=== PATIENT | male | born 1940 | race Caucasian/White ===

== ENCOUNTER 2018-04-25 17:01 | Inpatient (IN) | payer OTHER ==
[~2018-04-25] VITALS: Ht 175.3 cm; Wt 73.3 kg
[2018-04-25] VITALS (7 sets, daily range): BP systolic 129–169; BP diastolic 60–85
--- NOTE | ~2018-04-25 | H ---
[facility] [place] [address] HISTORY AND PHYSICAL Name: FLACO SINGH Room #: 238-P ADM IN M.R.#: [id number] Admission: 04/25/18 Attend Phys: Marcio Lawler MD Discharge: Date of : 38 Report #: [id number] THIS REPORT FOR: //name// CC: Popeye Lawler DATE OF SERVICE: 04/25/2018 HISTORY OF PRESENT ILLNESS: The patient is an 78-year-old white male who was admitted with left-sided weakness, leaning to his left, but his left arm hanging. He also had slurred speech. He was diagnosed with a CVA and is underwent TPA. He was noted to have 50% left internal carotid artery stenosis. CT showed a 1.4 cm lytic lesion within the right frontoparietal calvarium thought to likely be benign. He has a followup CT scan ordered later today. He is currently in the intensive care unit. We are seeing him in rehabilitation medicine consultation. PAST MEDICAL HISTORY: Includes hypertension, hyperlipidemia, coronary artery disease status post stenting, tobacco abuse. He has had right patellar surgery. He has had a right hip replacement. He had a left shoulder, apparently a fracture of the humeral head and underwent therapy and never regained good range of motion of that left shoulder. There is a note of some mild dementia, although he has been living in the community. ALLERGIES: No known drug allergies. HABITS: Tobacco 1 to 1-1/2 packs per day, current every day smoker. There is a history of some past alcohol usage. FAMILY HISTORY: Heart disease and hypertension. SOCIAL HISTORY: He lives with his , trailer home. Plan, however, is to live with his daughter and son-in-law in a house, 4 steps in total to get in. Daughter does work, but will be taking time off to assist her father as indicated. The patient did premorbidly ambulated without gait aids and was driving in the community. There is an involved son as well in the area. REVIEW OF SYSTEMS: He did not offer any current complaints of chest pain, shortness of breath or abdominal discomfort. No complaints of focal pain. Denies any swallowing issues, although he does note the slurring of speech. PHYSICAL EXAMINATION: GENERAL: He is a pleasant 78-year-old thin white male, in no obvious distress. VITAL SIGNS: Last recorded temperature 98.6, pulse 69, respirations 20, and blood pressure 139/37. NEUROLOGIC: The patient is alert, pleasant. He has a definite left facial [facility] [address] [place] [address] HISTORY AND PHYSICAL Name: FLACO SINGH Room #: 238-P [facility].#: [id number] Admission: 04/25/18 Attend Phys: Marcio Lawler MD Discharge: Date of : 38 Report #: [id number] droop with depressed left nasolabial fold. EOMs appeared to be full. Son notes that the patient did have some decreased left visual field problems premorbidly. He has good extraocular movements. Functional range of motion of the right upper and right lower extremity without focal weakness. DTRs are trace to 1. Left upper extremity, no volitional movement was noted, proximal or distal. Tone is decreased. Faulkner's negative. Left lower extremity, he does have some movement, probably a grade 3- proximally and 3- distally. He is able to wiggle those toes some. DTRs were trace. No clonus. Sensation reasonably intact to simultaneous stimulation, left face and both upper and lower extremities. ASSESSMENT: This is an 78-year-old right-handed white male with the following problem list: 1. Nondominant hemispheric right-sided cerebrovascular accident. 2. Left hemiparesis, upper extremity greater than lower extremity. 3. Left-sided facial weakness with dysarthria. 4. A 50% left internal carotid artery stenosis. 5. The patient is status post TPA. 6. History of coronary artery disease, status post stenting. 7. Tobacco abuse. 8. Hypertension. 9. Hyperlipidemia. 10. Prior history of left shoulder remote fracture with decreased range of motion. PLAN: He is currently in the ICU. He is to have a followup CT of the head today. Therapy evaluations are underway with PT, OT and speech. He certainly may benefit from an acute in-hospital inpatient rehabilitation program as he further medically stabilizes. Discussion with the family. We will be glad to follow along with you regarding his rehab therapy needs. By: [id number] Ulysses Khalil MD /nt
[2018-04-25 17:34] LABS: HEMATOCRIT 46.5 % (42.0-52.0); HEMOGLOBIN 16.1 gm/dL (14.0-18.0); MCH 30.3 pg (26.0-34.0); MCHC 34.6 g/dL (28.0-37.0); MCV 87.5 fL (80.0-100.0); PLATELET COUNT 297 thou/uL (150-400); RBC 5.31 mil/uL (4.50-6.00); RDW 13.4 % (10.5-14.5); WBC 7.1 thou/uL (4.0-11.0)
[2018-04-25 17:45] LABS: ANION GAP 11 mmol/L (7-16); BUN 13 mg/dL (7-18); CHLORIDE 101 mmol/L (98-107); CO2 28 mmol/L (21-32); GLUCOSE 123 mg/dL (74-106); POTASSIUM 3.5 mmol/L (3.5-5.1); SODIUM 140 mmol/L (136-145)
--- NOTE | 2018-04-25 17:51 | EKG ---
[place] [address] [facility] [place] [address] ELECTROCARDIOGRAM REPORT Name: FLACO SINGH Room #: REG JYOTI Valencia#: [id number] Admission: 04/25/18 Attend Phys: Discharge: Date of : 36 Report #: [id number] THIS REPORT FOR: //name// [facility] ED Test Date: 2018-04-25 Test Time: 17:21:01 Pat Name: FLACO SINGH Department: Room: Gender: M Way Inspector: MIKEEfra : [id number] Requested By: Melly Peterson Order Number: [id number] MD: Jayesh Pettit Measurements Intervals Garber Rate: 75 P: -16 SD: 190 QRS: -49 QRSD: 145 T: 105 QT: 435 QTc: 486 Interpretive Statements Sinus rhythm Left bundle branch block Occasional PVC No previous ECG available for comparison Electronically Signed On 04-25-2018 17:51:18 TABLE ATTENDANT by Jayesh Pettit [email or web address] <ELECTRONICALLY SIGNED> By: Jayesh Pettit MD 04/25/18 1751 1721 1721 Jayesh Pettit MD /EPI
[2018-04-25 17:55] LABS: ALBUMIN 3.8 g/dL (3.4-5.0); SGOT 19 U/L (15-37); SGPT 25 U/L (30-65); TOTAL BILIRUBIN 0.4 mg/dL (<0.1-1.0); TROPONIN-I <0.06 ng/mL (<0.06)
[2018-04-25 18:00] LABS: ABSOLUTE NEUTROPHILS 5.2 thou/uL (1.4-8.2); ANISOCYTOSIS 1+
[2018-04-25 18:17] LABS: URINE BILIRUBIN NEGATIVE (Negative); URINE BLOOD NEGATIVE (Negative); URINE CLARITY SLIGHTLY CLOUDY; URINE COLOR YELLOW; URINE GLUCOSE-RANDOM* NEGATIVE (Negative); URINE KETONES NEGATIVE (Negative); URINE LEUKOCYTES-REFLEX NEGATIVE (Negative); URINE NITRITE-REFLEX NEGATIVE (Negative); URINE PROTEIN (DIPSTICK) NEGATIVE (Negative); URINE UROBILINOGEN 0.2 E.U./dl (0.2-1.0)
[2018-04-25 19:14] LABS: PROTIME 9.5 Seconds (9.3-11.4)
[2018-04-25] MEDS ORDERED: AMLODIPINE BESY10 MG PO (19:14)
[2018-04-25] MEDS ORDERED: ARICEPT 5 MG TAB5 MG PO (19:14)
[2018-04-25 19:19] LABS: CHOLESTEROL 256 mg/dL (<200); HDL CHOLESTEROL 46 mg/dL (>40); LDL CHOLESTEROL 187 mg/dL (<100); TC:HDL 5.6 Ratio (Not establshd); TRIGLYCERIDE 119 mg/dL (<150); VLDL 24 mg/dL (<40)
[2018-04-25 19:21] LABS: SERUM ASSESSMENT Clear
[2018-04-25 19:47] LABS: TSH 0.725 uIU/mL (0.358-3.740)
[2018-04-26] VITALS (21 sets, daily range): BP systolic 131–172; BP diastolic 37–82
[2018-04-26 05:59] LABS: HEMATOCRIT 42.8 % (42.0-52.0); HEMOGLOBIN 15.1 gm/dL (14.0-18.0); MCH 30.7 pg (26.0-34.0); MCHC 35.2 g/dL (28.0-37.0); MCV 87.3 fL (80.0-100.0); RBC 4.9 mil/uL (4.50-6.00); RDW 13.4 % (10.5-14.5); WBC 6.8 thou/uL (4.0-11.0)
[2018-04-26 06:15] LABS: ALBUMIN 3.2 g/dL (3.4-5.0); CALCIUM 8.6 mg/dL (8.5-10.1); CREATININE 0.9 mg/dL (0.7-1.3); POTASSIUM 3.4 mmol/L (3.5-5.1); TOTAL BILIRUBIN 0.8 mg/dL (<0.1-1.0)
--- NOTE | 2018-04-26 07:00 | NUR ---
Pt received into room 238 last pm, made comfortable in bed and monitor applied. See rhythm strips. No changes in neuro status observed through the night. VS stable and SpO2 adequate on RA. Voiding per urinal without difficulty and no BM observed. Family at bedside for most of the night. Am lab results noted, continue with POC.
--- NOTE | 2018-04-26 08:00 | 2DMMODE ---
[facility] [place] [address] 2 D/M-MODE ECHOCARDIOGRAM Name: FLACO SINGH Room #: 238-P ADM IN M.R.#: [id number] Admission: 04/25/18 Attend Phys: Marcio Lawler MD Discharge: Date of : 36 Date of Service: 04/26/18 0800 Report #: [id number] THIS REPORT FOR: //name// APPROVED REPORT Study performed: 04/26/2018 06:50:40 EXAM: Comprehensive 2D, Doppler, and color-flow Echocardiogram Patient Location: ICU Room #: 238 Status: routine BSA: 1.85 HR: 70 bpm BP: 137/67 mmHg Rhythm: Sinus/Frequent PVCs Other Information Study Quality: Adequate/low window/heavy beathing. Indications CVA/TIA Hx: CAD, stent, HTN, HLP, Tobacco abuse. Echo Enhancing Agent Indication: Rule out Shunt Agent(s) / Amount(s) Used: Agitated Saline 6 cc 2D Dimensions RVDd: 35.44 mm IVSd: 14.00 (7-11mm) LVOT Diam: 22.24 (18-24mm) LVDd: 49.23 mm PWd: 11.00 (7-11mm) LVDs: 39.92 (25-40mm) Aortic Root: 36.73 mm Volumes Left Atrial Volume (Systole) Single Plane 4CH: 44.71 mL Single Plane 2CH: 59.95 mL LA ESV Index: 31.00 mL/m2 Aortic Valve AoV Peak Franco.: 1.45 m/s AO Peak Gr.: 8.38 mmHg LVOT Max P.76 mmHg LVOT Max V: 0.97 m/s [facility] [address] [place] [address] 2 D/M-MODE ECHOCARDIOGRAM Name: FLACO SINGH Room #: 238-[facility] IN .R.#: [id number] Admission: 04/25/18 Attend Phys: Marcio Lawler MD Discharge: Date of : 36 Date of Service: 04/26/18 0800 Report #: [id number] BULMARO Vmax: 2.60 cm2 Mitral Valve E/A Ratio: 0.7 MV Decel. Time: 464.62 ms MV E Max Franco.: 0.69 m/s MV A Franco.: 1.00 m/s MV PHT: 134.74 ms IVRT: 124.57 ms Pulmonary Valve PV Peak Franco.: 0.96 m/s PV Peak Gr.: 3.72 mmHg Pulmonary Vein P Vein S: 0.55 m/s P Vein A: 0.33 m/s P Vein D: 0.33 m/s P Vein S/D Ratio: 1.67 Tricuspid Valve RAP Estimate: 5.00 mmHg Left Ventricle The left ventricle is normal size. There is global hypokinesis of the left ventricle. Moderate basal septal hypertrophy is present. Left ventricular systolic function is at the lower limits of normal LVEF is 45-50%. Mild diastolic dysfunction is present (impaired relaxation pattern). Right Ventricle The right ventricle is normal size. The right ventricular systolic function is normal. Atria The left atrium size is normal. No shunting noted by contast bubble injection. The right atrium size is normal. Aortic Valve The aortic valve is mildly sclerotic. No aortic regurgitation is present. There is no aortic valvular stenosis. Mitral Valve Mild mitral annular calcification. There is no mitral valve regurgitation noted. No evidence of mitral valve stenosis. Tricuspid Valve The tricuspid valve is normal in structure. There is no tricuspid [address] [address] 2 D/M-MODE ECHOCARDIOGRAM Name: FLACO SINGH Room #: 238-[facility] IN M.R.#: [id number] Admission: 04/25/18 Attend Phys: Marcio Lawler MD Discharge: Date of : 36 Date of Service: 04/26/18 0800 Report #: [id number] valve regurgitation noted. Unable to assess PA pressure. Pulmonic Valve Pulmonic valve is not well visualized. Great Vessels The aortic root is normal in size. Ascending aorta is not well visualized. IVC is normal in size and collapses >50% with inspiration. Pericardium There is no pericardial effusion. <Conclusion> Left ventricular systolic function is at the lower limits of normal Moderate basal septal hypertrophy is present. LVEF is 45-50%. Mild diastolic dysfunction No shunting noted by contast bubble injection. The aortic valve is mildly sclerotic. No aortic regurgitation or stenosis Mild mitral annular calcification. No mitral valve regurgitation There is no pericardial effusion. <ELECTRONICALLY SIGNED> By: Maurice Cristobal MD, FACC 04/26/18799 9 9 Maurice Cristobal MD, FACC /INF
--- NOTE | 2018-04-26 10:40 | NUR ---
family services coordinator to see patient. pt still having left arm flaccidity and left lower ext weakness. left sided facial droop with slurred speech. family at bedside. dr kitchen at bedside assessing patient. pt to begin therapy hang. family agreement. this RN to follow patients stay. will visit tomorrow.
[2018-04-26] MEDS ORDERED: RESTORIL30 MG PO (13:58)
[2018-04-26] MEDS ORDERED: LISINOPRIL40 MG PO (13:59)
[2018-04-26] MEDS ORDERED: PROPRANOLOL 1010 MG PO (14:00)
[2018-04-26] MEDS ORDERED: LINZESS145 MCG PO (14:01)
[2018-04-26] MEDS ORDERED: PERCOCET PO (14:04)
[2018-04-26] MEDS ORDERED: PERCOCET 7.5-31 EACH PO (14:04)
--- NOTE | 2018-04-26 14:06 | NUR ---
CM ASSESSMENT: CASE OPENED FOR DC PLANNING. CLINICAL INFO REVIEWED. ADMIT WITH STROKE AND S/P TPA. MET WITH PT WHO IS ALERT AND ORIENTED, HIS DTR KEVIN AND SON IN LAW [place]. PT AND SPOPUSE LIVE IN MOBILE HOME WITH RAMP AT ENTRANCE. PT INDEPENDENT WITH ADL AND IADLS APPRAISER OIL AND WATER, DRIVING. NO DME OR PREVIOUS HH. THERAPY EVALS ORDERED AND DISCUSSED LIKELY NEED FOR SOME LEVEL OF REHAB WHEN MEDICALLY STABLE AND PT AND FAMILY OPEN TO RECOMMENDATION FROM MEDICAL STAFF. COMPLETED AD/DPOA AND COPY PLACED IN [facility] CHART. WILL FOLLOW TO ASSIST WITH COORDINATION OF DC NEEDS. 5N FOLLOWING.
[2018-04-26 18:10] LABS: GLYCOHEMOGLOBIN (HGB A1C) 6.1 % (4.8-5.6)
--- NOTE | 2018-04-26 20:29 | NUR ---
PATIENT ALERT AND ORIENTED X3, FORGETFUL AT TIMES. SINUS RHYTHM ON CAMPAIGN ASSISTANT. ON ROOM AIR, NO SIGNS OF RESPIRATORY DISTRESS. TOLERATING PUREED DIET WELL. NO COMPLAINTS OF PAIN. PATIENT HAS INCREASED MOVEMENT IN LEFT LEG DURING THE END OF SHIFT. FAMILY AND PATIENT UPDATED ON THE PLAN OF CARE. NO SIGNS OF ACUTE DISTRESS NOTED AT THIS TIME. WILL CONTINUE TO MONITOR.
[2018-04-27] VITALS (9 sets, daily range): BP systolic 119–154; BP diastolic 43–87
--- NOTE | 2018-04-27 01:17 | NUR ---
ASSUMED CARE OF PATIENT AT 1900. VSS, AFEBRILE. VERY RESTLESS IN BED, CONTINUOUSLY ASKING FOR WHEELCHAIR AND TO GO HOME. TAKEN TO CT SCAN ORDERED, RESULTS RECIEVED AND DR LOMBARDI AND MERCHANDISE MANAGER NOTIFIED OF RESULTS. ORDERS TO KEEP PATIENT IN ICU OVERNIGHT OBTAINED. INCONTINENT OF URINE MULTIPLE TIMES, SEVERAL BED CHANGES DONE, ABLE TO TURN SELF TO RIGHT, CONTINUES TO HAVE LEFT SIDE DEFICIT. FAMILY AT BEDSIDE, UPDATED ON POC. ALL QUESTIONS ANSWERED, THEY VERBALIZED UNDERSTANDING. PATIENT VERY FORGETFUL. ONE DOSE PRN ATIVAN GIVEN, MINIMAL EFFECT INITIALLY. WAS ABLE TO SLEEP SEVERAL HOURS LATER. WILL CONTINUE TO MONITOR CLOSELY.
--- NOTE | 2018-04-27 18:22 | NUR ---
PT IS ALERT AND ORIENTED X4. CONFUSED AT TIMES AND RESTLESS AND AGITATED AT TIMES. MEDS GIVEN FOR AGITATION AND ANXIETY TODAY. RIGHT WRIST RESTRAINT DUE TO PT KICKING HIS AND AGITATION NOTED TODAY. AND TRYING TO CLIMB OUT OF BED. SO TO PROVIDE SAFETY IN RIGHT WRIST RESTRAINT. CT DONE TODAY AND DR. LOMBARDI WENT OVER RESULTS WITH FAMILY. SINUS RHYTHM PVC NOTED. NECTAR THICK LIQUIDS. DYSPHAGIA NOTED WITH SPEECH. LEFT SIDE NO MOVEMENT AT THIS TIME. FOELY TO DD WITH YELLOW URINE PRESENT. WILL CONTINUE TO MONITOR AND ASSESS PT PER NURSING.
[2018-04-28] VITALS (18 sets, daily range): BP systolic 122–159; BP diastolic 48–84
--- NOTE | 2018-04-28 05:53 | NUR ---
THIS RN ASSUMED CARE OF PT AT 1900, ASSESSMENTS DOCUMENTED. VSS OVERNIGHT, NO DISTRESS NOTED, ON RA. PT HAS SIGNIFICANT LEFT SIDES WEAKNESS UPPER/LOWER EXTREMITIES ALONG W/ LEFT SIDED FACIAL DROOP. PT DOES HAVE SOME MOVEMENT IN LLE, BUT NONE NOTED IN LUE. DYSPHAGIA AND APHASIA NOTED, PT ON NECTAR LIQUIDS, NO COUGHING NOTED DURING DRINKING. PT REMAINS IN SR OVERNIGHT W/ HR 70-80'S SOME PVC'S. ONE SMALL SOFT UNFORMED BM, INC. BARRIOS W/ ADEQUATE UOP OF 400ML. PT FORGETFUL/CONFUSED OFF/ON, REORIENTED FREQUENTLY. PRN ATIVAN GIVEN X1 FOR ANXIETY/RESTLESSNESS. DTR AT BEDSIDE OVERNIGHT, FAMILY VERY INVOLVED AND HELPFUL. EMOTIONAL SUPPORT PROVIDED.
--- NOTE | 2018-04-28 13:54 | NUR ---
HUMAN RESOURCES COMPLIANCE MANAGER INITIATED REQUEST FOR AUTHORIZATION WITH THE [employer] FOR ACUTE REHAB STAY. INFORMATION REQUESTED SENT TO ADELIA Olmstead (NURSE) AT FAX #[phone]. TO CONTACT ADELIA LINDSAY [phone] AND REQUEST ADELIA Olmstead INFORMATION MUST BE REVIEWED BY THE [facility] PHYSIATIRST WHO WILL DECIDE IF AUTHORIZATION CAN BE GIVEN. AUTHORIZATION NOT EXPECTED UNTIL AFTER THE WEEKEND (05/01/18).
--- NOTE | 2018-04-28 14:45 | NUR ---
ASSUMED CARE OF PT AT 0700 THIS SHIFT. PT HAS BEEN MOSTLY COOPERATIVE, IS SOMEWHAT IMPULSIVE AT TIMES. PT WORKED WITH PHYSICAL AND OCCUPATIONAL THERAPY THIS SHIFT. PT HAD A VIDEO SWALLOW DONE WITH SPEECH THERAPY, ASPIRATING ON NECTAR THICK CONSISTENCY, SWITCHED TO HONEY THICK LIQUIDS. PT WAS SEEN BY DR YOUSIF, AND IS OK TO TRANSFER OUT OF ICU AT THIS TIME. PT HAS HAD FAMILY IN ROOM THIS SHIFT, EDUCATION WAS PROVIDED.
--- NOTE | 2018-04-28 18:31 | NUR ---
PT STATUS - PT'S NIH 12 UPON ARRIVAL, PT/FAMILY REQUESTED BARRIOS BE DC'D. REMOVED BARRIOS PER DR MIKE, PT PLACED ON ELECTROLYTE PROT R/T 3.4 K. FAMILY AT BEDSIDE AND VERY HELPFUL. PT HAS BEEN PASSING SMALL CLOTS WHEN VOIDING INTO URINAL. ENCOURAGED PT/FAMILY TO BE AT 90 DEGREES, UPRIGHT, WHEN EATING OR DRINKING. PT/FAMILY VERBALIZED UNDERSTANDING, WILL MONITOR.
[2018-04-29] VITALS: BP 140/64
[2018-04-29 04:49] VITALS: BP 158/67
[2018-04-29] MEDS ORDERED: BYSTOLIC10 MG PO (05:26)
[2018-04-29] MEDS ORDERED: DIOVAN320 MG PO (05:27)
[2018-04-29] MEDS ORDERED: ASPIR 8181 MG PO (05:28)
[2018-04-29] MEDS ORDERED: IBUPROFEN 600600 M1 PO (05:29)
[2018-04-29 05:47] LABS: CALCIUM 8.8 mg/dL (8.5-10.1); CREATININE 0.8 mg/dL (0.7-1.3); POTASSIUM 3.3 mmol/L (3.5-5.1)
--- NOTE | 2018-04-29 05:58 | NUR ---
ASSUMMED PT CARE AT 1900. PT IS ALERT AND ORIENTED TO PERSON. FAMILY IS PRESENT AT BEDSIDE. NO SIGN OF DISTRESS NOTED IN PT. SCHEDULED MED ADMINISTERED TO PT. VITAL SIGN STABLE. NO CHANAGE IN STATUS. FAMILY AT BEDSIDE AND SUPPORTIVE. DENIES ANY NEED AT THIS TIME.
[2018-04-29 07:10] VITALS: BP 167/78
[2018-04-29 11:20] VITALS: BP 146/55
[2018-04-29 15:20] VITALS: BP 144/75
[2018-04-29 20:10] VITALS: BP 157/62
--- NOTE | 2018-04-30 01:41 | NUR ---
AOX4, DENIES ANY PAIN. LEFT HEMIPLEGIA, MOTORS: LEFT UPPER EXTREMITY 0/5, LEFT LOWER EXTREMITY 1/5, SLURRED SPEECH, LEFT FACIAL DROOP, NO ATAXIA, NO SENSORY NEGLECT. 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 SR WITH PVCS ON THE MONITOR. LUNG SOUNDS CLEAR, DIMINISHED ON THE BASES, ON ROOM AIR. NON PRODUCTIVE COUGH NOTED. MAINTAINED ON ASPIRATION PRECAUTION. MAINTAINED ON FALL PRECAUTION. TURNING Q 2 HOURS DONE, ORAL CARE RENDERED. PERIANAL CARE DONE. SCD INTACT. RIGHT FOREARM G 20 INTACT AND FLUSHES WELL. GAVE A PASSCODE TO DPOA DAUGHTER SABRINA. HOLDER (SON) AT BEDSIDE FOR THE NIGHT. FF UP POC.
[2018-04-30 05:30] VITALS: BP 155/60
[2018-04-30 07:15] VITALS: BP 172/72
[2018-04-30] MEDS ORDERED: LINZESS145 MCG PO (10:04)
[2018-04-30] MEDS ORDERED: RESTORIL30 MG PO (10:05)
[2018-04-30] MEDS ORDERED: PROPRANOLOL 1010 MG PO (10:05)
[2018-04-30] MEDS ORDERED: AMLODIPINE BESY10 MG PO (10:06)
[2018-04-30] MEDS ORDERED: LISINOPRIL40 MG PO (10:06)
[2018-04-30] MEDS ORDERED: ARICEPT 5 MG TAB5 MG PO (10:07)
[2018-04-30 11:00] VITALS: BP 139/50
[2018-04-30 15:20] VITALS: BP 145/71
--- NOTE | 2018-04-30 17:36 | NUR ---
PT CARE ASSUMED AT 0700. PT ALERT AND ORIENTED X4 WITH MILD FORGETFULNESS. DENIES PAIN AND SOA. BP SLIGHTLY ELEVATED THIS AM AND PRN MED WAS GIVEN ALONG WITH SCHEDULED MEDS. BP WNL THEREAFTER. VSS. BS WNL AND PT NOT DIABETIC SO ACCUCHECKS DC'D PER DR MIKE. FAMILY AT BEDSIDE ENTIRE SHIFT. PT AND ALL FAMILY DENY QUESTIONS OR CONERNS REGARDING POC. PT TRANSFERRED TO CHAIR FOR A FEW HRS THIS AFTERNOON AND BACK TO BED THIS EVENING. INCONT OF URINE. LEFT ARM SLING ORDERED. PT CONTINUES TO APPEAR TO BE AT HIS NEUROLOGIC BASELINE. NO CONCERNS VOICED BY FAMILY. NO DISTRESS NOTED THIS SHIFT OR AT THIS TIME.
[2018-04-30 20:10] VITALS: BP 158/79
[2018-04-30 20:12] VITALS: BP 158/79
--- NOTE | 2018-05-01 05:48 | NUR ---
PT ALERT AND ORIENTED X4. SLEPT THROUGHOUT THE NIGHT AFTER MELATONIN AND TAMAZEPAM. FAMILY AT BEDSIDE. C/O OF HEADACHE, ALLEVIATED BY TYLENOL . LEFT SIDED WEAKNESS, WITH STILL SLURRED SPEACH. OTHERWISE NEUROS INTACT. WILL CONTINUE TO MONITOR.
[2018-05-01 06:21] VITALS: BP 159/77
[2018-05-01 07:20] VITALS: BP 131/55
--- NOTE | 2018-05-01 10:08 | NUR ---
5n in process of auth for acute [facility]hab however [facility].
[2018-05-01 11:40] VITALS: BP 147/76
--- NOTE | 2018-05-01 12:41 | NUR ---
PT HAD EPISODES OF BRADYCARDIA IN 30'S WITH BIGEMINY PVCS. PT AVG HEART RATE IN 50'S. PT STATED HE HAD DIZZYNESS WHEN TRANSFERRING TO CHAIR. DR. NICHOLS PAGED AT 1200 ([employer]). PT BECAME DIAPHORETIC AT 1230 AND BLOOD PRESSURE WAS 153/72 (86), HEART RATE 54, O2 98%. PT'S HEAVY BLANKETS REMOVED, COOL CLOTH APPLIED AND FAN ON. PT LAID BACK IN CHAIR AND RELAXING. AWAITING DR. NICHOLS'S RETURN CALL.
[2018-05-01 15:50] VITALS: BP 166/88
[2018-05-01 20:33] VITALS: BP 151/46
--- NOTE | 2018-05-01 20:52 | NUR ---
ASSUMED CARE OF PT AT 0700. PT ALERT AND ONLY ORIENTED TO SELF IN AM. AT LUNCH TIME PT MORE ORIENTED AND ABLE TO STATE PLACE AND YEAR. PT FOLLOWING COMMANDS. FAMILY AT BEDSIDE AND COMMUNICATED IMPROVEMENT IN PT'S ORIENTATION LEVEL AND FACIAL DROOP. PT HAD BRADYCARDIA WITH BIGEMINAL PVCS THIS MORNING, DROPPING TO [address] NICHOLS NOTIFIED. MEDICATIONS REVIEWED AND CHANGES MADE. PT HAD LOW URINE OUTPUT, BUT NOT DRINKING MUCH. DR. NICHOLS NOTIFIED AND STATED HE WOULD MAKE CHANGES AFTER REVIEW OF PT'S MEDICAL RECORDS. INSULATING MACHINE OPERATOR NURSE MADE AWARE. PT'S HEART RATE IN 50-60S THIS AFTERNOON. WILL CONT WITH POC.
[2018-05-02 03:38] LABS: ALBUMIN 2.8 g/dL (3.4-5.0); CALCIUM 8.6 mg/dL (8.5-10.1); CREATININE 0.8 mg/dL (0.7-1.3); HEMATOCRIT 40.9 % (42.0-52.0); HEMOGLOBIN 14.1 gm/dL (14.0-18.0); MAGNESIUM 2.1 mg/dL (1.8-2.4); MCH 30.2 pg (26.0-34.0); MCHC 34.5 g/dL (28.0-37.0); MCV 87.5 fL (80.0-100.0); POTASSIUM 3.1 mmol/L (3.5-5.1); RBC 4.68 mil/uL (4.50-6.00); RDW 13.5 % (10.5-14.5); TOTAL BILIRUBIN 0.5 mg/dL (<0.1-1.0); TOTAL PROTEIN 6.7 g/dL (6.4-8.2); WBC 8.1 thou/uL (4.0-11.0)
--- NOTE | 2018-05-02 03:48 | NUR ---
ASSUMED PT CARE AT 1900. PT A/OX4, FAMILY AT BEDSIDE. NO COMPLAINTS OF PAIN/CHEST PAIN. STILL SOME VISISBLE FACIAL DROOPING AND LEFT SIDED WEAKNESS. VITAL SIGNS STABLE, ASSESSMENT CHARTED. MEDS CRUSHED AND GIVEN IN PUDDING. TOLERATED WELL. RESTED WELL THROUGH THE NIGHT.PROGRESSING TOWARD PLAN OF CARE. WILL CONTINUE TO MONITOR.
[2018-05-02 04:19] VITALS: BP 116/45
[2018-05-02 07:30] VITALS: BP 148/53
--- NOTE | 2018-05-02 08:13 | NUR ---
[facility] RN ADEL[facility] GAVE [facility]IZ[facility] FOR THIS PATIENT TO ADMIT TO 5N REHAB TODAY. WILL NOTIFY CM AND RN. THANK YOU FOR THIS REFERRAL.
[2018-05-02 11:20] VITALS: BP 142/70
[2018-05-02] MEDS ORDERED: BYSTOLIC 5 MG5 M1 PO (12:09)
[2018-05-02] MEDS ORDERED: TRAMADOL 50 MG50 MG PO (12:09)
[2018-05-02] MEDS ORDERED: NICOTINE TRANSD21 M1 TRANSDERM (12:09)
[2018-05-02] MEDS ORDERED: MIRALAX17 GM PO (12:09)
[2018-05-02] MEDS ORDERED: PEPCID20 MG PO (12:09)
[2018-05-02] MEDS ORDERED: MELATONIN5 M1 PO (12:09)
[2018-05-02] MEDS ORDERED: TRAZODONE 150150 M1 PO (12:09)
[2018-05-02] MEDS ORDERED: ACETAMINOPHEN325 M1 PO (12:09)
[2018-05-02] MEDS ORDERED: RESTORIL7.5 MG PO (12:09)
[2018-05-02] MEDS ORDERED: ATORVASTATIN CA40 MG PO (12:09)
--- NOTE | 2018-05-02 13:24 | NUR ---
rec auth for 5N per 5N liason notified phys for orders. updated dtr Nancy and patient.
--- NOTE | 2018-05-02 14:06 | NUR ---
notified dtr of discharge and room number for acute rehab no further needs
== END 2018-05-02 14:58 | DRG 61 ==
LOC: ER 17:01 → ICU 18:42 → EROBS 18:42 → ICU 20:12 → 2N 04-28 16:07
PROVIDERS: Hospitalist; Internal Medicine; Nurse Practitioner Family; ADMIT Internal Medicine
DX: I63.511 Cerebral infarction due to unspecified occlusion or stenosis of right middle cerebral artery (principal); G93.41 Metabolic encephalopathy; I61.1 Nontraumatic intracerebral hemorrhage in hemisphere, cortical; G81.94 Hemiplegia, unspecified affecting left nondominant side; F17.213 Nicotine dependence, cigarettes, with withdrawal; I10 Essential (primary) hypertension; E78.5 Hyperlipidemia, unspecified; I25.10 Atherosclerotic heart disease of native coronary artery without angina pectoris; I65.22 Occlusion and stenosis of left carotid artery; F03.90 Unspecified dementia, unspecified severity, without behavioral disturbance, psychotic disturbance, mood disturbance, and anxiety; R29.810 Facial weakness; R13.10 Dysphagia, unspecified; F43.10 Post-traumatic stress disorder, unspecified; J44.9 Chronic obstructive pulmonary disease, unspecified; I95.9 Hypotension, unspecified; G89.29 Other chronic pain; M54.5 Low back pain; H54.62 Unqualified visual loss, left eye, normal vision right eye; E87.6 Hypokalemia; G47.00 Insomnia, unspecified; R47.1 Dysarthria and anarthria; Z96.641 Presence of right artificial hip joint; G31.84 Mild cognitive impairment of uncertain or unknown etiology; Z96.651 Presence of right artificial knee joint; Z95.5 Presence of coronary angioplasty implant and graft; Z79.899 Other long term (current) drug therapy; Z82.49 Family history of ischemic heart disease and other diseases of the circulatory system; Z71.6 Tobacco abuse counseling; Z87.81 Personal history of (healed) traumatic fracture; Z86.73 Personal history of transient ischemic attack (TIA), and cerebral infarction without residual deficits; Z91.14 Patient's other noncompliance with medication regimen; Z78.1 Physical restraint status
CPT/HCPCS: 10078; 10081

== ENCOUNTER 2018-05-02 12:55 | Inpatient (IN) | payer OTHER ==
[~2018-05-02] VITALS: Ht 172.7 cm; Wt 81.6 kg
[~2018-05-02 12:55] MED LIST: ACETAMINOPHEN325 M1 PO; AMLODIPINE BESY10 MG PO; ARICEPT 5 MG TAB5 MG PO; ASPIR 8181 MG PO; ATORVASTATIN CA40 MG PO; BYSTOLIC 5 MG5 M1 PO; BYSTOLIC10 MG PO; DIOVAN320 MG PO; IBUPROFEN 600600 M1 PO; LINZESS145 MCG PO; LISINOPRIL40 MG PO; MELATONIN5 M1 PO; MIRALAX17 GM PO; NICOTINE TRANSD21 M1 TRANSDERM; PEPCID20 MG PO; PERCOCET 7.5-31 EACH PO; PERCOCET PO; PROPRANOLOL 1010 MG PO; RESTORIL30 MG PO; RESTORIL7.5 MG PO; TRAMADOL 50 MG50 MG PO; TRAZODONE 150150 M1 PO
--- NOTE | 2018-05-02 16:09 | NUR ---
1500 ADMITTED TO ROOM 504-2 WITH DX OF CVA. PATIENT IS ALERT AND ORIENTED X4. PATIENT HAS LEFT ARM FLACCIDITY, AND LEFT LEG WEAKNESS. PATIENT ABLE TO WIGGLE HIS TOES. PATIENT HAS MILD LEFT FACIAL DROOP. PATIENT HAS SOME EXPRESSIVE APHAGIA. FAMILY AT BEDSIDE. AT BEDSIDE. LUNGS ARE CLEAR. ABD IS SOFT WITH BSX4. PATIENT HAD BM TODAY. NO EDEMA NOTED IN HIS LOWER EXTREMITIES. PATIENT HAS UPPER DENTURES, GLASSES, AND HEARING AIDS HE LEFT AT HOME. PATIENT IS ON 2 GM NA PUREED DIET, WITH HONEY THICK LIQUIDS. PATIENT TAKES PILLS IN APPLESAUCE. PATIENT HAS STRESS INCONTINENCE. URINAL AT BEDSIDE. PT/OT/ST AMIRA IN THE A.M. CONSULTS CALLED. WILL CONTINUE TO MONITER.
[2018-05-02 21:30] VITALS: BP 139/70; BP 178/70
--- NOTE | 2018-05-03 03:18 | NUR ---
ASSUMED CARE OF PT AT 1915. PT SLEPT THROUGH MUCH OF THE EVENING. FAMILY AT BEDSIDE DURING THE EVENING AND NIGHT. PT INCONT URINE. LEFT ARM REMAINS FLACCID, ABLE TO MOVE TOES ON LEFT FOOT. SOME EXPRESSIVE APHASIA AND LEFT FACIAL DROOP PRESENT. DENIES PAIN, NAUSEA OR DYPSNEA. MEDS TAKEN IN APPLESAUCE WITHOUT DIFFICULTY. HAS APPEARED TO BE SLEEPING WHEN CHECKED ON HOURLY ROUNDS. FALL PRECAUTIONS IN PLACE.
[2018-05-03 04:13] LABS: CALCIUM 8.7 mg/dL (8.5-10.1); CREATININE 0.8 mg/dL (0.7-1.3); POTASSIUM 3.3 mmol/L (3.5-5.1)
[2018-05-03 04:23] LABS: HEMATOCRIT 38.9 % (42.0-52.0); HEMOGLOBIN 13.5 gm/dL (14.0-18.0); MCH 30.3 pg (26.0-34.0); MCHC 34.8 g/dL (28.0-37.0); MCV 87.1 fL (80.0-100.0); RBC 4.47 mil/uL (4.50-6.00); RDW 13.2 % (10.5-14.5); WBC 7.6 thou/uL (4.0-11.0)
--- NOTE | 2018-05-03 08:27 | NUR ---
cm visited with pt, spouse and daughter at bedside. pt working with speech for breakfast. intro to cm, dcp, home health, and team meetings. spouse and daughter kanika reported " he was very very independent prior to hospital. no dme. live in mobile home with spouse, who he would help out his . 4 step and ramp. hh maybe years ago, no other rehab before. he was manage own medication, driving. he will be going to stay with daughter home at discharge, till he is ready to be on there own."/niya. will cont following as needed for dc needs.
[2018-05-03 10:11] VITALS: BP 145/62
--- NOTE | 2018-05-03 13:06 | NUR ---
Nutrition: RD consulted for poor intake. Pt admit with Right CVA, dense left hemiparesis, dyarthria, moderate-severe dysphagia followed by ST. Requires pureed with honey thick liquids diet. Intake ~25% so far on rehab unit. Eats 100% of Ensure pudding. Dislikes magic cup. Continue ensure pudding. States "I eat well if its good". Obtained food preferences. Dtr reports UBW 165# and no significant weight changes. Recent weight of 180# inaccurate. Continue Ensure pudding TID, encouragement, follow weight trends. Otherwise low risk
--- NOTE | 2018-05-03 15:31 | NUR ---
ASSUMED CARE AT APPROX 0715. PATIENT A/O X4. SLURRED SPEECH, SOME EXPRESSIVE APHASIA NOTED. LEFT HEMIPARESIS.VSS. UP IN CHAIR FOR MEALS. LEFT SIDE SUPPORTED WHEN UP IN CHAIR AND IN BED. FALL PRECAUTIONS IN PLACE. FAMILY AT BEDSIDE. SODIUM LEVELS NOTED, PO FLUID INTAKE ENCOURAGED. PATIENT ON HONEY THICK LIQUIDS. ASPIRIN HELD PER NEUROLOGY'S ORDERS, REPEAT CT SCAN TO BE OBTAINED. PATIENT PARTICIPATED IN THERAPY. ROUNDED ON HOURLY. WILL CONTINUE TO MONITOR.
[2018-05-03 19:25] VITALS: BP 152/71
--- NOTE | 2018-05-04 01:03 | NUR ---
ASSUMED CARE OF PT AT 1915. PT ALERT AND ORIENTED X4, CALM AND COOPERATIVE. ASSESSMENT COMPLETED. INCONT URINE X1. DENIES PAIN, NAUSEA OR DYPSNEA. LEFT ARM FLACCID, ABLE TO MOVE TOES ON LEFT FOOT. FAMILY AT BEDSIDE THROUGH THE NIGHT. HAS APPEARED TO BE SLEEPING WHEN CHECKED ON HOURLY ROUNDS. FALL PRECAUTIONS IN PLACE.
[2018-05-04 09:23] VITALS: BP 142/67
--- NOTE | 2018-05-04 14:40 | NUR ---
ASSUMED CARE AT APPROX 0715. PATIENT A/O X4. LEFT HEMIPARESIS NOTED, SOME DYSARTHRIA. C/O GENERALIZED FATIGUE, REQUESTED TYLENOL PRIOR TO THERAPY, ADMINISTERED PER ORDERS. VSS. BP MED HELD PER ORDERS, PATIENT AND FAMILY EDUCATED ABOUT BP LEVELS AFTER STROKE. PATIENT UP IN WHEELCHAIR FOR MEALS AND TOLERATED. LEFT ARM AND UPPER BODY SUPPORTED WITH PILLOWS. FALL PRECUATIONS IN PLACE. PATIENT PARTICIPATING IN THERAPY. PATIENT AND FAMILY EDUCATED ABOUT Q2H TURNING. NO SKIN ISSUES NOTED. WILL CONTINUE TO MONITOR.
--- NOTE | 2018-05-04 15:00 | NUR ---
voice message from [facility] [employer] [facility] anya/driss [phone] " needing to have updated clinical faxed on meeting day and if any dme equip is going to me needed send it with fax and will get it to transition department, fax # [phone]"/driss. education on team meeting on tue and notified 5n unite manager process improvement.
[2018-05-04 20:01] VITALS: BP 147/93
--- NOTE | 2018-05-05 03:50 | NUR ---
PLEASANT, TURNING LEFT SIDE TO BACK TO LEFT SIDE WITH FAMILY ASSISTANCE. HAS USED URINAL, MEDS WITH APPLESAUCE AND SIPS OF HONEY-THICK APPLE JUICE.
[2018-05-05 05:32] LABS: ABSOLUTE NEUTROPHILS 7.4 thou/uL (1.4-8.2); BASOPHILS 0.9 % (0.0-2.0); EOSINOPHILS 0.8 % (0.0-3.0); HEMOGLOBIN 13.7 gm/dL (14.0-18.0); LYMPHOCYTES 15.1 % (24.0-44.0); MCH 29.8 pg (26.0-34.0); MCHC 34.4 g/dL (28.0-37.0); MCV 86.8 fL (80.0-100.0); MONOCYTES 7.8 % (1.0-8.0); PLATELET COUNT 281 thou/uL (150-400); POLYS 75.4 % (36.0-66.0); RBC 4.61 mil/uL (4.50-6.00); RDW 13.3 % (10.5-14.5); WBC 9.8 thou/uL (4.0-11.0)
[2018-05-05 05:45] LABS: CALCIUM 8.5 mg/dL (8.5-10.1); CREATININE 0.9 mg/dL (0.7-1.3); POTASSIUM 3.9 mmol/L (3.5-5.1)
[2018-05-05 08:00] VITALS: BP 136/79
--- NOTE | 2018-05-05 16:46 | NUR ---
ASSUMED CARES AT 0700. PT ALERT AND ORIENTED TO PERSON AND PLACE. DENIES PAIN. VITALS REMAINED STABLE. IV OF LEFT FOREARM DC'D, NEW SKIN TEAR NOTED WHERE 1V TUBING WAS RUBBING AGAINST THE SKIN, CLEANED AND OPTIFORM DRESSING APPLIED. SPOUSE AND DAUGHTER AT BEDSIDE, REPOSITIONING PT Q2H AND PRN. Q1H VISUAL CHECKS. CALL LIGHT WITHIN REACH. FALL PRECAUTIONS IN PLACE
[2018-05-05 20:19] VITALS: BP 128/57
--- NOTE | 2018-05-05 22:00 | NUR ---
UP IN BED, TOLERATING MEDS WITH APPLESAUCE WITH NO POCKETING OR COUGHING. FAMILY AT BEDSIDE AND WILL STAY OVERNIGHT
--- NOTE | 2018-05-06 03:46 | NUR ---
OPTIFOAM TO WRIST INTACT. TURNING SELF A LETTLE LEFT SIDE TO BACK TO LEFT EVEN WHEN APPARENTLY ASLEEP. HOME BRIEF FOR DRIBBLE INCONTINENCE, NOST OF OUTPUT MAKES IT TO URINAL
[2018-05-06 08:15] VITALS: BP 142/70
--- NOTE | 2018-05-06 09:59 | NUR ---
ASSUMED CARES AT 0700. PT IN BED, ALERT AND ORIENTED* 4 BUT FORGETFUL. DENIES PAIN. VITALS STABLE. PT CONTINUES TO HAVE LEFT SIDED WEAKNESS AND FLACCIDITY. CONTINUES TO POCKET FOOD WITH MEALS, 100% SUPERVISION WITH MEALS. MILD BLE EDEMA. CONTINUES TO HAVE A SKIN TEAR ON THE LEFT HAND, DRESSING CHANGED. FAMILY AT BEDSIDE. PT UP WITH 1 PERSON PIVOT TRANSFERS AND TOLERATED WELL. Q1H VISUAL CHECKS. CALL LIGHT WITHIN REACH
[2018-05-06 20:19] VITALS: BP 151/66
--- NOTE | 2018-05-07 02:09 | NUR ---
ASSUMED CARE OF PT AT 1915. PT ALERT AND ORIENTED X4, CALM AND COOPERATIVE. PT'S FAMILY HAS BEEN AT BEDSIDE THROUGHOUT THE SHIFT. ASSESSMENT COMPLETED. PT TAKING PO MEDS WHOLE IN APPLESAUCE WITHOUT DIFFICULTY. INCONT OF URINE. DENIES PAIN, NAUSEA OR DYPSNEA. LEFT ARM AND LEG REMAIN FLACCID. SPEECH IS EASILY UNDERSTOOD. HAS APPEARED TO BE SLEEPING WHEN CHECKED ON HOURLY ROUNDS.
[2018-05-07 07:27] VITALS: BP 125/66
--- NOTE | 2018-05-07 10:26 | NUR ---
ASSUMED CARE AT 0700. PATIENT IS ALERT AND ORIENTED X4. PATIENT HAS LEFT ARM FLACCIDITY AND LEFT LEG WEAKNESS. PATIENT HAS SOME EXPRESSIVE APHAGIA, BUT IT'S IMPROVING. FAMILY AT BEDSIDE. LUNGS ARE CLEAR. ABD IS SOFT WITH BSX4. PATIENT GIVEN MIRALAX AND COLACE FOR NO BM. PATIENT IS INCONTINENT AT TIMES,BUT CAN USE THE URINAL. PATIENT GIVEN GOOD ORAL CARE. NO EDEMA NOTED IN LOWER EXTREMITIES. FALL AND SAFETY PROTOCOLS IN PLACE. C/O GENERALIZED PAIN ALL OVER. MEDICATED WITH PRN PAIN MED. PATIENT CONTINUES TO PROGESS SLOWLY TOWARDS D/C GOALS. PATIENT REMAINS ON HONEY THICK LIQUIDS AND PUREED DIET. WILL CONTINUE TO MONITER.
--- NOTE | 2018-05-08 00:16 | NUR ---
PT LYING IN BED. VOIDING PER URINAL. TYLENOL PROVIDING PAIN RELIEF. RESTING COMFORTABLY. NO NEEDS VOICED. CALL LIGHT WITHIN REACH. WILL CONTINUE TO PROVIDE FREQUENT OBSERVATION. FAMILY AT BEDSIDE.
[2018-05-08 08:00] VITALS: BP 157/58
--- NOTE | 2018-05-08 19:52 | NUR ---
ASSUME PT CARE AT 0700H. PT A&O X4. PT'S FAMILY AT BEDSIDE. PT STATE GENERALIZED PAIN IN THE MORNING. PT TOLERATES MEDS, HONEY THICK LIQUIDS AND PUREE MEALS. PT TOLERATES THERAPY. PT HAD R. WRIST SKIN TEAR WITH OPTI FORM DRG THAT'S C/D/I. PT ON MAX ASSIST ON TRANSFERS DUE TO L SIDE WEAKNESS. PT CONTINUES TO BE ON Q2H TURNS. PT CURRENTLY ON AIR LOSS BED. PT CONTINUES TO BE MONITORED FOR SAFETY.
[2018-05-08 19:58] VITALS: BP 132/59
--- NOTE | 2018-05-09 10:43 | NUR ---
ASSUMED CARES AT 0700. PT AWAKE, ALERT AND ORIENTED*3, CONFUSION. VITALS REMAIN STABLE. DENIES PAIN. CONTINUES TO HAVE FLACCIDITY OF LEFT UPPER AND LOWER EXTREMITY AND LEFT FACIAL WEAKNESS. CONTINUES TO POCKET MEALS ON THE LEFT CHEEK, SUPERVISION WITH MEALS. SPOUSE AND DAUGHTER AT THE BEDSIDE. PT UP WITH 1 PERSON PIVOT TRANSFERS. SKIN TEAR ON RIGHT WRIST RESOLVED, DRESSING DC'D. Q1H VISUAL CHECKS. CALL LIGHT WITHIN REACH. FALL PRECAUTIONS IN PLACE
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
--- NOTE | 2018-05-09 15:12 | NUR ---
team meeting, recommendation to re team, needs droop arm commode, wc with lap board, shower chair. discussed with daughter and at bedside and agree with dcp.
[2018-05-09 19:31] VITALS: BP 139/69
--- NOTE | 2018-05-10 03:47 | NUR ---
ASSUMED CARE OF PT AT 1915. PT ALERT AND ORIENTED X4, CALM AND COOPERATIVE. PT'S AND SON AT BEDSIDE THROUGH THE NIGHT. PT C/O BACK PAIN, RELIEVED WITH PO TYLENOL AT HS. PT NOW ABLE TO MOVE LLE, LUE REMAINS FLACCID. INCONT OF URINE THROUGH THE NIGHT. PT HAS APPEARED TO BE SLEEPING WHEN CHECKED ON HOURLY ROUNDS.
[2018-05-10 08:45] VITALS: BP 148/81
--- NOTE | 2018-05-10 10:34 | NUR ---
physical therapy provided dme request for wheel chair and lap tray. given to [facility] conference [facility] manager [facility] on his [facility] needs at [facility].
--- NOTE | 2018-05-10 11:10 | NUR ---
ASSUMED CARE AT 0700. PATIENT ALERT AND ORIENTED X4. PATIENT HAS LEFT SIDED FLACCIDIITY. LEFT LEG WEAKNESS. LUNGS ARE CLEAR. ABD IS SOFT WTH BSX4. PATIENT HAD BM TODAY. INCONTINENT OF URINE IN THE PAD. PATIENT IS ALSO UP TO THE BATHROOM WITH ASSIST OF 2. UP IN W/C FOR BREAKFAST. FALL AND SAFETY PROTOCOLS IN PLACE. DENIES ANY PAIN AT THIS TIME. CONTINUES TO PROGRESS SLOWLY TOWARDS D/C GOALS.
--- NOTE | 2018-05-10 12:49 | NUR ---
Nutrition: pt seen per followup. Continues to require modified solids/liquids which he dislikes but still pushing self to eat relatively well, 50-75% of meals recorded. Dtrs agree he is doing fairly well with intake at least 50% most meals and continues to enjoy the ensure pudding supplements. No weight taken since admit. Requested from nsg. Dtr has brought in some appropriate outside foods. Continue as low risk.
--- NOTE | 2018-05-10 14:13 | NUR ---
Patient participated in community reintegration on 05/10/18 with Speech Therapy. Refer to documentation by
[2018-05-10 19:19] VITALS: BP 134/87
--- NOTE | 2018-05-11 03:36 | NUR ---
ASSUMED CARE OF PT AT 1915. PT ALERT AND ORIENTED X4. PT'S AND SON AT BEDSIDE THROUGH THE NIGHT. PO MEDS TAKEN IN APPLESAUCE WITHOUT DIFFICULTY. DENIES NAUSEA, DYPSNEA OR PAIN. VSS. LEFT ARM REMAINS FLACCID, LEFT LEG WEAK. HAS APPEARED TO BE SLEEPING WHEN CHECKED ON HOURLY ROUNDS. FALL PRECAUTIONS IN PLACE.
[2018-05-11 06:48] LABS: ABSOLUTE NEUTROPHILS 6.5 thou/uL (1.4-8.2); BASOPHILS 0.8 % (0.0-2.0); EOSINOPHILS 0.8 % (0.0-3.0); HEMATOCRIT 37.6 % (42.0-52.0); HEMOGLOBIN 12.8 gm/dL (14.0-18.0); LYMPHOCYTES 13.5 % (24.0-44.0); MCH 29.8 pg (26.0-34.0); MCHC 34.1 g/dL (28.0-37.0); MCV 87.5 fL (80.0-100.0); MONOCYTES 5.5 % (1.0-8.0); PLATELET COUNT 281 thou/uL (150-400); POLYS 79.4 % (36.0-66.0); RDW 13.4 % (10.5-14.5); WBC 8.2 thou/uL (4.0-11.0)
[2018-05-11 07:09] LABS: CALCIUM 8.7 mg/dL (8.5-10.1); CREATININE 0.9 mg/dL (0.7-1.3); MAGNESIUM 2.1 mg/dL (1.8-2.4); POTASSIUM 3.7 mmol/L (3.5-5.1)
--- NOTE | 2018-05-11 10:17 | NUR ---
ASSUMED CARE AT 0715. PATIENT ALERT AND ORIENTED X4. FORGETFUL AT TIME. PATIENT HAS LEFT SIDED FLACCIDIITY. LEFT LEG WEAKNESS. REPORTS SLEPT GOOD. LUNGS ARE CLEAR. ABD IS SOFT WTH BSX4. LAST BM WAS YESTERDAY. DAUGHTER REQUESTS TO HOLD LAXATIVE TODAY. INCONTINENT OF URINE, OFFER TOILETING FREQUENTLY. PT USES URINAL AT TIME. PATIENT IS ALSO UP TO THE BATHROOM WITH ASSIST OF 2. ATE 100% BREAKFAST. PT CONTINUE TO BE HONEY THICK LIQUID. FAMILY WITH PT MOST OF THE TIME. OFFERED SUPPORTIVE CARE TO PT AND FAMILY. MEDS GIVEN WITH APPLE SAUCE. REASSESSMENT PER CHART. LABS REVIEWED. VSS ON RA. NICOTINE PATCH APPLIED. PT SAID NICOTINE PATCH HELPS HIM SLEEP BETTER. PT IS ON LOW AIR MATRESS, ENCOURGE FAMILY TO TURN PT Q2HRS WHILE IN BED. FALL AND SAFETY PROTOCOLS IN PLACE. DENIES ANY PAIN AT THIS TIME. CONTINUES TO PROGRESS SLOWLY TOWARDS D/C GOALS.
[2018-05-11 19:48] VITALS: BP 147/73
--- NOTE | 2018-05-12 04:57 | NUR ---
PATIIENTS CARES WERE ASSUMED AT SHIFT CHANGE. PATIENT WAS ASSESSED AND MEDS WERE PASSED. HOURLY ROUNDS WERE DONE AND PATIENT DID APPER TO BE SLEEPING NO COMPLAINTS OR REQUEST WERE MADE. THE BED ALARM IS ON AND THE BED IS IN A LOW AND LOCKED POSITION,
[2018-05-12 09:53] VITALS: BP 161/69
--- NOTE | 2018-05-12 09:59 | NUR ---
ericka reached out to daughter rt having question about va dme needs " his dr is dr matias in [place], was told his va dr needs to order his equip"/daughter levi. ericka passed on that va called and stated that dme should be sent over with weekly updates and they would start working on his equip for dc. " ok thank you for already starting this"/daughter. will cont following as needed for dc needs.
--- NOTE | 2018-05-12 14:33 | NUR ---
ASSUMED CARE AT 0715. OT GAVE PT BATH THIS AM. C/O LEFT SHOULDER PAIN. PRN TYLENOL GIVEN. TOLERATED WELL WITH THERAPY. VSS ON RA. MORNING MEDS GIVEN WITH APPLE SAUCE. PATIENT ALERT AND ORIENTED X4. FORGETFUL AT TIME. PATIENT HAS LEFT SIDED FLACCIDIITY. LEFT LEG WEAKNESS. REPORTS SLEPT GOOD. LUNGS ARE CLEAR. ABD IS SOFT WTH BSX4. LAST BM WAS 2 DAYS AGO. GAVE COLACE SCHEDULED, WILL GIVE LAXATIVE LATER AFTER THERAPY. CONTINENT OF URINE, HAS STRESS INCONT AT TIME. OFFER TOILETING FREQUENTLY. PATIENT IS ALSO UP TO THE BATHROOM WITH ASSIST MAX ASSIST. ST CONTINUE TO WORK ON VITAL STEM AT BREAKFAST CONTINUE TO BE HONEY THICK LIQUID. PT UP TO DINNING FOR MEALS. FAMILY WITH PT MOST OF THE TIME. OFFERED SUPPORTIVE CARE TO PT AND FAMILY. MEDS GIVEN WITH APPLE SAUCE. REASSESSMENT PER CHART. LABS REVIEWED. VSS ON RA. NICOTINE PATCH APPLIED. FALL AND SAFETY PROTOCOLS IN PLACE. CONTINUES TO PROGRESS SLOWLY TOWARDS D/C GOALS. WILL CONTINUE TO MONITOR.
[2018-05-12 19:58] VITALS: BP 148/48
--- NOTE | 2018-05-13 02:49 | NUR ---
ASSUMED CARE OF PATIENT AROUND 1900. PATIENT DENIES PAIN. TOOK PO MEDICATIONS WITHOUT DIFFICULTY. AND DAUGHTER AT BEDSIDE, ASSIST WITH TURNS THROUGHOUT THE NIGHT. PATIENT ABLE TO REST THROUGH MAJORITY OF SHIFT. PROGRESSING SLOWLY TOWARD GOALS, WILL CONTINUE TO MONITOR.
--- NOTE | 2018-05-13 08:54 | NUR ---
ASSUMED CARE AT 0700. PATIENT IS ALERT AND ORIENTED X4. PATIENT HAS LEFT SIDED WEAKNESS AND LEFT ARM FLACCIDITY. PATIENT HAS EXPRESSIVE APHASIA. LUNGS ARE CLEAR. ABD IS SOFT WITH BSX4. NO EDEMA NOTED IN HIS LOWER EXTREMITIES. FALL AND SAFETY PROTOCOLS IN PLACE. DENIES ANY PAIN. UP TO THE BATHROOM IN W/C FAMILY AT [facility]. NO SKIN ISSURES AT THIS TIME. UP WITH ASSIST OF 2 FOR TRANSFERS TO W/C. CONTINUES TO PROGRESS SLOWLY TOWARDS D/C GOALS. WILL CONTINUE TO MONITER.
[2018-05-13 09:11] VITALS: BP 157/67
--- NOTE | 2018-05-14 02:04 | NUR ---
Assumed care of pt at 1900. Pt alert and oriented x4. Left sided weakness. Q2h turn. Family at bedside. Helps with turns and transferring of pt. Pt requests tylenol at hs for chronic shoulder and back pain. Pain relief achieved. Pills given whole in apple sauce. No complaints at this time. Will continue to monitor and assist with needs.
[2018-05-14 08:30] VITALS: BP 161/67
--- NOTE | 2018-05-14 19:22 | NUR ---
ASSUMED CARE OF PT AT 0715. PT IS A&OX4. IS ON ROOM AIR. REPORTS CHRONIC BACK & SHOULDER PAIN FROM FALL YEARS AGO. IS STABLE. IS UP WITH MAX ASSIST X 2 GB, WALKER. FALL PRECAUTIONS & HOURLY ROUNDING MAINTAINED. PT HAS RIGHT SIDED WEAKNESS. FAMILY AT BEDSIDE. LABS & VITALS REVIEWED. CALL LIGHT WITHIN REACH. WILL CONTINUE TO MONITOR.
[2018-05-14 19:57] VITALS: BP 135/53
--- NOTE | 2018-05-14 23:40 | NUR ---
PT ASSESSMENT COMPLETED AND VSS. MEDS GIVEN ORDERED AND WELL TOLERATED. SUPPORTIVE FAMILY AT BEDSIDE. VOIDING PER URINAL. PRN TYLNOL HELPFUL FOR BACK PAIN. SLEEPING WELL. WILL CONTINUE TO MONITOR FREQUENTLY.
--- NOTE | 2018-05-15 14:13 | NUR ---
ASSUME PT CARE AT 0715. VSS ON RA. MORNING MEDS GIVEN. C/O LEFT SHOULDER AND BACK PAIN. RATES PAIN 5/10, GAVE PRN TYLNELOL 2X. ROMERO OR MELIDA WILL GIVE ORDER FOR VOLARENE GEL. RESSESSESSMENT PER CHART. LAST BM WAS 2 DAYS AGO. COLACE GIVE. DAUGHTER REQUESTS TO CHANGE MIRALAX TO PRN. DAUGHTER REPORTS PT HAS STREAK OF BLOOD IN URINE YESTERDAY. REQUESTS TO RECHECK UA. LAST UA WAS Apr. OFFERED SUPPORTIVE CARE. ENCOURAGE PT TO VOICE HIS NEEDS. PT HAS BEEN UP FOR THERAPY, CONT BLADDER AND REQUESTS FOR BATHROOM. WEARS BRIEFS, HAS STRESS INCONT WHEN NOT ABLE TO GET TO BATHROOM ON TIME. OFFERED SUPPORTIVE CARE. UP WITH MAX ASSIST WITH TRANSFER. HAS GOOD APPETITE. FAMILY AT BEDSIDE. FALL PRECAUTION IN PLACE. WILL CONTINUE TO MONITOR.
[2018-05-15 14:25] VITALS: BP 128/74
[2018-05-15 15:20] LABS: URINE BILIRUBIN NEGATIVE (Negative); URINE BLOOD 3+ (Negative); URINE CLARITY CLOUDY; URINE COLOR YELLOW; URINE GLUCOSE-RANDOM* NEGATIVE (Negative); URINE KETONES NEGATIVE (Negative); URINE NITRITE-REFLEX POSITIVE (Negative); URINE PROTEIN (DIPSTICK) TRACE (Negative); URINE SPECIFIC GRAVITY >= 1.030 (1.005-1.035)
[2018-05-15 15:21] LABS: URINE LEUKOCYTES-REFLEX 2+ (Negative)
[2018-05-15 15:27] LABS: AMORPHOUS URATES Moderate /LPF (None Seen); CASTS None Seen /LPF (None Seen); MUCUS 4-6 Moderate strn/LPF (None Seen); SQUAMOUS None Seen /LPF (0-3); URINE RBC >20 Many /HPF (0-2); URINE WBC-REFLEX >25 Many /HPF (0-5); WBC CLUMPS Moderate (None Seen)
[2018-05-15 19:20] VITALS: BP 142/86
[2018-05-16 04:05] LABS: CALCIUM 8.7 mg/dL (8.5-10.1); CREATININE 0.9 mg/dL (0.7-1.3); MAGNESIUM 1.9 mg/dL (1.8-2.4); POTASSIUM 3.6 mmol/L (3.5-5.1)
[2018-05-16 04:15] LABS: ABSOLUTE NEUTROPHILS 4.2 thou/uL (1.4-8.2); EOSINOPHILS 1.7 % (0.0-3.0); HEMATOCRIT 36.7 % (42.0-52.0); HEMOGLOBIN 13.1 gm/dL (14.0-18.0); LYMPHOCYTES 20.6 % (24.0-44.0); MCH 30.1 pg (26.0-34.0); MCHC 35.7 g/dL (28.0-37.0); MCV 84.2 fL (80.0-100.0); MONOCYTES 6.7 % (1.0-8.0); PLATELET COUNT 281 thou/uL (150-400); RBC 4.36 mil/uL (4.50-6.00); RDW 13.2 % (10.5-14.5)
--- NOTE | 2018-05-16 05:19 | NUR ---
ASSUMED CARE OF PT AT 1915. PT ALERT AND ORIENTED X4, CALM AND COOPERATIVE. PT HAS BEEN INCONT OF URINE, VOIDED IN URINAL WELL. PT'S AND DAUGHTER HAVE BEEN AT BEDSIDE THROUGH THE NIGHT. C/O MILD PAIN IN LEFT SHOULDER, RELIEVED WITH VOLTAREN GEL. DENIES PAIN OR NAUSEA. PT HAS APPEARED TO BE SLEEPING WHEN CHECKED ON HOURLY ROUNDS. FALL PRECAUTIONS IN PLACE. MORNING LABS NOTED.
[2018-05-16 08:00] VITALS: BP 147/80
--- NOTE | 2018-05-16 09:56 | PLAN ---
[facility] [place] [address] REHAB UNIT PLAN OF CARE Name: FLACO SINGH Room #: 504-2 ADM IN M.R.#: [id number] Admission: 05/02/18 Attend Phys: Ulysses Khalil MD Discharge: Date of : 38 Report #: [id number] THIS REPORT FOR: //name// CC: Ulysses Crowley DATE OF SERVICE: 05/05/2018 SUBJECTIVE: The patient was seen back today. He has had some shoulder discomfort which is not new with his ongoing left shoulder problems and has been treated with tramadol. He has been working in therapies with continuing the pureed diet with honey thickened liquids. He is max assist with bed to wheelchair transfers. He is unable to ambulate. He is dependent for lower body dressing. He has a tendency to lean to the left. ASSESSMENT: 1. Nondominant hemispheric right-sided cerebrovascular accident. 2. Dense left hemiplegia. 3. Left-sided facial weakness. 4. Dysphagia, on pureed with honey thickened liquid. 5. 50% internal carotid artery stenosis on the left. 6. Status post TPA. 7. History of coronary artery disease status post stenting. 8. Tobacco abuse. 9. Hypertension. 10. Hyperlipidemia. 11. Prior history of left shoulder remote fracture with decreased range of motion. PLAN: The overall plan of care is based on the preadmission screen, post-admission physician evaluation and information garnered from therapy assessments. 1. Estimated length of stay is probably at least 3 weeks. 2. Medical prognosis is reasonably good. 3. Anticipated interventions includes the interdisciplinary acute inpatient rehabilitation program with PT and OT and speech, rehabilitation nursing assisting regarding medication management, skin care prophylaxis, bowel and bladder issues and nursing education. 4. Anticipated functional outcome would be for him to ideally become more independent at the wheelchair level and to work on maximizing his independence and to do family training so he can return back to the home setting. 5. Discharge destination would be to stay with daughter and son-in-law. 6. Expected therapy by discipline includes PT, OT and speech 1 hour per day [facility] [address] [place] [address] REHAB UNIT PLAN OF CARE Name: FLACO SINGH Room #: 504-2 ADM IN M.R.#: [id number] Admission: 05/02/18 Attend Phys: Ulysses Khalil MD Discharge: Date of : 38 Report #: [id number] each five days a week throughout the duration of the acute inpatient rehabilitation program. <ELECTRONICALLY SIGNED> By: Ulysses Khalil MD 05/16/18 [id number] Ulysses Khalil MD /nt
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
--- NOTE | 2018-05-16 10:04 | NUR ---
ASSUME PT CARE AT 0715. REPORTS SLEPT GOOD. VSS ON RA. MORNING MEDS GIVEN. C/O LEFT SHOULDER AND BACK PAIN. GAVE PRN TYLNELOL 2X. OT GAVE SPONGE BATH. VOLTAREN APPLIED. NICOTINE PATCH APPLIED ON THE BACK. RESSESSESSMENT PER CHART. HAD BM THIS AM. CONTINUE TO BE ON CIPRO FOR UTI. NO ADVERSE REACTION NOTED. PT HAS BEEN UP FOR THERAPY, CONT BLADDER AND REQUESTS FOR BATHROOM. WEARS BRIEFS, HAS STRESS INCONT WHEN NOT ABLE TO GET TO BATHROOM ON TIME. OFFERED SUPPORTIVE CARE. UP WITH MAX ASSIST WITH TRANSFER. CONTINUE TO BE ON HONEY THICK CONTINUE TO WORK WITH ST ON [employer] STEM. ON MECH SOFT DIET. EATS BETTER. HAS GOOD APPETITE. MEDS GIVEN WITH APPLE SAUCE. FAMILY AT BEDSIDE. CONTINUE TO BE ON TURN 2 HR REINFORECED. PT UP TO BATHROOM OR WORKING THERAPY ALL DAY LONG. FALL PRECAUTION IN PLACE. WILL CONTINUE TO MONITOR.
--- NOTE | 2018-05-16 12:44 | NUR ---
team meeting reccomendation : jett 05/26/18, hh ( pt, ot, st with [facility], nursing), and dme.
--- NOTE | 2018-05-16 13:42 | NUR ---
Nutrition followup: pt continues to eat well, 75-100% of meals documented. Continues with ST therapy. Will continue same supplement regimen. New weight has been requested. Low risk.
--- NOTE | 2018-05-16 14:17 | NUR ---
ASSUME PT CARE AT 0715. REPORTS SLEPT GOOD. VSS ON RA. MORNING MEDS GIVEN. C/O LEFT SHOULDER AND BACK PAIN. GAVE PRN TYLNELOL. OT GAVE SPONGE BATH. VOLTAREN APPLIED. NICOTINE PATCH APPLIED ON THE BACK. RESSESSESSMENT PER CHART. HAD 3X BM THIS AM. CONTINUE TO BE ON CIPRO FOR UTI. NO ADVERSE REACTION NOTED. CALLED AND OBTAINED PROBIOTIC ORDER TO PREVENT C-DIFF PT HAS BEEN UP FOR THERAPY, CONT BLADDER AND REQUESTS FOR BATHROOM. WEARS BRIEFS, HAS STRESS INCONT WHEN NOT ABLE TO GET TO BATHROOM ON TIME. OFFERED SUPPORTIVE CARE. UP WITH MAX ASSIST WITH TRANSFER. CONTINUE TO BE ON HONEY THICK CONTINUE TO WORK WITH ST ON [employer]. ON MECH SOFT DIET. EATS BETTER. HAS GOOD APPETITE. MEDS GIVEN WITH APPLE SAUCE. FAMILY AT BEDSIDE. CONTINUE TO BE ON TURN 2 HR REINFORECED. PT UP TO BATHROOM OR WORKING THERAPY ALL DAY LONG. RESTING IN BED AT THIS MOMENT. FALL PRECAUTION IN PLACE. WILL CONTINUE TO MONITOR.
[2018-05-16 19:09] VITALS: BP 149/61
--- NOTE | 2018-05-17 03:26 | NUR ---
ASSUMED CARE OF PT AT 1915. PT ALERT AND ORIENTED X4, CALM AND COOPERATIVE. PT DENIES PAIN, NAUSEA OR DYPSNEA. ASSESSMENT COMPLETED. PT'S FAMILY AT BEDSIDE, REPOSITIONS PT Q 2 HRS. SKIN INTACT. HAS APPEARED TO BE SLEEPING WHEN CHECKED ON HOURLY ROUNDS.
[2018-05-17 10:25] VITALS: BP 136/62
--- NOTE | 2018-05-17 11:29 | NUR ---
ASSUMED CARE AT APPROX 0715. PATIENT A/O X4. C/O PAIN IN LEFT BACK AND SHOULDER. TYLENOL ADMINISTERED, VOLTAREN GEL APPLIED AFTER SHOWER. ALSO C/O KNEE DISCOMFORT, STATED HE DID NOT WANT VOLTAREN GEL APPLIED THERE. PATIENT REPOSITIONED Q2H PER ORDERS. FALL PRECAUTIONS IN PLACE. PATIENT UP IN WC BETWEEN THERAPISTS PER HIS REQUEST. LISINOPRIL GIVEN PER PARAMETERS THIS DATE, PT EDUCATED ON BP MEDS/PARAMETERS. PT DENIES HAVING HAD LOOSE STOOLS, PROBIOTIC GIVEN THIS DATE. ROUNDED ON HOURLY. WILL CONTINUE TO MONITOR.
--- NOTE | 2018-05-17 14:43 | NUR ---
Patient participated in community reintegration on 05/17/18 with Physical Therapy. Refer to documentation by PT.
[2018-05-17 20:37] VITALS: BP 135/73
--- NOTE | 2018-05-18 01:53 | NUR ---
ASSUMED CARE OF PT AT 1915. PT ALERT AND ORIENTED X4, CALM AND COOPERATIVE. C/O RIGHT KNEE PAIN, VOLTAREN GEL APPLIED AND PO TYLENOL GIVEN. ASSESSMENT COMPLETED. PT'S FAMILY AT BEDSIDE, PT'S DAUGHTER RE-POSITIONING PT Q 2HRS. PT VOIDED INTO URINAL X1, HAS BEEN INCONT WELL. DENIES NAUSEA OR DYPSNEA. SKIN INTACT. HAS APPEARED TO BE SLEEPING WHEN CHECKED ON HOURLY ROUNDS. FALL PRECAUTTIONS IN PLACE.
[2018-05-18 07:45] VITALS: BP 153/63
--- NOTE | 2018-05-18 20:18 | NUR ---
ASSUMED PT CARE AT 0700H. PT A&O X4. PT HAS NO S/S OF DISTRESS. PT FAMILY AT BEDSIDE. CONCERN OF DECREASING NICOTINE DOSE. HEALTH CARE PROVIDER NOTIFIED. NEW ORDERS RECEIVED AND ACKNOWLEDGED. PT PARTICIPATES WITH THERAPY. PT ABLE TO TRANSFER FROM BED TO CHAIR. PT USES WHEELCHAIR AND WALKER. PT WEAK ON L SIDE. PT L AFO BROUGHT THIS EVENING. PT TOLERATES MEDS WITH APPLE SAUCE. PT CALL LIGHT WITHIN REACH AND CONT TO BE MONITORED FOR SAFETY.
[2018-05-18 20:21] VITALS: BP 175/78
--- NOTE | 2018-05-19 06:02 | NUR ---
APPRECIATED TYLENOL AT HS AND DECLINES OFFER OF VOLTAREN TO KNEES AT THIS TIME. TURNED BY STAFF AND FAMILY. USING URINAL MOSTLY WITH SUCCESS. WAS ABLE TO SWALLOW MEDS WITH APPLESAUCE AND IS DELIBERATELY USING TONGUE TO PUSH LARGER PILLS TO THE RIGHT SIDE OF HIS NOUTH
--- NOTE | 2018-05-19 07:47 | NUR ---
ASSUME PT CARE AT 0700. POPEYE SCALE IS 17 AT THIS MOMENT. D/C PT FROM TURN Q2 PROTOCOL. PT ABLE TO UP FREQUENTLY TO BATHROOM. MOVING WITHOUT DIFFICULTY. SBA WITH GB AND WALKING STICK. PT IS UP WITH PHYSICAL THERAPIST AT THIS MOMENT. REPORT SLEPT GOOD. WILL CONTINUE TO MONITOR.
[2018-05-19 07:50] VITALS: BP 177/78
--- NOTE | 2018-05-19 07:55 | NUR ---
ASSUME PT CARE AT 0700. B/P WAS 175/78 LAST NIGHT. PT IS CURRENTLY ON LISINOPRIL 2.5MG DAILY. CALLED ROMERO AND REQUESTED IF PT CAN BE ON LISINOPRIL 5MG DAILY SINCE B/P HAS BEEN HIGH. RECEIVED ORDER TO GIVE HYDRALIZE 10MG ONCE NOW AND SHE WILL COME TO ADJUST PT'S HYPERTENSIVE MED LATER. WILL GIVE HYDRALIZINE AND WILL CONTINUE TO MONITOR B/P.
[2018-05-19 08:00] VITALS: BP 177/78
[2018-05-19 09:00] VITALS: BP 164/81
[2018-05-19 17:00] VITALS: BP 131/51
[2018-05-19 19:49] VITALS: BP 142/56
--- NOTE | 2018-05-20 02:30 | NUR ---
TURNED SIDE TO SIDE WITH ASSIST OF HIS DAUGHTER. UP TO BATHROOM WITH STAND-PIVOT TO THEN TO TOILET AT HS. VOLTAREN GEL TO RIGHT SHOULDER AND LEFT KNEE TO HELP WITH CHRONIC PAIN WELL TYLENOL AT HS IS APPRECIATED.
[2018-05-20 07:45] VITALS: BP 142/58
--- NOTE | 2018-05-20 10:14 | NUR ---
ASSUMED Care AT 0700. PATIENT IS ALERT AND ORIENTED X4. PATIENT HAS LEFT SIDED WEAKNESS IN LEFT LOWER EXTREMITY. PATIENT LEFT ARM IS FLACCID. PATIENT HAS SOME EXPRESSIVE APHAGIA, BUT THIS IS IMPROVING. LUNGS ARE CLEAR AND DEMINISHED. ABD IS SOFT WITH BSX4. FALL AND SAFETY PROTOCOLS IN PLACE. DENIES ANY PAIN AT THIS TIME. CONTINUES TO PROGRESS SLOWLY TOWARDS D/C GOALS. UP IN CHAIR FOR MEALS. WILL CONTINUE TO MONITER.
[2018-05-20 19:07] VITALS: BP 143/61
--- NOTE | 2018-05-21 01:46 | NUR ---
RESTING WELL AFTER TYLENOL, TRAZADONE, AND MELATONIN AT HS. TURNED TO SIDE WITH ASSIST OF FAMILY WHO ARE STAYING OVERNIGHT.
[2018-05-21 07:20] VITALS: BP 143/78
--- NOTE | 2018-05-21 14:42 | NUR ---
ASSUMED CARE AT APPROX 0715. PATIENT A/O X4. C/O LEFT SHOULDER PAIN, PRN PAIN MEDS ADMINISTERED, VOLTAREN GEL APPLIED TO LEFT SHOULDER AND RIGHT KNEE. VSS. UP X1 MAX ASSIST. PARTICIPATED IN THERAPY. LEFT AFO BOOT IN PLACE FOR PT. PATIENT UP IN WC FOR MEALS. FALL PRECAUTIONS IN PLACE. FAMILY AT BEDSIDE. WILL CONTINUE TO MONITOR.
[2018-05-21 20:40] VITALS: BP 177/68
--- NOTE | 2018-05-22 00:13 | NUR ---
PT ASSESSMENT COMPLETED AND VSS. MEDS GIVEN ORDERED AND WELL TOLERATED. FALL PRECAUTIONS IN PLACE. SUPPORTIVE FAMILY AT BEDSIDE. SLEEPING WELL. VOIDING MODERATE AMOUNT PER URINAL. WILL CONTINUE TO MONITOR FREQUENTLY.
[2018-05-22 07:45] VITALS: BP 148/76
--- NOTE | 2018-05-22 10:45 | NUR ---
ASSUMED CARE AT APPROX 0715. PATIENT A/O X4. REPORTS SLEPT GOOD LAST NIGHT. HAS LEFT SHOULDER PAIN, AND KNEE PAINS MODERATE. RATES PAIN 5/10. PRN TYLENOL GIVEN. VOLTAREN GEL APPLIED TO LEFT SHOULDER AND RIGHT KNEE. VSS. UP X1 MAX ASSIST. MORNING MEDS GIVEN. NOTED B/P WAS HIGH LAST NIGHT. PT DOESN'T PRN HYPERTENSIVE. NOTIFIED ROMERO ABOUT ELEVATED B/P AT NIGHT AND THAT PT FINISHED WITH CIPRO FOR UTI, DAUGHTER WANTS TO RECHECK UA. ROMERO SAID NO NEED TO CHECK UA AT THIS POINT AND NO NEED OF HYPERTENSIVE PRN MED AT THIS MOMENT. WILL ASK NIGHT NURSE CONTINUE TO MONITOR B/P AT NIGHT PARTICIPATED IN THERAPY. LEFT AFO BOOT IN PLACE FOR PT. PATIENT UP IN WC, PHYSICAL THERAPIST IS WORKING WITH PT AT THIS MOMENT. FALL PRECAUTIONS IN PLACE. FAMILY AT BEDSIDE. WILL CONTINUE TO MONITOR.
[2018-05-22 19:28] VITALS: BP 149/83
[2018-05-22 19:34] LABS: URINE BILIRUBIN NEGATIVE (Negative); URINE BLOOD 1+ (Negative); URINE CLARITY CLEAR; URINE COLOR YELLOW; URINE GLUCOSE-RANDOM* NEGATIVE (Negative); URINE KETONES NEGATIVE (Negative); URINE LEUKOCYTES-REFLEX TRACE (Negative); URINE NITRITE-REFLEX NEGATIVE (Negative); URINE PROTEIN (DIPSTICK) NEGATIVE (Negative); URINE UROBILINOGEN 0.2 E.U./dl (0.2-1.0)
[2018-05-22 19:45] LABS: BACTERIA-REFLEX None Seen /HPF (None Seen); CASTS None Seen /LPF (None Seen); CRYSTALS None Seen /LPF (None Seen); SQUAMOUS 0-3 Few /LPF (0-3); URINE WBC-REFLEX 0-5 Rare /HPF (0-5)
--- NOTE | 2018-05-23 00:03 | NUR ---
PT ASSESSMENT COMPLETED AND VSS. MEDS GIVEN ORDERED AND WELL TOLERATED. SUPPORTIVE FAMILY AT BEDSIDE. PRN TYLENOL HELPFUL FOR L SHOULDER PAIN. VOIDING PER URINAL. SLEEPING WELL. WILL CONTINUE TO MONITOR FREQUENTLY.
[2018-05-23 05:07] LABS: CALCIUM 9.1 mg/dL (8.5-10.1); CREATININE 0.9 mg/dL (0.7-1.3); POTASSIUM 3.8 mmol/L (3.5-5.1)
[2018-05-23 05:08] LABS: ABSOLUTE NEUTROPHILS 4.1 thou/uL (1.4-8.2); BASOPHILS 0.9 % (0.0-2.0); EOSINOPHILS 2.9 % (0.0-3.0); HEMATOCRIT 36.4 % (42.0-52.0); HEMOGLOBIN 12.5 gm/dL (14.0-18.0); LYMPHOCYTES 19.1 % (24.0-44.0); MCHC 34.3 g/dL (28.0-37.0); MCV 87.3 fL (80.0-100.0); MONOCYTES 7.2 % (1.0-8.0); PLATELET COUNT 216 thou/uL (150-400); POLYS 69.9 % (36.0-66.0); RBC 4.17 mil/uL (4.50-6.00); RDW 13.8 % (10.5-14.5); WBC 5.9 thou/uL (4.0-11.0)
[2018-05-23 06:20] VITALS: BP 142/62
--- NOTE | 2018-05-23 11:51 | NUR ---
ASSUMED CARE AT APPROX 0715. PATIENT A/O X4. REPORTS SLEPT GOOD LAST NIGHT. MORNING MEDS GIVEN. VSS ON RA. LEFT AFO BOOT IN PLACE FOR PT. PATIENT UP IN WC, PHYSICAL THERAPIST IS WORKING WITH PT AT THIS MOMENT. DAUGHTER IS WITH PT. FALL PRECAUTIONS IN PLACE. WILL CONTINUE TO MONITOR.
--- NOTE | 2018-05-23 13:16 | NUR ---
Nutrition followup: pt continues to eat very well, 75-100% of meals. ST continues to follow pt and conducting vital stim. Continues to requires modified solids/liquids. Still enjoys ensure pudding BID. Last weight taken on 05/02 down 4# from reported UBW. Continue to request new weight. Family/pt voice no questions/concerns to RD. Continue low nutrition risk.
--- NOTE | 2018-05-23 13:38 | NUR ---
team meeting, recommendation: dc 15 home to [facility] homes, with [facility] daughter and pt to [facility] (pt, ot, st with [facility], nursing). then possible transition to possible ability [place] day program.
--- NOTE | 2018-05-23 16:08 | NUR ---
DISCHARGE PLANNING: CLINICAL REVIEW WITH REQUEST FOR ADDITIONAL DAYS WAS FAXED AND CALLED TO ADELIA AT THE [facility]. PER ADELIA, THE ORDERS FOR DME THAT WERE SEND 2 WEEKS AGO AND LAST WEEK WERE SENT TO THE PATIENT'S PCP DR. KWASI BROWN, AND I WAS GIVEN A PHONE NUMBER TO CALL LILIANA LEIVA RN FOR DR. BROWN TO FIND OUT WHERE THEY ARE AT IN THE PROCESS OF ORDERING THIS EQUIPMENT. I CALLED [phone] EXT [phone]. THERE WAS NO ANSWER, AND A VOICEMAIL WAS LEFT WITH OUR REQUEST FOR A CALL-BACK SOON POSSIBLE. PER ADELIA, THE EQUIPMENT HAD BEEN ORDERED, BUT SHE WAS NOT ABLE TO GIVE ANY DETAILS. WILL AWAIT CALL BACK FROM [place].
[2018-05-23 19:27] VITALS: BP 149/77
--- NOTE | 2018-05-24 04:25 | NUR ---
ASSESSMENT: PT REMAIN ALERT AND ORIENT TIMES FOUR. LEFT SIDE WEAKNESS, PT IS BEING TURNED EVERY TWO HOURS. INCONTINENT TO URINE TIMES ONE. FAMILY MEMBER AT THE BEDSIDE. PT DENIES PAIN AT THIS TIME. POSSIBLE DC TO HOME TUESDAY WITH DAUGHTER. REFUSED EARLIER APPLICATION OF DICLOFENAC GEL. WILL TRY TO APPLY TO LEFT SHOULDER THIS AM. SAFETY MAINTAINED, VSS, AFEBRILE. SLOW PROGRESS TOWARDS DC GOALS, WILL CONTINUE TO MONITOR.
[2018-05-24 08:39] VITALS: BP 153/75
--- NOTE | 2018-05-24 09:45 | NUR ---
cm visited with pt and daughter rt [facility] not able to do ot at this time rt location. pt going to dc to [facility] [address], [place] [address]. referral sent to [facility] is able to accept at dc. cm called left another message with anya or driss at [facility], to check on status of dme equip and when it will be delivered to daughter home for dc on , was told by [facility] ethylene oxide panelboard operator that anya and driss not in today. cm explained the need to speak with someone and the importance of have equip set to ensure does not delay dc on , ethylene oxide panelboard operator took cm number again. will cont following as needed for dc needs. cm provided senior blue book with daughter and referral sent to [facility] [place]
--- NOTE | 2018-05-24 10:05 | NUR ---
FAXED REFERRAL TO [facility] AND THEY DO NOT HAVE OT IN PT'S AREA. DCP TO FOLLOW.
--- NOTE | 2018-05-24 11:31 | NUR ---
ASSUMED CARE OF PT AT 0715. PT IS A&OX4, WITH SLURRED SPEECH, BUT IS ABLE TO BE UNDERSTOOD. IS ON ROOM AIR. DENIES PAIN. IS UP WITH 1 ASSIST, GB, WALKER STAND PIVOT TO W/C. HAS LEFT SIDED WEAKNESS. FALL PRECAUTIONS & HOURLY ROUNDING MAINTAINED. IS STABLE. DAUGHTER AT BEDSIDE. LABS & VITALS REVIEWED. PT HAS ORTHO DEVICE FOR LEFT SHOE. PT IS CONCERNED ABOUT SPOUSE WHO WAS DISCHARGED TODAY FROM 4W. WOULD LIKE TO SPEAK WITH NURSE THAT TOOK CARE OF SPOUSE. THIS NURSE CALLED & LEFT MESSAGE TO RETURN CALL WHEN NURSE IS AVAILABLE. PT IS CURRENTLY UP IN W/C WITH TABLE TOP. DAUGHTER AT SIDE. CALL LIGHT WITHIN REACH. WILL CONTINUE TO MONITOR.
--- NOTE | 2018-05-24 11:40 | NUR ---
FAXED REFERRAL TO [facility] SPOKE WITH LALIT IN ADM. AND THEY CAN ACCEPT PT. AT DISCHARGE. PT. IS GOING TO DTR'S RESIDENCE AT [address] [facility] [id number]. [place] TO START VISITS ON 05/27 AND WILL NOTIFY PT. OF TIME OF VISITS. PT. DISCHARGING ON 05/26 DCP TO FOLLOW.
--- NOTE | 2018-05-24 14:54 | NUR ---
I have reviewed the documentation by VIC Horta 05/24/18 and I concur with it. RICK DIAZ A
--- NOTE | 2018-05-24 16:10 | NUR ---
DISCHARGE PLANNING: OR HAS APPROVED ALL DME REQUESTED. BSC AND TUB TRANSFER BENCH WILL BE DELIVERED. [facility] WILL CALL THE PATIENT'S FAMLY TO ARRANGE DELIVERY. (PT'S DTR GABE STATED THAT SHE ALREADY GOT A CALL FROM THEM). THE WHEELCHAIR WILL BE DELIVERED TO [facility] PRIOR TO DISCHARGE, AND MAY ARRIVE EARLY TOMORROW. PER TRANSFER CENTER RN, PT IS ALLOWED TO USE ANY HOMEHEALTH AGENCY THAT IS COVERED BY HIS MEDICARE BENEFIT. WILL CONVEY ALL INFORMTATION TO THE PT/FAMILY, AND CM RN.
[2018-05-24 19:20] VITALS: BP 144/44
--- NOTE | 2018-05-25 02:43 | NUR ---
ASSUMED CARE FROM PREVIOUS SHIFT PT RESTED WELL THROUGHOUT HOURLY ROUNDS NO CONCERNS VOICED , FAMILY REMAINS AT BEDSIDE, PT TURNED EVERY 2 HOURS. DISCUSSED PLANOFCARE WITH PT AND FAMILY ALL AGREEEABLE , WILL CONITNUE WITH CURRENT PLAN OF CARE.
[2018-05-25] MEDS ORDERED: MELATONIN5 M1 PO (09:11)
[2018-05-25] MEDS ORDERED: ACETAMINOPHEN325 M1 PO (09:11)
[2018-05-25] MEDS ORDERED: ASPIR 8181 MG PO (09:11)
[2018-05-25] MEDS ORDERED: PEPCID20 MG PO (09:11)
[2018-05-25] MEDS ORDERED: LISINOPRIL5 MG PO (09:11)
[2018-05-25] MEDS ORDERED: VOLTAREN GEL 1100 G2 TOP (09:11)
[2018-05-25] MEDS ORDERED: TRAZODONE 150150 M1 PO (09:11)
[2018-05-25] MEDS ORDERED: HYDRALAZINE 10M10 MG PO (09:11)
[2018-05-25] MEDS ORDERED: NICOTINE TRANSD14 M1 TRANSDERM (09:11)
[2018-05-25] MEDS ORDERED: ATORVASTATIN CA40 MG PO (09:11)
[2018-05-25] MEDS ORDERED: COLACE100 MG PO (09:11)
[2018-05-25 09:30] VITALS: BP 152/69
--- NOTE | 2018-05-25 10:48 | NUR ---
pt and daughter possible wanting to dcp today rt possibility of bad winter weather tomorrow. team ok with dc today, if wheel chair delivered today. will not need transportation of dc home today. [facility] is now unable to accept pt for hh, cm spoke with daughter and pt, new referral sent to [facility]. ot left message that therapy had spoken with [facility] rt pt education and training lorena has received here for home dme needs. will cont following as needed for dc needs.
--- NOTE | 2018-05-25 10:49 | NUR ---
NOTIFIED [facility] OF REFERRAL THEY WILL REVIEW PT. DISCHARGING TODAY. DCP TO FOLLOW.
[2018-05-25 12:55] VITALS: BP 138/78
[2018-05-25 14:57] VITALS: BP 138/78
[2018-05-25 15:18] VITALS: BP 138/78
[2018-05-26] MEDS ORDERED: TRAZODONE 150150 M1 PO (10:45)
[2018-05-26] MEDS ORDERED: TRAZODONE HCL100 MG PO (10:45)
--- NOTE | 2018-05-30 17:32 | NUR ---
LATE ENTRY FIM FOR 05/25/18 PER FAMILY AND CHAMBER OF [employer] DIVISION MANAGER REPORT AT 1000: TOILETING CGA STEADYING FIM 4, BLADDER ACCIDENT X 1 AND ASSIST STEADYING FOR MANAGEMENT, BOWEL MGMT 6, NO ACCIDENTS.
--- NOTE | 2018-05-30 17:37 | NUR ---
LATE ENTRY FIM 2/14 AT 1000: TOILET TRANSFER MOD ASSIST TO LIFT OFF FIM 3.
== END 2018-05-25 18:00 | disposition home health service (06) | DRG 62 ==
PROVIDERS: Nurse Practitioner; Nurse Practitioner Family; ADMIT Physical Medicine & Rehabilitation
DX: I63.9 Cerebral infarction, unspecified (principal); E87.0 Hyperosmolality and hypernatremia; N39.0 Urinary tract infection, site not specified; I69.354 Hemiplegia and hemiparesis following cerebral infarction affecting left non-dominant side; R47.1 Dysarthria and anarthria; R13.10 Dysphagia, unspecified; I25.10 Atherosclerotic heart disease of native coronary artery without angina pectoris; I10 Essential (primary) hypertension; E78.5 Hyperlipidemia, unspecified; G47.00 Insomnia, unspecified; J44.9 Chronic obstructive pulmonary disease, unspecified; F43.10 Post-traumatic stress disorder, unspecified; R29.810 Facial weakness; I65.22 Occlusion and stenosis of left carotid artery; E87.6 Hypokalemia; H54.40 Blindness, one eye, unspecified eye; F01.50 Vascular dementia, unspecified severity, without behavioral disturbance, psychotic disturbance, mood disturbance, and anxiety; F10.21 Alcohol dependence, in remission; Z96.641 Presence of right artificial hip joint; F17.210 Nicotine dependence, cigarettes, uncomplicated; Z95.5 Presence of coronary angioplasty implant and graft; Z87.81 Personal history of (healed) traumatic fracture; Z79.82 Long term (current) use of aspirin; Z79.899 Other long term (current) drug therapy; Z82.49 Family history of ischemic heart disease and other diseases of the circulatory system; Z71.6 Tobacco abuse counseling
CPT/HCPCS: 10112

== ENCOUNTER 2018-06-29 12:28 | Inpatient (IN) | payer OTHER ==
[~2018-06-29] VITALS: Ht 172.7 cm; Wt 69.9 kg
[~2018-06-29 12:28] MED LIST changes: +COLACE100 MG PO; +HYDRALAZINE 10M10 MG PO; +LISINOPRIL5 MG PO; +NICOTINE TRANSD14 M1 TRANSDERM; +TRAZODONE HCL100 MG PO; +VOLTAREN GEL 1100 G2 TOP
[2018-06-29 12:39] VITALS: BP 146/71
[2018-06-29 13:23] LABS: ABSOLUTE NEUTROPHILS 13.3 thou/uL (1.4-8.2); BASOPHILS 0.7 % (0.0-2.0); EOSINOPHILS 0.1 % (0.0-3.0); HEMATOCRIT 40.6 % (42.0-52.0); LYMPHOCYTES 6.5 % (24.0-44.0); MCH 30.3 pg (26.0-34.0); MCHC 34.6 g/dL (28.0-37.0); MCV 87.7 fL (80.0-100.0); MONOCYTES 8.9 % (1.0-8.0); PLATELET COUNT 222 thou/uL (150-400); POLYS 83.8 % (36.0-66.0); RBC 4.63 mil/uL (4.50-6.00); RDW 14.1 % (10.5-14.5); WBC 15.8 thou/uL (4.0-11.0)
[2018-06-29 13:30] LABS: CALCIUM 8.9 mg/dL (8.5-10.1); CREATININE 0.8 mg/dL (0.7-1.3); POTASSIUM 3.4 mmol/L (3.5-5.1)
[2018-06-29 13:33] LABS: URINE BILIRUBIN NEGATIVE (Negative); URINE BLOOD TRACE (Negative); URINE CLARITY CLEAR; URINE COLOR YELLOW; URINE GLUCOSE-RANDOM* NEGATIVE (Negative); URINE KETONES NEGATIVE (Negative); URINE LEUKOCYTES-REFLEX NEGATIVE (Negative); URINE NITRITE-REFLEX NEGATIVE (Negative); URINE PROTEIN (DIPSTICK) NEGATIVE (Negative); URINE UROBILINOGEN 0.2 E.U./dl (0.2-1.0)
[2018-06-29 13:36] LABS: ALBUMIN 3.4 g/dL (3.4-5.0); TOTAL PROTEIN 6.9 g/dL (6.4-8.2)
[2018-06-29 15:07] VITALS: BP 143/75
[2018-06-29 15:29] VITALS: BP 153/92
--- NOTE | 2018-06-29 22:09 | NUR ---
Pt placed on inpatient bed. sheets changed. family at bedside
[2018-06-29 22:58] VITALS: BP 139/77
[2018-06-30] VITALS (7 sets, daily range): BP systolic 114–163; BP diastolic 47–860
[2018-06-30 05:57] LABS: ABSOLUTE NEUTROPHILS 10.3 thou/uL (1.4-8.2); BASOPHILS 0.5 % (0.0-2.0); EOSINOPHILS 0.3 % (0.0-3.0); HEMOGLOBIN 13.3 gm/dL (14.0-18.0); LYMPHOCYTES 10.8 % (24.0-44.0); MCH 30.3 pg (26.0-34.0); MCHC 34.1 g/dL (28.0-37.0); MCV 88.8 fL (80.0-100.0); MONOCYTES 9.8 % (1.0-8.0); PLATELET COUNT 191 thou/uL (150-400); POLYS 78.6 % (36.0-66.0); RBC 4.39 mil/uL (4.50-6.00); RDW 14.4 % (10.5-14.5); WBC 13.1 thou/uL (4.0-11.0)
--- NOTE | 2018-06-30 10:20 | NUR ---
Nutrition: assess d/t wound. Pt has abscess on left buttocks, wound care team consult pending. Has started on antibiotics. Pt was admitted several times over past few months. Wt hx shows range of 147-180 lbs since Apr. Pt out of room during attempted visit. Previously had good PO intake, liked Ensure pudding. Will reorder for adequate kcal intake. With nutrition intervention in place, consider low nutrition risk.
--- NOTE | 2018-06-30 14:18 | NUR ---
WOUND CONSULT: PT. WAS SEEN TODAY BY DR. SYED AND MYSELF. PT. HAS A ABCESS TO HIS LEFT BUTTOCK. PT. HAD A BEDSIDE DEBRIDEMENT COMPLETED. PRE MEASURMENTS WERE: 2.0 X 1.0 X 0.0 AND POST WERE: 2.8 X 0.5 X 2.7. PT. TOLERATED PROCEDURE WELL. RECOMMENDATIONS: PACK WITH IODOFOAM PACKING AND COVER WITH BORDERED FOAM PT. AND STAFF NURSE WERE INSTRUCTED ON PLAN OF CARE.
--- NOTE | 2018-06-30 16:44 | NUR ---
ASSESSMENT: CM REVIEWED CHART AND MET WITH PATIENT AND HIS SON AT THE BEDSIDE. PT WAS ADMITTED FOR ABSESS ON BUTTOCKS. PT REPORTS HE LIVES AT HOME WITH DAUGHTER KEVIN (CM CALLED HER AND VERIFIED). SHE IS ABLE TO ASSIST PATIENT WITH HIS NEEDS. PT USES A WHEELCHAIR FOR AMBULATION. PT REPORTS HE IS CURRENTLY IN SERVICES WITH [facility]. CM NOTIFIED [facility] AND PLANS TO RESUME HH AT DISCHARGE. IF PATIENT IS STABLE TO LEAVE OVER THE WEEKEND CALL [facility] [phone] FAX ORDERS/SUMMARY TO FAX [phone]. FAMILY WILL PROVIDE TRANSPORTATION.
--- NOTE | 2018-06-30 20:14 | NUR ---
PATIENT ALERT AND ORIENTED WITH DAUGHTER AT BEDSIDE. DAUGHTER VERY HELPFUL WITH INFORMATION ABOUT PATIENT PATIENT IS SOMETIMES DIFFICULT TO UNDERSTAND, BUT WILL REPEAT HIMSELF. HE IS [place] BUT IS ABLE TO HEAR ENOUGH TO COMMUNICATE. 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 HE IS GETTING AND SELLING HIS HOUSE. PATIENT LIVES WITH DAUGHTER AND SON-IN-LAW.
[2018-07-01 03:30] VITALS: BP 119/66
--- NOTE | 2018-07-01 07:37 | NUR ---
Pt. has slept well during the night in between cares. He has been repositioned for comfort and able to help with verbal cues. Scheduled tylenol given for mild shoulder pain. Bed alarm on. Refused SCD's. Dressing intact on left buttock. Daughter at bedside. Will continue to monitor.
[2018-07-01 08:32] VITALS: BP 128/52
[2018-07-01 18:08] VITALS: BP 178/84
--- NOTE | 2018-07-01 19:25 | NUR ---
PATIENT ALERT AND ORIENTED AND BM TODAY. TRANSFERED TO ROOM 419 TO LARGER ROOM PATIENT DAUGHTER IS ROOMING WITH PATIENT. DRESSING CHANGE WITH MINIMAL SEROSANGINOUS DRAINAGE AND TENDER TO TOUCH. DAUGHTER INVOLVED IN PATIENT CARE AND RECEPTIVE TO TREATMENT PLAN. PATIENT USES URINAL.
[2018-07-01 20:08] VITALS: BP 158/60
--- NOTE | 2018-07-02 02:15 | NUR ---
PT WAS TRANSFEREED FROM 3 PER REPORT.ASSESSMENT COMPLETED.PT REPOSITIONED IN BED WITH HELP OF FAMILY.SACRAL DRSG C/D/I.URINAL AT BEDSIDE.PT RESTING ON HIS BED AT THIS TIME.CALL LIGHT WITHIN REACH.
[2018-07-02 04:50] VITALS: BP 144/63
[2018-07-02 05:09] LABS: HEMATOCRIT 38.6 % (42.0-52.0); HEMOGLOBIN 13.3 gm/dL (14.0-18.0); MCHC 34.6 g/dL (28.0-37.0); MCV 89.8 fL (80.0-100.0); RBC 4.3 mil/uL (4.50-6.00); RDW 14.1 % (10.5-14.5); WBC 7.4 thou/uL (4.0-11.0)
[2018-07-02 05:26] LABS: CALCIUM 8.6 mg/dL (8.5-10.1); CREATININE 0.7 mg/dL (0.7-1.3); MAGNESIUM 1.8 mg/dL (1.8-2.4); POTASSIUM 3.4 mmol/L (3.5-5.1)
[2018-07-02 08:56] VITALS: BP 157/87
--- NOTE | 2018-07-02 09:00 | NUR ---
ASSESMENT COMPLETED. VSS. A/O2-3. PAIN MANAGED BY TYLENOL. NO SOA. NO NV. REPOSITIONED ORDERED. DTR AT BEDSIDE. NO CONCERNS AT THIS TIME. WILL CONT. TO MONITOR.
[2018-07-02 19:22] VITALS: BP 176/75
--- NOTE | 2018-07-03 03:46 | NUR ---
PT C/O PAIN ON HIS L SHOULDER,MANAGED WITH PO MED AND CREAM.PT REPOSITIONED WHILE IN BED PER FAMILYS'S REQUEST.DRSG TO SACRUM C/D/I.IVF AND IV ABX ADMINISTERED ORDERED.PT RESTING ON HIS BED AT THIS TIME.ISOLATION PRECAUTIONS MAINTAINED.CALL LIGHT WITHIN REACH.
[2018-07-03 06:26] VITALS: BP 162/77
--- NOTE | 2018-07-03 09:41 | HC ---
[facility] [place] [address] CONSULTATION Name: FLACO SINGH Room #: 419-P ADM IN M.R.#: [id number] Admission: 06/29/18 ������������������ Attend Phys: Marcio Lawler MD Discharge: ������������������ Date of : 38 Report #: [id number] THIS REPORT FOR: //name// CC: FAM unknown Marcio Lawler DATE OF SERVICE: 07/02/2018 HISTORY OF PRESENT ILLNESS: An 78-year-old white man developed a left gluteal abscess, incised and drained by Dr. Velez. Culture revealed Staphylococcus aureus, sensitivity is pending. He is on vancomycin and feeling better. PAST MEDICAL HISTORY: Cerebrovascular disease, hypertension, dyslipidemia, coronary artery disease, previous coronary artery stentings. 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 Cataract blind left eye. Mild dementia and rotator cuff surgery. SOCIAL HISTORY: See H and P, old records. FAMILY HISTORY: See H and P, old records. REVIEW OF SYSTEMS: Noncontributory. MEDICATIONS: The patient is currently on treatment with nicotine, aspirin, diclofenac sodium, acetaminophen, docusate, vancomycin 1 gram every 12 hours, famotidine, trazodone, lisinopril, atorvastatin, hydralazine p.r.n. PHYSICAL EXAMINATION: GENERAL: Well-developed, not toxic looking man. VITAL SIGNS: Temperature 97.2, pulse 64, respirations 16, BP 157/87, height 5 feet 8 inches, weight 154 pounds. HEENMT: Small pupils. Mouth: Upper and lower plates. NECK: Supple. LUNGS: Clear. HEART: S1, S2. No gallop. ABDOMEN: Soft, no masses or megaly. PELVIC: Cotter catheter in place. EXTREMITIES: Left gluteal region revealed an area of incision and drainage, some induration of tissues persist. Redness of surrounding tissues noted. On the left groin area, there is a small area of erythema and I make not much out of it. We will just observe. EXTREMITIES: No pretibial edema. NEUROLOGIC: Grossly within normal limits. LABORATORY DATA: Potassium 3.4, BUN 14, creatinine 0.7, glucose 149. WBC 7400, hemoglobin 13.3, platelets 199,000. Vancomycin trough 10. Sed rate was 25. [address] [address] CONSULTATION Name: FLACO SINGH Room #: 419-P ADM IN M.R.#: [id number] Admission: 06/29/18 ������������������ Attend Phys: Marcio Lawler MD Discharge: ������������������ Date of : 38 Report #: [id number] Urinalysis negative. MICROBIOLOGY DATA: Culture revealed Staphylococcus aureus. No sensitivities reported yet. RADIOLOGY EVALUATION: CT abdomen and pelvis 06/29/2018 revealed cellulitis, buttock; chronic constipation; a plaque-like calcification involving posterolateral urinary bladder, undetermined etiology, question bladder calculi adherent to the bladder wall; mild splenomegaly; cyst or hemangioma of the liver; cortical cysts in the kidneys. ASSESSMENT: 1. Staphylococcus aureus abscess, left gluteal region, status post incision and drainage. 2. History of cerebrovascular accident. 3. Mild dementia. SUGGESTIONS: Recommend continue local wound care and vancomycin. Await sensitivity of MRSA isolation while awaiting sensitivities. We will possibly discharge on an oral antibiotic. Dr. Lawler, thank you for requesting my suggestions. ��������������������������������������������� <ELECTRONICALLY SIGNED> ���������������������������������������� By: Alex Arango MD ��������������������������������������������� 07/03/18 0941 0923 1345 Alex Arango MD /nt
--- NOTE | 2018-07-03 10:46 | NUR ---
ASSESMENT COMPLETED. VSS. A/O. PAIN WITH DRESSING CHANGES. NO NOTED SOA. NO NV. REPOSITIONED. PT RESTING IN BED WILL CONT. TO MONITOR.
[2018-07-03] MEDS ORDERED: KEFLEX500 M1 PO (12:23)
[2018-07-03 13:14] VITALS: BP 162/77
--- NOTE | 2018-07-03 13:17 | NUR ---
Pt to d/c home today with [facility]. Notified [facility] of d/c. No other needs identified.
[2018-07-03 13:42] VITALS: BP 162/77
--- NOTE | 2018-07-03 14:23 | NUR ---
DC INSTRUCTIONS GIVEN TO PT AND DTR. BOTH VERBALIZED UNDERSTANDING. DRESSING CHANGED NEEDED. PT TO DC HOME WITH HH. WILL CONT,. TO MONITOR.
--- NOTE | 2018-07-03 15:33 | NUR ---
WOUND FOLLOW UP: PT. WAS SEEN TODAY BY [facility] TEACHER WITH WOUND CARE AND MYSELF. PT. WOUND IS STABLE AND PROGRESSING TOWARDS HEALING. PT. REPORTS LESS PAIN TODAY AND PT. WILL BE DISCHARGING. DISCHARE PLANING WAS DISCUSSED. RECOMMENDATIONS: CONTINUE WITH CURRENT PLAN OF CARE. PT. AND STAFF NURSE WERE INSTRUCTED ON PLAN OF CARE.
--- NOTE | 2018-07-05 07:38 | P ---
[facility] [place] [address] PROCEDURE REPORT Name: FLACO SINGH Room #: 419-P [facility] IN M.R.#: [id number] Admission: 06/29/18 ������������������ Attend Phys: Marcio Lawler MD Discharge: 07/03/18 ������������������ Date of : 38 Report #: [id number] THIS REPORT FOR: //name// CC: FAM unknown Marcio Lawler DATE OF SERVICE: 06/30/2018 PREPROCEDURE DIAGNOSIS: Abscess of the left gluteal region. POSTPROCEDURE DIAGNOSIS: Abscess, left gluteal region. PROCEDURE PERFORMED: Incision and drainage with local anesthesia, left gluteal region. DESCRIPTION OF PROCEDURE: After obtaining verbal consent with the patient and daughter and son at the bedside, the patient's left gluteal abscess area was prepped and draped in usual sterile fashion. There were no openings in the skin previous area of erythema and induration appeared to be 2.0 x 1.1 x 1.1 cm. The area was prepped and draped with Betadine in the usual sterile fashion and anesthetized with 1% lidocaine with 1:100,000 concentration of epinephrine. The skin was then incised and bluntly dissected and several abscess pockets were encountered and purulent material was released. Culture was obtained. The patient tolerated the procedure with minimal pain. He rated the pain with a maximum of 3 on a scale of 1-10 before, during and after the procedure. The post incision and drainage measurements of the wound are 2.8 cm x 0.5 cm x 2.7 cm. The resulting abscess cavity was packed with quarter inch iodoform gauze, covered with a gauze dressing. The patient tolerated procedure well. Estimated blood loss 3 mL. ��������������������������������������������� <ELECTRONICALLY SIGNED> ���������������������������������������� By: Missael Velez MD ��������������������������������������������� 07/05/18 0738 1331 0033 Missael Velez MD /nt
--- NOTE | 2018-07-05 07:38 | HC ---
[facility] [place] [address] CONSULTATION Name: FLACO SINGH Room #: 419-P [facility] IN M.R.#: [id number] Admission: 06/29/18 ������������������ Attend Phys: Marcio Lawler MD Discharge: 07/03/18 ������������������ Date of : 38 Report #: [id number] THIS REPORT FOR: //name// CC: FAM unknown Marcio Lawler DATE OF SERVICE: 06/30/2018 CHIEF COMPLAINT: Gluteal ulceration. HISTORY OF PRESENT ILLNESS: This is an 78-year-old male patient who was admitted to the Emergency Department yesterday. He has had swelling and pain in his left gluteal region started a few days earlier. He has been seen in the ER and had a CT scan done, which did not show evidence of fluid collection. He has been on IV antibiotics for 24 hours and has not had much improvement. He denies other complaints at this time. The patient's past medical history is positive for history of cerebrovascular accident for which he received TPA in 04/2018. He did have inpatient rehabilitation following that. PAST MEDICAL HISTORY: Positive for history of right ischemic cerebrovascular accident, status post TPA, history of hypertension, hyperlipidemia, coronary artery disease, tobacco abuse, right knee replacement, right hip replacement, hernia repair, mild dementia and rotator cuff surgery. SOCIAL HISTORY: The patient does smoke cigarettes having quit less than a year ago. No alcohol use. FAMILY HISTORY: Positive for heart disease and hypertension. REVIEW OF SYSTEMS: CONSTITUTIONAL: Denies fever, chills or weight loss. NEUROLOGICAL: The patient denies focal weakness. ENT: The patient denies earache, nasal drainage or sore throat. CARDIOVASCULAR: The patient denies chest pain, palpitations or diaphoresis. PULMONARY: The patient denies cough or shortness of breath. GASTROINTESTINAL: The patient denies nausea, vomiting, diarrhea or abdominal pain. ORTHOPEDIC: Does complain of pain in his left gluteal region. Other systems in a 14-point review of systems are negative. ALLERGIES: None. MEDICATIONS: Include nicotine transdermal, Apresoline, Zestril, Voltaren gel, Colace, Lipitor, aspirin, Tylenol, Pepcid, Desyrel and melatonin. PHYSICAL EXAMINATION: [facility] [address] [place] [address] CONSULTATION Name: FLACO SINGH Room #: 419-P DIS IN M.R.#: [id number] Admission: 06/29/18 ������������������ Attend Phys: Marcio Lawler MD Discharge: 07/03/18 ������������������ Date of : 38 Report #: [id number] VITAL SIGNS: At this time include temperature 98.2, pulse 62, respiratory rate of 18, blood pressure 126/47. GENERAL: This is a chronically ill-appearing male patient who appears to be in minimal distress. HEENT: Head is normocephalic. Nose and throat is clear. NECK: Supple. LUNGS: Clear. ABDOMEN: Soft. Bowel sounds present. Examination of the gluteal region demonstrates what appears to be an area of induration and erythema in the left gluteal region. I suspect clinically that there is an abscess present, although this was not demonstrated on CT scan. NEUROLOGIC: The patient does have some motor weakness and some expressive aphasia. CLINICAL IMPRESSION: Cellulitis and possible subcutaneous abscess in the left gluteal region. RECOMMENDATION: At this point in time, the patient will be placed on low air mattress, q. 2 hour turning and repositioning. We will plan for incision and drainage at the bedside. Discussed with the patient and his daughter, he will need aggressive nutritional support. Additional decision making to be undertaken following incision and drainage procedure. ��������������������������������������������� <ELECTRONICALLY SIGNED> ���������������������������������������� By: Missael Velez MD ��������������������������������������������� 07/05/18 0738 1315 0500 Missael Velez MD /nt
== END 2018-07-03 15:07 | disposition home health service (06) | DRG 871 ==
LOC: ER 12:28 → 3W 14:33 → EROBS 14:33 → 3W 06-30 06:07 → 4E 07-01 16:36
PROVIDERS: Nurse Practitioner Family; ADMIT Internal Medicine
PROC: 0H98XZZ Drainage of Buttock Skin, External Approach (ICD-10-PCS; principal; 2018-06-30)
DX: A41.9 Sepsis, unspecified organism (principal); E43 Unspecified severe protein-calorie malnutrition; L03.317 Cellulitis of buttock; I69.354 Hemiplegia and hemiparesis following cerebral infarction affecting left non-dominant side; L02.31 Cutaneous abscess of buttock; I25.10 Atherosclerotic heart disease of native coronary artery without angina pectoris; F03.90 Unspecified dementia, unspecified severity, without behavioral disturbance, psychotic disturbance, mood disturbance, and anxiety; B95.61 Methicillin susceptible Staphylococcus aureus infection as the cause of diseases classified elsewhere; M62.84 Sarcopenia; E87.6 Hypokalemia; G47.00 Insomnia, unspecified; F17.200 Nicotine dependence, unspecified, uncomplicated; H54.8 Legal blindness, as defined in USA; R13.10 Dysphagia, unspecified; R41.89 Other symptoms and signs involving cognitive functions and awareness; L30.9 Dermatitis, unspecified; I10 Essential (primary) hypertension; E78.5 Hyperlipidemia, unspecified; Z96.641 Presence of right artificial hip joint; Z96.651 Presence of right artificial knee joint; Z98.42 Cataract extraction status, left eye; Z98.41 Cataract extraction status, right eye; Z79.82 Long term (current) use of aspirin; Z95.5 Presence of coronary angioplasty implant and graft; Z79.899 Other long term (current) drug therapy; Z79.1 Long term (current) use of non-steroidal anti-inflammatories (NSAID); Z91.040 Latex allergy status; Z82.49 Family history of ischemic heart disease and other diseases of the circulatory system
CPT/HCPCS: 10080; 10783

== ENCOUNTER 2018-09-23 13:04 | Emergency (ER) | payer OTHER ==
[~2018-09-23] VITALS: Ht 172.7 cm; Wt 68.0 kg
[~2018-09-23 13:04] MED LIST changes: +KEFLEX500 M1 PO
[2018-09-23 13:27] LABS: ABSOLUTE NEUTROPHILS 8.5 thou/uL (1.4-8.2); BASOPHILS 0.6 % (0.0-2.0); HEMATOCRIT 41.5 % (42.0-52.0); HEMOGLOBIN 14.3 gm/dL (14.0-18.0); LYMPHOCYTES 11.9 % (24.0-44.0); MCH 30.8 pg (26.0-34.0); MCHC 34.4 g/dL (28.0-37.0); MCV 89.4 fL (80.0-100.0); MONOCYTES 8.7 % (1.0-8.0); PLATELET COUNT 239 thou/uL (150-400); POLYS 77.8 % (36.0-66.0); RBC 4.64 mil/uL (4.50-6.00); WBC 10.9 thou/uL (4.0-11.0)
[2018-09-23 13:32] LABS: ANION GAP 7 mmol/L (7-16); BUN 25 mg/dL (7-18); CALCIUM 9.3 mg/dL (8.5-10.1); CHLORIDE 105 mmol/L (98-107); CO2 28 mmol/L (21-32); CREATININE 0.8 mg/dL (0.7-1.3); GLUCOSE 148 mg/dL (74-106); POTASSIUM 3.8 mmol/L (3.5-5.1); SODIUM 140 mmol/L (136-145)
[2018-09-23 13:41] LABS: ALBUMIN 3.4 g/dL (3.4-5.0); SGOT 32 U/L (15-37); SGPT 56 U/L (30-65); TOTAL BILIRUBIN 1.4 mg/dL (<0.1-1.0); TROPONIN-I <0.06 ng/mL (<0.06)
[2018-09-23 14:03] LABS: URINE BLOOD NEGATIVE (Negative); URINE CLARITY CLEAR; URINE COLOR YELLOW; URINE GLUCOSE-RANDOM* NEGATIVE (Negative); URINE KETONES NEGATIVE (Negative); URINE LEUKOCYTES-REFLEX NEGATIVE (Negative); URINE NITRITE-REFLEX NEGATIVE (Negative); URINE PROTEIN (DIPSTICK) TRACE (Negative); URINE SPECIFIC GRAVITY 1.025 (1.005-1.035)
[2018-09-23 14:04] LABS: ICTOTEST (BILI CONFIRMATORY) Negative (Negative); URINE BILIRUBIN NEGATIVE (Negative)
[2018-09-23] MEDS ORDERED: FLAGYL500 M1 PO (15:44)
[2018-09-23] MEDS ORDERED: TYLENOL325 MG PO (16:09)
[2018-09-23] MEDS ORDERED: ASPIR 8181 M1 PO (16:09)
[2018-09-23] MEDS ORDERED: CARVEDILOL12.5 MG PO (16:10)
[2018-09-23] MEDS ORDERED: LIPITOR40 MG PO (16:10)
[2018-09-23] MEDS ORDERED: COLACE100 MG PO (16:10)
[2018-09-23] MEDS ORDERED: FAMOTIDINE 20 M20 MG PO (16:10)
[2018-09-23] MEDS ORDERED: HYDRALAZINE 10M10 MG PO (16:11)
[2018-09-23] MEDS ORDERED: MELATONIN5 M1 PO (16:11)
[2018-09-23] MEDS ORDERED: TRAZODONE HCL100 MG PO (16:12)
[2018-09-23] MEDS ORDERED: NICODERM CQ1 EAC1 TD (16:12)
[2018-09-23] MEDS ORDERED: PRINIVIL10 MG PO (16:13)
[2018-09-23] MEDS ORDERED: DOXYCYCLINE 10100 M1 PO (16:14)
[2018-09-23] MEDS ORDERED: KEFLEX500 M1 PO (16:14)
[2018-09-23] MEDS ORDERED: CARAFATE 1 GM TA1 G1 PO (16:14)
[2018-09-23 16:15] VITALS: BP 157/76
--- NOTE | 2018-09-24 11:52 | EKG ---
[facility] [place] [address] ELECTROCARDIOGRAM REPORT Name: FLACO SINGH Room #: DEP JYOTI Valencia#: [id number] ������������������ Admission: 09/23/18 ������������������ Attend Phys: Discharge: 09/23/18 ������������������ Date of : 38 Report #: [id number] ����������������������������������������������������������������� [id number] THIS REPORT FOR: //name// [facility] ED Test Date: 2018-09-23 Test Time: 13:24:08 Pat Name: FLACO SINGH Department: Room: Gender: M [employer] Supervisor: 12 : 1940 Requested By: Radhika Quintero Order Number: [id number] MD: Srikanth Beal Measurements Intervals [place] Rate: 56 P: -51 MT: 203 QRS: -46 QRSD: 146 T: 172 QT: 433 QTc: 418 Interpretive Statements Sinus or ectopic atrial rhythm Left bundle branch block Compared to ECG 04/25/2018 17:21:01 Ectopic atrial rhythm now present Sinus rhythm no longer present Ventricular premature complex(es) no longer present Electronically Signed On 09-24-2018 11:52:08 CDT by Srikanth Beal [email or web address] ��������������������������������������������� <ELECTRONICALLY SIGNED> ���������������������������������������� By: Srikanth Beal MD ��������������������������������������������� 09/24/18 1152 1324 1324 Srikanth Beal MD /IDANIA
== END 2018-09-23 16:17 | disposition home or self-care (01) ==
LOC: ER 13:04
PROVIDERS: Physician Assistant
DX: J18.8 Other pneumonia, unspecified organism (principal); L02.31 Cutaneous abscess of buttock; I10 Essential (primary) hypertension; E78.5 Hyperlipidemia, unspecified; I25.10 Atherosclerotic heart disease of native coronary artery without angina pectoris; F03.90 Unspecified dementia, unspecified severity, without behavioral disturbance, psychotic disturbance, mood disturbance, and anxiety; Z86.73 Personal history of transient ischemic attack (TIA), and cerebral infarction without residual deficits; Z96.641 Presence of right artificial hip joint; Z96.651 Presence of right artificial knee joint; Z91.040 Latex allergy status; Z79.899 Other long term (current) drug therapy

== ENCOUNTER 2018-11-03 11:34 | Inpatient (IN) | payer OTHER ==
[~2018-11-03] VITALS: Ht 172.7 cm; Wt 72.6 kg
--- NOTE | ~2018-11-03 | HC ---
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 The patient progressed to the point where he was mod assist with sit to stand, mod assist, lower extremity dressing required mod to max assist for bathing. He was on a mechanical soft diet with honey thickened liquids. He has a very supportive family and was able to go home with his daughter. From there, he went to [facility] for further therapies after receiving home health care and was being transitioned over to the stroke foundation. The patient was progressing as far as his functional mobility and attempting to get up on his own and unfortunately fell and sustained a left hip fracture. He was admitted to [facility], diagnosed with a left hip intertrochanteric fracture and underwent intramedullary nailing on 11/04/[address] Nice. The patient is loud, weightbearing as tolerated. He is being monitored regarding low blood pressure. There is a concern for possible pneumonia. He is on DVT prophylaxis. We are seeing him in rehabilitation medicine consultation. PAST MEDICAL HISTORY: Includes the right brain CVA with left upper extremity plegia and lower extremity paresis. 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 History includes the prior cerebrovascular accident as noted above. He has a history of hypertension, hyperlipidemia, coronary artery disease, status post stenting, tobacco abuse, prior right patellar surgery, right hip replacement, left humeral head fracture and underwent therapy of that left shoulder, but never regained good range of motion. There is note of some mild dementia and the daughter noted that there was some worsening of this during his [facility] stay and he has some decreased attention that was noted. ALLERGIES: No known drug allergies. HABITS: Tobacco 1-1/2 packs per day. He was a prior smoker before his stroke. FAMILY HISTORY: Heart disease and hypertension. SOCIAL HISTORY: He has been living with his daughter and son-in-law in a house, 4 steps total to get in. [address] [address] CONSULTATION Name: FLACO SINGH Room #: 455-P [facility] IN M.R.#: [id number] Admission: 11/03/18 ������������������ Attend Phys: Jaret Nelson, Discharge: ������������������ Date of : 38 Report #: [id number] REVIEW OF SYSTEMS: No current complaints of chest pain, shortness of breath or abdominal discomfort. PHYSICAL EXAMINATION: GENERAL: An 78-year-old male in no obvious distress. VITAL SIGNS: Last recorded temperature 37.1, pulse 85, respirations 16, blood pressure 130/70. NEUROLOGIC: He is alert. He has obvious decreased visual field attention to the left. He can follow basic 1 step commands. He has functional range of motion of the right upper and right lower extremity, strength is probably a grade 4-/5, left upper extremity is densely plegic. Tone is probably a grade 1-2. He does have 1-1/2-1 fingerbreadths subluxation of the left shoulder. Left lower extremity, the left hip incision is dressed. He appears to have some limited movement of that left lower extremity, although it is difficult to assess as he has some discomfort from the pain as well. Functionally, he is max assist with bed to chair, squat pivot transfers are max assist. He is allowed weightbearing as tolerated as noted above. ASSESSMENT: An 78-year-old male with the following problem list: 1. Left hip intertrochanteric fracture, status post intramedullary nailing on 11/04/2018, weightbearing as tolerated. 2. Right brain CVA with premorbid left upper extremity plegia and left lower extremity paresis. 3. Dysphagia. He is currently on mechanical altered shaft with nectar thickened liquid. 4. History of coronary artery disease with stenting. 5. Hypertension. 6. Hyperlipidemia. 7. Prior tobacco abuse. 8. Deep venous thrombosis prophylaxis. PLAN: We are assessing the patient regarding his tolerance for an acute in-hospital inpatient rehabilitation program. We will be glad to follow along with you regarding his rehab therapy needs. ��������������������������������������������� ���������������������������������������� By: ��������������������������������������������� 1243 1457 Ulysses Khalil MD /MOISES
[~2018-11-03 11:34] MED LIST changes: +ASPIR 8181 M1 PO; +CARAFATE 1 GM TA1 G1 PO; +CARVEDILOL12.5 MG PO; +DOXYCYCLINE 10100 M1 PO; +FAMOTIDINE 20 M20 MG PO; +FLAGYL500 M1 PO; +LIPITOR40 MG PO; +NICODERM CQ1 EAC1 TD; +PRINIVIL10 MG PO; +TYLENOL325 MG PO
[2018-11-03 11:52] VITALS: BP 152/70
[2018-11-03 13:43] LABS: ABSOLUTE NEUTROPHILS 7.1 thou/uL (1.4-8.2); BASOPHILS 0.9 % (0.0-2.0); HEMATOCRIT 44.5 % (42.0-52.0); HEMOGLOBIN 15.2 gm/dL (14.0-18.0); LYMPHOCYTES 11.5 % (24.0-44.0); MCH 30.5 pg (26.0-34.0); MCHC 34.1 g/dL (28.0-37.0); MCV 89.6 fL (80.0-100.0); MONOCYTES 5.3 % (1.0-8.0); PLATELET COUNT 223 thou/uL (150-400); POLYS 81.3 % (36.0-66.0); RBC 4.97 mil/uL (4.50-6.00); RDW 13.3 % (10.5-14.5); WBC 8.8 thou/uL (4.0-11.0)
[2018-11-03 13:54] LABS: CALCIUM 9.5 mg/dL (8.5-10.1); CREATININE 0.9 mg/dL (0.7-1.3); POTASSIUM 4.1 mmol/L (3.5-5.1)
[2018-11-03 14:03] LABS: APTT 23.5 Seconds (24.5-32.8); PROTIME 10.1 Seconds (9.3-11.4)
[2018-11-03 15:27] LABS: URINE BILIRUBIN NEGATIVE (Negative); URINE BLOOD NEGATIVE (Negative); URINE CLARITY CLEAR; URINE COLOR YELLOW; URINE GLUCOSE-RANDOM* NEGATIVE (Negative); URINE KETONES NEGATIVE (Negative); URINE LEUKOCYTES-REFLEX NEGATIVE (Negative); URINE NITRITE-REFLEX NEGATIVE (Negative); URINE PROTEIN (DIPSTICK) NEGATIVE (Negative); URINE SPECIFIC GRAVITY 1.015 (1.005-1.035)
[2018-11-03 17:48] VITALS: BP 153/75
[2018-11-03 18:43] VITALS: BP 159/70
[2018-11-03 18:55] VITALS: BP 151/71
[2018-11-03 19:02] VITALS: BP 151/71
[2018-11-03 21:53] VITALS: BP 155/90
[2018-11-04 00:20] VITALS: BP 142/79
[2018-11-04 04:24] VITALS: BP 160/76
--- NOTE | 2018-11-04 07:57 | NUR ---
admit pt admitted to room 455 s/p fall with left hip fracture. orthopedic surgeon consulted and surgery scheduled for this am for repair. 4 mg morphine given x 1 and pt slept remainder of shift vss family at bedside continue poc.
[2018-11-04 08:00] VITALS: BP 138/98; BP 147/71
[2018-11-04 16:25] VITALS: BP 147/54
[2018-11-04 16:51] VITALS: BP 147/51
[2018-11-04 17:26] LABS: HEMATOCRIT 41.4 % (42.0-52.0); HEMOGLOBIN 14.1 gm/dL (14.0-18.0); MCH 30.3 pg (26.0-34.0); MCV 89.2 fL (80.0-100.0); RBC 4.64 mil/uL (4.50-6.00); RDW 13.6 % (10.5-14.5); WBC 14.9 thou/uL (4.0-11.0)
--- NOTE | 2018-11-04 17:29 | NUR ---
PT A&OX2-3, VSS, PAIN IN LEFT HIP MANAGED WITH MORPHINE. PATIENT HAD HIP SURGERY TODAY, DRESSING C/D/I, ICE PACK APPLIED, SCDS PLACED. NEURO CHECKS WITH VITALS COMPLETED ORDERED. NO SIGNS OF DISTRESS, FAMILY AT BEDSIDE, WILL CONTINUE TO MONITOR.
[2018-11-04 19:55] VITALS: BP 163/40
[2018-11-05 01:13] VITALS: BP 149/54
[2018-11-05 04:09] VITALS: BP 146/75
--- NOTE | 2018-11-05 04:53 | NUR ---
PROGRESS PT DROWSY FROM SURGERY BUT WAKES TO VERBAL STIMULI. VSS, DENIES PAIN. INCONTINENT OF A LARGE AMOUNT OF URINE. REPOSITIONED WITH WEDGE NEEDED. IV ANTIBIOTICS ADMINISTERED ORDERED. LEFT FOOT WARM DRY WITH GOOD CAP REFILL GOOD SENSATION AND GOOD PEDAL PULSE, ABLE TO DORSI AND PEDAL FLEX. CONTINUE PLAN OF CARE
[2018-11-05 05:56] LABS: HEMATOCRIT 39.7 % (42.0-52.0); HEMOGLOBIN 13.6 gm/dL (14.0-18.0); MCH 30.7 pg (26.0-34.0); MCHC 34.2 g/dL (28.0-37.0); MCV 89.7 fL (80.0-100.0); RBC 4.43 mil/uL (4.50-6.00); RDW 13.2 % (10.5-14.5); WBC 16.3 thou/uL (4.0-11.0)
[2018-11-05 06:17] LABS: CREATININE 0.9 mg/dL (0.7-1.3); POTASSIUM 3.6 mmol/L (3.5-5.1)
[2018-11-05 08:05] VITALS: BP 133/54
--- NOTE | 2018-11-05 09:32 | O ---
[facility] [place] [address] OPERATIVE REPORT Name: FLACO SINGH Room #: 455-P ADM IN M.R.#: [id number] Admission: 11/03/18 ������������������ Attend Phys: Jaret Nelson, Discharge: ������������������ Date of : 38 Report #: [id number] THIS REPORT FOR: //name// CC: Jaret Nelson [facility] DATE OF SERVICE: 11/03/2018 SERVICE: Orthopedics. FACILITY: [facility] SURGEON: Ha Nice MD BLOCK HAND: Rachele Jacobs NP. INDICATION FOR BLOCK HAND: Fixation, instrumentation, and positioning assistance. PREOPERATIVE DIAGNOSIS: Left intertrochanteric hip fracture. POSTOPERATIVE DIAGNOSIS: Left intertrochanteric hip fracture. PROCEDURE: IM nail fixation of left intertrochanteric hip fracture. COMPLICATIONS: None. DRAINS: None. SPECIMENS: None. FINDINGS: Casey and Nephmadelyn Intertan short 11.5 mm nail with 95 and 90 mm proximal compression screws and a 32.5 mm distal locking screw. HISTORY AND INDICATIONS: The patient is an 78-year-old gentleman who took a fall yesterday, sustained a left hip fracture. He was indicated for surgical treatment, admitted to the hospital. Risks, benefits, alternatives and indications of surgery were discussed with his family and they gave full informed consent and wished to proceed. Risks include but not limited to pain, bleeding, infection, injury to nerves or blood vessels, persistent pain despite surgical intervention, failure of any repairs, malunion, nonunion, need for further surgery as well as complications related to anesthesia. PROCEDURE IN DETAIL: After left lower extremity was correctly identified in preoperative holding area as the operative extremity, the patient was taken to the operating room where general anesthesia was induced without complications. [facility] [address] [place] [address] OPERATIVE REPORT Name: FLACO SINGH Room #: 455-P [facility] IN M.R.#: [id number] Admission: 11/03/18 ������������������ Attend Phys: Jaret Nelson, Discharge: ������������������ Date of : 38 Report #: [id number] He was then transferred to the operating table, padded appropriately. Prophylactic antibiotics were administered at appropriate time. Left leg was evaluated under fluoroscopy after he was positioned. The alignment was near anatomic. He just required some varus stress as well as traction and he had anatomically aligned proximal femur. Left leg was then prepped and draped in standard sterile fashion. Timeout procedure performed. Proximal incision was made. Dissection was taken down to the tip of the trochanter and then a guidepin was placed in the appropriate position in both planes of x-ray. An entry reamer was then utilized and then the proximal femoral canal was reamed to a size 13 to allow an 11.5 mm nail be placed. After this was placed into position, the outrigger was utilized to place the proximal compression and locking screws and then these were advanced in a typical fashion using guidepin and C-arm on multiple planes to ensure the appropriate tip apex distance for the proximal of the two screws. The first screw was then placed and then the locking screw was placed on the distal side. Both planes of x-ray were used to confirm appropriate positioning of the proximal interlocking screws. When good secure fixation was achieved, the construct was locked from above. The outrigger was then used to place a distal locking screw using fluoroscopy to assist and then once everything was secure, final x-rays were taken. The outrigger was removed. Wounds were copiously irrigated. Deep layers closed with 0 Vicryl suture. Skin was closed with 2-0 Vicryl followed by skin liz and sterile dressing was applied. The patient was awakened from anesthesia and taken to recovery room in stable condition. No complication. All counts were correct. ��������������������������������������������� <ELECTRONICALLY SIGNED> ���������������������������������������� By: Ha Nice MD ��������������������������������������������� 11/05/18 0932 1505 1814 Ha Nice MD /nt
[2018-11-05 14:55] VITALS: BP 124/56; BP 152/100
--- NOTE | 2018-11-05 17:34 | NUR ---
LEFT HIP DRESSING DRY AND INTACT. GOOD COLOR MOTION SENSITIVITY TO LEFT FOOT. ABLE TO MOVE TOES SLIGHTLY. FULL ROM OF RIGHT UPPER AND LOWER EXTREMITY. C/O PAIN LEFT HIP MEDICATION GIVEN. FAMILY AT BEDSIDE. INCONTINET OF SMALL BM AND URINE 4 TIMES THIS SHIFT. UP TO CHAIR WITH STAND PIVOT MODERATE ASSIST. POOR APPETITE FOR MEALS. LUNGS DIMINSHED ON ROOM AIR. SKIN WARM AND DRY.
--- NOTE | 2018-11-05 18:34 | EKG ---
[place] [address] [facility] [place] [address] ELECTROCARDIOGRAM REPORT Name: FLACO SINGH Room #: 455-P ADM IN M.R.#: [id number] ������������������ Admission: 11/03/18 ������������������ Attend Phys: Jaret Nelson, Discharge: ������������������ Date of : 38 Report #: [id number] ����������������������������������������������������������������� [id number] THIS REPORT FOR: //name// [facility] ED Test Date: 2018-11-03 Test Time: 13:44:03 Pat Name: FLACO SINGH Department: Room: [facility] Gender: M Thermal Cutter Hand: TRINY : 1940 Requested By: Elisa Daley Order Number: [id number] MD: Jayesh Pettit Measurements Intervals [place] Rate: 66 P: -52 RI: 173 QRS: -53 QRSD: 153 T: 166 QT: 421 QTc: 442 Interpretive Statements Sinus rhythm Ventricular bigeminy Left bundle branch block Compared to ECG 09/23/2018 13:24:08 Ventricular premature complex(es) now present Electronically Signed On 11-05-2018 18:34:17 CDT by Jayesh Pettit [email or web address] ��������������������������������������������� <ELECTRONICALLY SIGNED> ���������������������������������������� By: Jayesh Pettit MD ��������������������������������������������� 11/05/18 1834 1344 1344 Jayesh Pettit MD /EPI
[2018-11-05 22:38] VITALS: BP 120/63
[2018-11-06 03:11] VITALS: BP 148/63
[2018-11-06 06:35] LABS: ABSOLUTE NEUTROPHILS 10.9 thou/uL (1.4-8.2); BASOPHILS 0.3 % (0.0-2.0); EOSINOPHILS 0.2 % (0.0-3.0); HEMATOCRIT 34.4 % (42.0-52.0); HEMOGLOBIN 11.7 gm/dL (14.0-18.0); LYMPHOCYTES 9.5 % (24.0-44.0); MCH 30.7 pg (26.0-34.0); MCV 90.2 fL (80.0-100.0); MONOCYTES 10.3 % (1.0-8.0); PLATELET COUNT 203 thou/uL (150-400); POLYS 79.7 % (36.0-66.0); RBC 3.81 mil/uL (4.50-6.00); RDW 13.3 % (10.5-14.5); WBC 13.7 thou/uL (4.0-11.0)
[2018-11-06 06:56] LABS: ALBUMIN 2.8 g/dL (3.4-5.0); CALCIUM 8.9 mg/dL (8.5-10.1); CREATININE 0.9 mg/dL (0.7-1.3); MAGNESIUM 2.2 mg/dL (1.8-2.4); POTASSIUM 3.9 mmol/L (3.5-5.1); TOTAL BILIRUBIN 0.8 mg/dL (<0.1-1.0); TOTAL PROTEIN 5.9 g/dL (6.4-8.2)
[2018-11-06 09:44] VITALS: BP 130/70
[2018-11-06 15:40] VITALS: BP 124/57
--- NOTE | 2018-11-06 16:50 | NUR ---
ASSESSMENT: CM REVIEWED CHART AND MET WITH PATIENT AT THE BEDSIDE. PTS SON IN LAW IS ALSO PRESENT. PT LIVES IN A HOUSE WITH HIS DAUGHTER AND SON IN LAW. SON IN LAW REPORTS PT NORMALLY USES A WHEELCHAIR AND THEY WHEEL HIM TO THE FRONT OF THE HOUSE WHERE THEY DO NOT HAVE TO USE STEPS AND HIS BEDROOM IS ON THE MAIL LEVEL. HE REPORTS IF PATIENT HAS TO SHOWER THEY TAKE HIM TO THE SECOND LEVEL WHICH IS ABOUT 5 STEPS WITH HANDRAILS. PT HAS BEEN TO [facility] IN THE PAST AND SON IN LAW REPORTS HE HAS BEEN GOING TO ABILITY BUT FINISHED THAT ABOUT 3 WEEKS AGO AND WAS GOING TO START OUTPATIENT THERAPY SOMEWHERE. CM DISCUSSED ROLE. [facility] CONSULT WAS PLACED FOR PT AND THEY ARE VERY INTERESTED IN [facility]. [facility] LI[facility]ON STATING THEY CAN ACCEPT PT FOR ADMISSION. PLANS ARE TO GO TO [facility] ONCE STABLE. SON IN LAW REPORTS HIS GABE IS AT HOME RESTING AND HE WILL PASS ON THE NEWS.
--- NOTE | 2018-11-07 04:48 | NUR ---
Pt. rested quietly at intervals during the night when checked on during frequent rounds. He did c/o back pain and po pain med given (see emar) with some relief. Pt. turned and repositioned for comfort. Dgt. refused pt. turns during the night. Bed alarm is on.
[2018-11-07 07:54] VITALS: BP 145/76
[2018-11-07 09:19] VITALS: BP 145/76
--- NOTE | 2018-11-07 10:08 | NUR ---
[facility] INDICATED THAT THEY ARE ABLE TO ACCEPT PT ONCE MEDICALLY STABLE. CARE TEAM INDICATED PT IS MEDICALLY STABLE TO [facility]ARAT[facility] THIS DAY. CM MET WITH PT AND JUANR/MEAGAN BERNAL AT BEDSIDE THIS AM. THEY ARE AWARE AND AGREEABLE. PT WILL BE GOING TO ROOM 503. CHOICE LETTER WAS SIGNED AND PLACED IN CHART. NO CHART COPY NEEDED. REPORT TO BE CALLED TO . NO OTHER CM INTERVENTION INDICATED CASE CLOSED.
[2018-11-07] MEDS ORDERED: XARELTO10 MG PO (11:54)
[2018-11-07] MEDS ORDERED: LEVAQUIN 500 M500 M2 PO (11:54)
--- NOTE | 2018-11-07 20:52 | NUR ---
PT A&OX2, VSS, PAIN IN LEFT HIP. PAIN MANAGED WITH ICE PACK, REPOSITIONING, AND MEDICATION. PATIENT TURNED OFTEN WITH THE HELP OF PT DAUGHTER AT BEDSIDE. FLUIDS RAN ORDERED. PATIENT DISCHARGED TO REHAB FACILITY [facility]. ALL BELONGINGS WITH PATIET, IV REMOVED BEFORE TRANSFER.
== END 2018-11-07 15:50 | DRG 480 ==
LOC: ER 11:34 → EROBS 13:26 → 4W 13:26
PROVIDERS: Emergency Medicine; Internal Medicine; Orthopaedic Surgery Sports Medicine; ADMIT Surgery
PROC: 0QS606Z Reposition Right Upper Femur with Intramedullary Internal Fixation Device, Open Approach (ICD-10-PCS; principal; 2018-11-03)
DX: S72.142A Displaced intertrochanteric fracture of left femur, initial encounter for closed fracture (principal); J18.9 Pneumonia, unspecified organism; G92 Toxic encephalopathy; I10 Essential (primary) hypertension; E78.5 Hyperlipidemia, unspecified; I25.10 Atherosclerotic heart disease of native coronary artery without angina pectoris; F17.200 Nicotine dependence, unspecified, uncomplicated; Z96.651 Presence of right artificial knee joint; Z96.641 Presence of right artificial hip joint; F03.90 Unspecified dementia, unspecified severity, without behavioral disturbance, psychotic disturbance, mood disturbance, and anxiety; W01.0XXA Fall on same level from slipping, tripping and stumbling without subsequent striking against object, initial encounter; R13.10 Dysphagia, unspecified; H54.40 Blindness, one eye, unspecified eye; I48.91 Unspecified atrial fibrillation; I95.9 Hypotension, unspecified; Z95.5 Presence of coronary angioplasty implant and graft; Z79.2 Long term (current) use of antibiotics; Z79.82 Long term (current) use of aspirin; Z79.899 Other long term (current) drug therapy; Z91.040 Latex allergy status; Y93.89 Activity, other specified; Y92.89 Other specified places as the place of occurrence of the external cause; Y99.8 Other external cause status; Z82.49 Family history of ischemic heart disease and other diseases of the circulatory system; I69.391 Dysphagia following cerebral infarction; I69.334 Monoplegia of upper limb following cerebral infarction affecting left non-dominant side; I69.332 Monoplegia of upper limb following cerebral infarction affecting left dominant side
CPT/HCPCS: 10040; 50010; 50101; 50386; 51412; 51538; 52304; 55445; 56525; 57092; 62110; 62900; 70005

== ENCOUNTER 2018-11-07 10:25 | Inpatient (IN) | payer OTHER ==
[~2018-11-07] VITALS: Ht 172.7 cm; Wt 72.6 kg
--- NOTE | ~2018-11-07 | HC ---
[facility] [place] [address] CONSULTATION Name: FLACO SINGH Room #: 511-P [facility] IN M.R.#: [id number] Admission: 11/07/18 Attend Phys: Ulysses Khalil MD Discharge: Date of : 38 Report #: [id number] THIS REPORT FOR: //name// CC: Ulysses Crolwey DATE OF SERVICE: 11/08/2018 CHIEF COMPLAINT: Left heel ulceration. HISTORY OF PRESENT ILLNESS: This is an 78-year-old male patient who was getting out of bed, fell on his side and has an intertrochanteric fracture of the left femur. He has had a previous cerebrovascular accident with left-sided hemiparesis and he is now admitted to rehab for ongoing rehabilitation from his hip fracture and continuation of physical therapy, occupational therapy related to cerebrovascular accident. The patient was noted to have an ulcer on his left heel. I have been asked to see him with regard to wound care. PAST MEDICAL HISTORY: The patient's past medical history is positive for hypertension, hyperlipidemia, recent femur fracture, status post open reduction and internal fixation, previous cerebrovascular accident with left-sided weakness. MEDICATIONS: The patient's current medications include Tylenol, aspirin, atorvastatin, carvedilol, famotidine, hydralazine, melatonin, nicotine, trazodone, lisinopril, Keflex and sucralfate. SOCIAL HISTORY: Negative for alcohol or tobacco use. Lives at home with his daughter. FAMILY HISTORY: Positive for heart disease and hypertension. ALLERGIES: LATEX. REVIEW OF SYSTEMS: CONSTITUTIONAL: The patient denies fever, chills or weight loss. NEUROLOGICAL: The patient has left-sided weakness. ENT: The patient denies earache, nasal drainage, sore throat. CARDIOVASCULAR: The patient denies chest pain, palpitations or diaphoresis. PULMONARY: The patient denies cough or shortness of breath. GASTROINTESTINAL: The patient denies nausea, vomiting, diarrhea. ORTHOPEDIC: The patient does complain of pain in his left hip. Denies swelling of the extremities. Other systems in a 14-point review of systems are negative. PHYSICAL EXAMINATION: [facility] [address] [place] [address] CONSULTATION Name: FLACO SINGH Room #: 511-P [facility] IN M.R.#: [id number] Admission: 11/07/18 Attend Phys: Ulysses Khalil MD Discharge: Date of : 38 Report #: [id number] VITAL SIGNS: At this time include temperature 36.4, pulse 71, respiratory rate 18 and blood pressure 150/73. GENERAL: This is a chronically ill-appearing male patient who appears to be in no distress. HEENT: Head normocephalic. Nose and throat are clear. NECK: Supple and soft. EXTREMITIES: Examination of the gluteal sacral region is not able to be performed as the patient is sitting up in a wheelchair and is not able to stand or pivot at this time. Lower extremities demonstrate skin is pink, warm and dry. Trace edema noted. Very small circular ulceration on the lateral portion of the left heel. It is relatively superficial with granulation tissue present on the surface. NEUROLOGIC: The patient is alert, conversant and limited movement on the left side. LABORATORY STUDIES: Include white blood cell count 9.8 with hemoglobin of 10.7, hematocrit 31.0. Sodium 142, potassium 3.7, chloride 108, CO2 of 26, BUN 28, creatinine 0.8 and glucose is elevated at 191. CLINICAL IMPRESSION: 1. Stage 3 pressure ulcer in the left heel. 2. Recent left intertrochanteric femur fracture, status post open reduction and internal fixation. 3. Recent cerebrovascular accident with left-sided weakness. RECOMMENDATIONS: At this point in time, we will recommend a border foam to be applied to the left heel ulcer on Tuesday, Tuesday and Tuesday. We will recommend PRAFO boots while in bed. It is okay that he wear shoes and participate fully with physical and occupational therapy. He will need ongoing aggressive nutritional support to maximize wound healing. I appreciate being asked to see him in consultation. By: 1112 0058 Missael Velez MD /roro
[2018-11-07] MEDS ORDERED: XARELTO10 MG PO (11:54)
[2018-11-07] MEDS ORDERED: LEVAQUIN 500 M500 M2 PO (11:54)
[2018-11-07 16:00] VITALS: BP 150/67
[2018-11-07 16:45] VITALS: BP 150/67
[2018-11-07 21:17] VITALS: BP 162/75
[2018-11-08 06:17] LABS: HEMOGLOBIN 10.7 gm/dL (14.0-18.0); MCH 30.9 pg (26.0-34.0); MCHC 34.5 g/dL (28.0-37.0); MCV 89.5 fL (80.0-100.0); RBC 3.47 mil/uL (4.50-6.00); RDW 13.4 % (10.5-14.5); WBC 9.8 thou/uL (4.0-11.0)
[2018-11-08 06:24] LABS: CALCIUM 8.7 mg/dL (8.5-10.1); CREATININE 0.8 mg/dL (0.7-1.3); POTASSIUM 3.7 mmol/L (3.5-5.1)
[2018-11-08 08:00] VITALS: BP 150/73
[2018-11-08 19:45] VITALS: BP 108/62
[2018-11-09 09:22] VITALS: BP 153/65
[2018-11-09 19:38] VITALS: BP 120/60
[2018-11-10 07:30] VITALS: BP 148/79
[2018-11-10 20:56] VITALS: BP 130/72
[2018-11-11 07:45] VITALS: BP 166/81
[2018-11-11 20:00] VITALS: BP 148/68
[2018-11-12 19:10] VITALS: BP 96/57
[2018-11-12 20:31] VITALS: BP 165/78
[2018-11-12 20:32] VITALS: BP 162/72
[2018-11-13 08:00] VITALS: BP 166/93
[2018-11-13 19:24] VITALS: BP 141/57
[2018-11-14 07:23] VITALS: BP 162/70
[2018-11-14 19:10] VITALS: BP 131/54
[2018-11-15 07:45] VITALS: BP 155/64
[2018-11-15 19:50] VITALS: BP 148/79
[2018-11-16 07:20] VITALS: BP 145/49
--- NOTE | 2018-11-16 15:20 | H ---
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 The patient progressed to a point where he was mod assist with sit to stand, mod assist, lower extremity dressing required mod to max assist for bathing. He was on mechanical soft diet with honey thickened liquids. He has a supportive family and was able to go home with his daughter. From there, he went to [facility] for further therapies after receiving home health care and has been transitioned over to the stroke foundation. He was progressing as far as his functional mobility was attempting to get up on his own and unfortunately fell and sustained a left hip fracture. He was admitted to [facility], diagnosed with a left hip intertrochanteric fracture and underwent intramedullary nailing on 11/04/[address] Nice. He is allowed weightbearing as tolerated. There has been concern for possible pneumonia and is being monitored regarding low blood pressure. He has been on DVT prophylaxis. He has been admitted now for acute in-hospital inpatient rehabilitation. 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 Apparently, had a history of a lazy eye. History of prior cerebrovascular accident as noted above. History of hypertension, hyperlipidemia, coronary artery disease status post stenting, tobacco abuse, prior right patellar surgery, right hip replacement, left humeral head fracture and underwent therapy of the left shoulder, but never regained full range of motion. There is noted some mild dementia. ALLERGIES: No known drug allergies. HABITS: Tobacco 1-1/2 packs per day. He was a prior smoker before stroke. FAMILY HISTORY: Heart disease and hypertension. SOCIAL HISTORY: He has been living with his daughter and son-in-law in house, 4 steps total to get in. [address] [address] HISTORY AND PHYSICAL Name: FLACO SINGH Room #: 511-P [facility] IN .R.#: [id number] Admission: 11/07/18 Attend Phys: Ulysses Khalil MD Discharge: Date of : 38 Report #: [id number] REVIEW OF SYSTEMS: No current complaints of chest pain, shortness of breath or abdominal discomfort. PHYSICAL EXAMINATION: GENERAL: An 78-year-old white male in no obvious distress. VITAL SIGNS: Temperature 98.3, pulse 72, respirations 24, blood pressure 162/75. NEUROLOGIC: The patient is alert. He does have the decreased visual field attention to the left. HEAD, EYES, EARS, NOSE, AND THROAT: Otherwise appeared to be benign. CHEST: Sounded clear to auscultation. CARDIOVASCULAR: Regular rate and rhythm. ABDOMEN: He is of slender build. Bowel sounds positive, nontender. GENITOURINARY AND RECTAL: Deferred. EXTREMITIES: He has functional range of motion of the right upper and right lower extremity with strength probably a grade 4-/5. Left upper extremity is densely plegic. He does have 1-1-1/2 fingerbreadth subluxation of the left shoulder. Tone is grade 1-2. Left lower extremity, left hip is dressed over the incision. He has some discomfort with attempted movement. No focal calf swelling. Functionally, he has been max assist with bed to chair and squat pivot transfers. ASSESSMENT: An 78-year-old white male with the following problems: 1. Left hip intertrochanteric fracture status post intramedullary nailing on 11/04/2018, weightbearing as tolerated. 2. Right brain CVA with premorbid left upper extremity plegia and left lower extremity paresis. 3. Dysphagia, currently on a mechanically altered chopped with nectar thick liquids. 4. History of coronary artery disease with stenting. 5. Hypertension. 6. Hyperlipidemia. 7. Prior tobacco abuse. 8. Deep venous thrombosis prophylaxis. PLAN: The patient is admitted for acute in-hospital inpatient rehabilitation. From a postadmission physician evaluation perspective, there are no relevant changes since the preadmission screening. Please see the above review of prior and current medical and functional conditions and comorbidities. Please see the patient's previous and current functional status. As far as risk of complications, the patient has multiple medical comorbidities as noted above. Initial plan of care involves the interdisciplinary acute inpatient rehabilitation program with goal of maximizing his functional independence, he can hopefully return back to his prior living situation. Measurable functional goals would be for the patient to become modified independent with transfers, mobility, ADLs as well as further assessment with cognition and swallowing as [address] [address] HISTORY AND PHYSICAL Name: FLACO SINGH Room #: 511-P ADM IN M.R.#: [id number] Admission: 11/07/18 Attend Phys: Ulysses Khalil MD Discharge: Date of : 38 Report #: [id number] per speech therapy. We will need to do training with the daughter. The goal is to be maximally independent and to train the daughter and to assess appropriate equipment issues to get him back into the home setting. Prognosis is reasonably good with estimated length of stay probably fairly long as he is at a lower level. Would anticipate probably at least 3 weeks. Potential barriers would include his multiple medical comorbidities and decreased functional status. <ELECTRONICALLY SIGNED> By: Ulysses Khalil MD 11/16/18 1520 1005 [id number] Ulysses Khalil MD /PMT
[2018-11-16 18:39] VITALS: BP 170/60
[2018-11-16 19:10] VITALS: BP 166/72
[2018-11-17 04:46] LABS: ABSOLUTE NEUTROPHILS 5.7 thou/uL (1.4-8.2); BASOPHILS 0.7 % (0.0-2.0); EOSINOPHILS 1.3 % (0.0-3.0); HEMATOCRIT 28.9 % (42.0-52.0); HEMOGLOBIN 10.1 gm/dL (14.0-18.0); LYMPHOCYTES 15.8 % (24.0-44.0); MCH 30.4 pg (26.0-34.0); MONOCYTES 5.5 % (1.0-8.0); PLATELET COUNT 349 thou/uL (150-400); POLYS 76.7 % (36.0-66.0); RBC 3.32 mil/uL (4.50-6.00); RDW 13.1 % (10.5-14.5); WBC 7.5 thou/uL (4.0-11.0)
[2018-11-17 05:21] LABS: CALCIUM 8.4 mg/dL (8.5-10.1); CREATININE 0.6 mg/dL (0.7-1.3); MAGNESIUM 1.8 mg/dL (1.8-2.4); POTASSIUM 3.1 mmol/L (3.5-5.1)
[2018-11-17 17:12] VITALS: BP 159/64
[2018-11-17 19:52] VITALS: BP 165/65
[2018-11-18 07:30] VITALS: BP 162/68
[2018-11-18 19:44] VITALS: BP 165/55
[2018-11-19 19:10] VITALS: BP 149/56
[2018-11-20 07:40] VITALS: BP 164/53
[2018-11-20 18:31] VITALS: BP 144/73
[2018-11-21 06:04] LABS: ABSOLUTE NEUTROPHILS 3.5 thou/uL (1.4-8.2); BASOPHILS 0.7 % (0.0-2.0); EOSINOPHILS 1.9 % (0.0-3.0); HEMATOCRIT 28.8 % (42.0-52.0); LYMPHOCYTES 23.8 % (24.0-44.0); MCH 30.7 pg (26.0-34.0); MCHC 34.7 g/dL (28.0-37.0); MCV 88.6 fL (80.0-100.0); MONOCYTES 8.5 % (1.0-8.0); PLATELET COUNT 329 thou/uL (150-400); POLYS 65.1 % (36.0-66.0); RBC 3.25 mil/uL (4.50-6.00); RDW 13.7 % (10.5-14.5); WBC 5.3 thou/uL (4.0-11.0)
[2018-11-21 06:17] LABS: CALCIUM 8.4 mg/dL (8.5-10.1); CREATININE 0.8 mg/dL (0.7-1.3); MAGNESIUM 1.8 mg/dL (1.8-2.4); POTASSIUM 3.6 mmol/L (3.5-5.1)
[2018-11-21 07:30] VITALS: BP 157/63
[2018-11-21 20:20] VITALS: BP 169/80
[2018-11-22 08:00] VITALS: BP 172/81
[2018-11-22 16:49] VITALS: BP 175/76
[2018-11-22 19:05] VITALS: BP 141/55
[2018-11-23 07:50] VITALS: BP 162/56
[2018-11-23] MEDS ORDERED: HYDROCODON-ACE1 EAC7 PO (08:24)
[2018-11-23] MEDS ORDERED: HYDROCORTISONE30 G9 TOP (08:25)
[2018-11-23] MEDS ORDERED: XARELTO10 MG PO (08:25)
[2018-11-23] MEDS ORDERED: VOLTAREN GEL 1100 G2 TOP ×2 (08:25→11:14)
[2018-11-23] MEDS ORDERED: ZANAFLEX4 MG PO ×2 (08:25→11:14)
[2018-11-23] MEDS ORDERED: CARAFATE 1 GM TA1 G1 PO ×2 (08:25→11:11)
[2018-11-23] MEDS ORDERED: PRINIVIL10 MG PO (11:11)
[2018-11-23] MEDS ORDERED: SENNA8.6 MG PO (11:11)
[2018-11-23] MEDS ORDERED: LIPITOR40 MG PO (11:11)
[2018-11-23] MEDS ORDERED: FAMOTIDINE 20 M20 MG PO (11:11)
[2018-11-23] MEDS ORDERED: CARVEDILOL12.5 MG PO (11:11)
[2018-11-23] MEDS ORDERED: TRAZODONE HCL100 MG PO (11:11)
[2018-11-23] MEDS ORDERED: VOLTAREN GEL 1100 G1 TOP (11:46)
[2018-11-23 12:48] VITALS: BP 162/56
[2018-11-23 12:53] VITALS: BP 162/56
[2018-11-23 14:14] VITALS: BP 162/56
--- NOTE | 2018-11-24 09:36 | PLAN ---
[facility] [place] [address] [address] [place] [address] REHAB UNIT PLAN OF CARE Name: FLACO SINGH Room #: 511-P [facility] IN M.R.#: [id number] Admission: 11/07/18 Attend Phys: Ulysses Khalil MD Discharge: 11/23/18 Date of : 38 Report #: [id number] THIS REPORT FOR: //name// CC: Ulysses Crowley DATE OF SERVICE: 11/10/2018 PROGRESS NOTE/OVERALL PLAN OF CARE SUBJECTIVE: The patient is seen back today in followup. He is in no distress. Last recorded temperature 37.1, pulse 69, respirations 18, blood pressure 148/79. No focal calf swelling. He has been working in therapies with transfers, max assist of 2. Lower extremity dressing is dependent. Continues on a mechanical soft nectar thickened liquid diet. His daughter is very supportive and closely involved. The daughter does have permission to assist the patient with wheelchair transfers while staff members present. Wound care is following along regarding the left heel breakdown. ASSESSMENT: 1. Left hip intertrochanteric fracture status post intramedullary nailing 11/04/2018, weightbearing as tolerated. 2. Right brain cerebrovascular accident with premorbid left upper extremity plegia and left lower extremity paresis. 3. Dysphagia, currently on a mechanically soft with nectar thick liquids. 4. History of coronary artery disease with stenting. 5. Hypertension. 6. Hyperlipidemia. 7. Prior tobacco abuse. PLAN: The overall plan of care is based on the preadmission screen, post-admission physician evaluation, and information garnered from therapy assessments. 1. Estimated length of stay is going to be fairly long probably at least 3 weeks pending progress. 2. Medical prognosis is reasonably good. 3. Anticipated interventions includes the interdisciplinary acute rehab program. 4. Anticipated functional outcomes would be to try to further improve with basic transfers, mobility, activities of daily living as well as his swallowing to try to achieve a point where the family can care for him at home again. 5. Discharge destination is home with family. 6. Expected therapy by discipline includes physical therapy, [place] [address] REHAB UNIT PLAN OF CARE Name: FRANCISCOFLACO Room #: 511-P [facility] IN M.R.#: [id number] Admission: 11/07/18 Attend Phys: Ulysses Khalil MD Discharge: 11/23/18 Date of : 38 Report #: [id number] speech 1 hour per day each 5 days a week throughout the duration of the acute inpatient rehabilitation stay. <ELECTRONICALLY SIGNED> By: Ulysses Khalil MD 11/24/18 0936 1246 1911 Ulysses Khalil MD /[facility]
== END 2018-11-23 14:30 | disposition home health service (06) | DRG 535 ==
LOC: ENTRNSPT 11-23 13:32 → EDTRNSPTSTS 11-23 13:34
PROVIDERS: Nurse Practitioner; ADMIT Physical Medicine & Rehabilitation
DX: S72.142A Displaced intertrochanteric fracture of left femur, initial encounter for closed fracture (principal); L89.623 Pressure ulcer of left heel, stage 3; I69.354 Hemiplegia and hemiparesis following cerebral infarction affecting left non-dominant side; E87.0 Hyperosmolality and hypernatremia; R13.10 Dysphagia, unspecified; I10 Essential (primary) hypertension; E78.5 Hyperlipidemia, unspecified; R26.81 Unsteadiness on feet; K59.00 Constipation, unspecified; R73.9 Hyperglycemia, unspecified; I69.322 Dysarthria following cerebral infarction; I25.10 Atherosclerotic heart disease of native coronary artery without angina pectoris; M62.838 Other muscle spasm; Z96.641 Presence of right artificial hip joint; E87.5 Hyperkalemia; F03.90 Unspecified dementia, unspecified severity, without behavioral disturbance, psychotic disturbance, mood disturbance, and anxiety; F17.210 Nicotine dependence, cigarettes, uncomplicated; W18.39XA Other fall on same level, initial encounter; Y93.89 Activity, other specified; Y92.89 Other specified places as the place of occurrence of the external cause; Y99.8 Other external cause status; Z95.5 Presence of coronary angioplasty implant and graft; Z87.81 Personal history of (healed) traumatic fracture; Z98.49 Cataract extraction status, unspecified eye; Z79.82 Long term (current) use of aspirin; Z79.1 Long term (current) use of non-steroidal anti-inflammatories (NSAID); Z79.899 Other long term (current) drug therapy; Z91.040 Latex allergy status; Z82.49 Family history of ischemic heart disease and other diseases of the circulatory system
CPT/HCPCS: 10112

== ENCOUNTER 2018-12-24 13:31 | Emergency (ER) | payer OTHER ==
[~2018-12-24] VITALS: Ht 172.7 cm; Wt 70.3 kg
[~2018-12-24 13:31] MED LIST changes: +HYDROCODON-ACE1 EAC7 PO; +HYDROCORTISONE30 G9 TOP; +LEVAQUIN 500 M500 M2 PO; +SENNA8.6 MG PO; +VOLTAREN GEL 1100 G1 TOP; +XARELTO10 MG PO; +ZANAFLEX4 MG PO
[2018-12-24 14:23] LABS: ABSOLUTE NEUTROPHILS 4.2 thou/uL (1.4-8.2); BASOPHILS 1.3 % (0.0-2.0); EOSINOPHILS 1.7 % (0.0-3.0); HEMATOCRIT 45.3 % (42.0-52.0); HEMOGLOBIN 15.3 gm/dL (14.0-18.0); LYMPHOCYTES 23.2 % (24.0-44.0); MCH 30.4 pg (26.0-34.0); MCHC 33.8 g/dL (28.0-37.0); MCV 89.8 fL (80.0-100.0); MONOCYTES 6.5 % (1.0-8.0); PLATELET COUNT 284 thou/uL (150-400); POLYS 67.3 % (36.0-66.0); RBC 5.04 mil/uL (4.50-6.00); RDW 13.8 % (10.5-14.5); WBC 6.3 thou/uL (4.0-11.0)
[2018-12-24 14:28] LABS: ANION GAP 10 mmol/L (7-16); BUN 14 mg/dL (7-18); CALCIUM 9.5 mg/dL (8.5-10.1); CHLORIDE 103 mmol/L (98-107); CO2 29 mmol/L (21-32); CREATININE 0.7 mg/dL (0.7-1.3); GLUCOSE 115 mg/dL (74-106); POTASSIUM 3.6 mmol/L (3.5-5.1); SODIUM 142 mmol/L (136-145)
--- NOTE | 2018-12-24 14:36 | EKG ---
[place] [address] [place] [address] ELECTROCARDIOGRAM REPORT Name: FLACO SINGH Room #: REG JYOTI [place]#: [id number] ������������������ Admission: 12/24/18 ������������������ Attend Phys: Discharge: ������������������ Date of : 38 Report #: [id number] ����������������������������������������������������������������� [id number] THIS REPORT FOR: //name// [facility] ED Test Date: 2018-12-24 Test Time: 13:37:42 Pat Name: FLACO SINGH Department: Room: Gender: Sports Equipment Racker: amadacaleb : 1940 Requested By: Elisa Daley Order Number: [id number] MD: Maurice Cristobal Measurements Intervals Watson Rate: 58 P: 48 [place]: 204 QRS: -46 QRSD: 146 T: 168 QT: 434 QTc: 427 Interpretive Statements Sinus rhythm Left bundle branch block Compared to ECG 11/03/2018 13:44:03 Ventricular premature complex(es) no longer present Electronically Signed On 12-24-2018 14:36:02 CDT by Maurice Cristobal [email or web address] ��������������������������������������������� <ELECTRONICALLY SIGNED> ���������������������������������������� By: Maurice Cristobal MD, [facility] ��������������������������������������������� 12/24/18 1436 1337 1337 Maurice Cristobal MD, FACC /EPI
[2018-12-24 14:38] LABS: DIRECT BILIRUBIN 0.2 mg/dL (<0.1-0.3); LIPASE 109 U/L (73-393); SGOT 23 U/L (15-37); SGPT 36 U/L (30-65); TOTAL BILIRUBIN 0.8 mg/dL (<0.1-1.0); TOTAL PROTEIN 7.7 g/dL (6.4-8.2); TROPONIN-I <0.06 ng/mL (<0.06)
[2018-12-24 15:17] VITALS: BP 156/80
== END 2018-12-24 15:43 | disposition home or self-care (01) ==
LOC: ER 13:31
PROVIDERS: Emergency Medicine
DX: R07.89 Other chest pain (principal); I10 Essential (primary) hypertension; E78.5 Hyperlipidemia, unspecified; I25.10 Atherosclerotic heart disease of native coronary artery without angina pectoris; F03.90 Unspecified dementia, unspecified severity, without behavioral disturbance, psychotic disturbance, mood disturbance, and anxiety; Z96.651 Presence of right artificial knee joint; Z96.641 Presence of right artificial hip joint; Z96.612 Presence of left artificial shoulder joint; Z98.42 Cataract extraction status, left eye; Z86.73 Personal history of transient ischemic attack (TIA), and cerebral infarction without residual deficits; Z95.1 Presence of aortocoronary bypass graft; Z95.2 Presence of prosthetic heart valve; Z98.890 Other specified postprocedural states; Z91.040 Latex allergy status; Z87.891 Personal history of nicotine dependence

== ENCOUNTER 2020-04-26 09:52 | Inpatient (IN) | payer OTHER ==
[~2020-04-26] VITALS: Ht 172.7 cm; Wt 111.1 kg
[2020-04-26] VITALS (24 sets, daily range): BP systolic 92–162; BP diastolic 47–85
[2020-04-26 10:14] LABS: URINE BILIRUBIN NEGATIVE (Negative); URINE BLOOD 1+ (Negative); URINE CLARITY CLEAR; URINE COLOR YELLOW; URINE GLUCOSE-RANDOM* TRACE (Negative); URINE KETONES NEGATIVE (Negative); URINE LEUKOCYTES-REFLEX NEGATIVE (Negative); URINE NITRITE-REFLEX NEGATIVE (Negative); URINE PROTEIN (DIPSTICK) 2+ (Negative); URINE SPECIFIC GRAVITY 1.025 (1.005-1.035)
[2020-04-26 10:14] LABS: ABSOLUTE NEUTROPHILS 11.7 thou/uL (1.4-8.2); BASOPHILS 0.2 % (0.0-2.0); HEMATOCRIT 46.5 % (42.0-52.0); HEMOGLOBIN 15.7 gm/dL (14.0-18.0); LYMPHOCYTES 6.1 % (24.0-44.0); MCHC 33.9 g/dL (28.0-37.0); MCV 88.6 fL (80.0-100.0); MONOCYTES 3.9 % (1.0-8.0); PLATELET COUNT 295 thou/uL (150-400); POLYS 89.8 % (36.0-66.0); RBC 5.24 mil/uL (4.50-6.00); RDW 13.3 % (10.5-14.5)
[2020-04-26 10:31] LABS: CALCIUM 9.4 mg/dL (8.5-10.1)
--- NOTE | 2020-04-26 10:32 | NUR ---
PT FAMILY REPORTS THAT HE HAS NOT GOTTEN ANY OF HIS MEDICATIONS THIS AM. DAUGHTER WORRIED ABOUT BP MEDS AT THIS TIME
[2020-04-26 10:33] LABS: POTASSIUM 2.9 mmol/L (3.5-5.1)
[2020-04-26] MEDS ORDERED: HYDRALAZINE 10M10 MG PO (10:38)
[2020-04-26 10:39] LABS: ALBUMIN 2.8 g/dL (3.4-5.0); DIRECT BILIRUBIN 0.2 mg/dL (<0.1-0.2); TOTAL BILIRUBIN 1.2 mg/dL (0.2-1.0); TOTAL PROTEIN 6.9 g/dL (6.4-8.2); TROPONIN-I 0.21 ng/mL (<0.06)
[2020-04-26 10:41] LABS: BACTERIA-REFLEX 1-9 Few /HPF (None Seen); CASTS None Seen /LPF (None Seen); CRYSTALS None Seen /LPF (None Seen); MUCUS >6 Heavy strn/LPF (None Seen); SQUAMOUS 0-3 Few /LPF (0-3); URINE RBC 0-2 Rare /HPF (0-2); URINE WBC-REFLEX 0-5 Rare /HPF (0-5)
[2020-04-26 11:23] LABS: BE(vivo) 3.2 mmol/L (-2 to +3); HCO3 23.6 mmol/L (22.0-26.0); PCO2 26.3 mmHg (35.0-45.0); PO2 73.8 mmHg (80.0-100.0); pH 7.571 (7.360-7.450); sO2 96.7 % (92.0-98.0)
--- NOTE | 2020-04-26 12:36 | NUR ---
PT INTUBATED BY DR. HARVEY ETOMIDATE @1231 SUCC @ 1232 ET SIZE 8.0- +COLOR CHANGE.
[2020-04-26 13:00] LABS: APTT 27.2 Seconds (24.5-32.8); FIBRINOGEN 359.5 mg/dL (210-360); INR 1.1; PROTIME 11.5 Seconds (9.3-11.4)
--- NOTE | 2020-04-26 13:37 | NUR ---
VAT PLACED A TL CL IN RT IJ FOR SEPIS/COVID. PLEASE SEE NI FOR DETAILS
[2020-04-26 14:21] LABS: BE(vivo) 0.4 mmol/L (-2 to +3); HCO3 23.9 mmol/L (22.0-26.0); PCO2 35.5 mmHg (35.0-45.0); PO2 100.5 mmHg (80.0-100.0); pH 7.446 (7.360-7.450); sO2 97.8 % (92.0-98.0)
--- NOTE | 2020-04-26 19:50 | NUR ---
PT ARRIVED FROM ED AT 1905. REPORT GIVEN TO TRUCK GREASER NURSE AT BEDSIDE. PT VENTILATED AND SEDATED. ONE RESTRAINT IN PLACE. DENIS. SPOKE WITH DAUGHTER WHO IS DPOA, UPDATED AND EDUCATED HER. THIS IS NOT A SAFE FACILITY FOR STAFF OR PATIENTS.
--- NOTE | 2020-04-26 23:25 | NUR ---
spoke with daughter, gave update and passcode. daughter states that pt came with only 1 hearing aid, very hard of hearing without them. very pleasant and cooperative.
[2020-04-27] VITALS (113 sets, daily range): BP systolic 89–179; BP diastolic 40–106
[2020-04-27 04:43] LABS: ABSOLUTE NEUTROPHILS 8.2 thou/uL (1.4-8.2); BASOPHILS 0.3 % (0.0-2.0); HEMATOCRIT 38.2 % (42.0-52.0); LYMPHOCYTES 6.2 % (24.0-44.0); MCH 29.9 pg (26.0-34.0); MCHC 32.8 g/dL (28.0-37.0); MCV 91.2 fL (80.0-100.0); MONOCYTES 3.9 % (1.0-8.0); POLYS 89.6 % (36.0-66.0); RBC 4.19 mil/uL (4.50-6.00); RDW 14.4 % (10.5-14.5); WBC 9.1 thou/uL (4.0-11.0)
[2020-04-27 04:51] LABS: HEMOGLOBIN 12.5 gm/dL (14.0-18.0); PLATELET COUNT 217 thou/uL (150-400)
--- NOTE | 2020-04-27 04:54 | HC ---
[facility] [place] [address] CONSULTATION Name: FLACO SINGH Room #: 236-P ADM IN M.R.#: [id number] Admission: 04/26/20 Attend Phys: Alma Mccann Discharge: Date of : 38 Report #: [id number] THIS REPORT FOR: cc: Popeye Crowley Kent DO Barry, Joseph W. MD ~ DATE OF SERVICE: 04/26/2020 INFECTIOUS DISEASE CONSULTATION ATTENDING PHYSICIAN: Dr. Mccann. REASON FOR EVALUATION: Severe pneumonitis complicated by respiratory failure, COVID positive. HISTORY OF PRESENT ILLNESS: Chart reviewed, patient examined. This is an 80-year-old gentleman with extensive medical history, has previous stroke, has hypertension and known coronary artery disease. Apparently lives with his family, although he is bedridden at home. He is nonverbal. Apparently he had experienced a cough for 4-5 days. It was noted to be family members with coronavirus infection. Due to progressive difficulty breathing, the family called EMS. He was brought with a fairly urgent manner. He was initiated on BiPAP and then subsequently he has been intubated. He is not really responsive at this point, maintained on ventilatory support, FiO2 100%. Initial chest x-ray showed development of diffuse mixed alveolar interstitial infiltrates throughout the lungs bilaterally. Sodium was elevated at 157. Blood sugar was 315. Urinalysis was otherwise unremarkable. Lactic acid elevated at 3.7, repeat was 2.5. ABGs: pH 7.571, pCO2 of 26.3, pO2 of 73.8 that was on BiPAP 100%. He was confirmed to have COVID antigen test positive. Influenza was negative. He is empirically started on cefepime and vancomycin. ALLERGIES: LATEX. CURRENT MEDICATIONS: Include famotidine, dexamethasone, enoxaparin, midazolam as needed, cefepime. 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 SOCIAL HISTORY: Former smoker. No ethanol. No illicit drug use. FAMILY HISTORY: Noncontributory. REVIEW OF SYSTEMS: Unobtainable. [facility] [address] [place] [address] CONSULTATION Name: FLACO SINGH Room #: 236-P [facility] IN M.R.#: [id number] Admission: 04/26/20 Attend Phys: Alma Mccann Discharge: Date of : 38 Report #: [id number] PHYSICAL EXAMINATION: GENERAL: He appears chronically ill and undernourished. He is struggling significantly. He is intubated. In addition to the ET, he has an OG tube in place. VITAL SIGNS: Temperature 99.3, pulse 81, respirations 24, it is down from the 40s, BP 111/67. HEENT: Normocephalic. LUNGS: Scattered coarse breath sounds. There is some transmitted from the upper airways. HEART: Distant, appears to be regular. I appreciate a murmur. ABDOMEN: No apparent peritoneal signs. GENITOURINARY AND RECTAL: Deferred. LABORATORY DATA: Chest x-ray as described above, mixed alveolar and interstitial infiltrates. Initial CBC: White count of 13.0, H and H 15.7 and 46.5, platelets of 295. Electrolytes: Sodium 157, potassium 3.9, chloride 117, bicarbonate 25, anion gap of 15, BUN and creatinine 30 and 1.0. AST of 76, ALT of 153. Albumin of 2.8. Urinalysis, 0-5 white cells. ABGs: pH 7.571, pCO2 of 26.3 and pO2 of 73.8 on 100% BiPAP. ASSESSMENT AND PLAN: COVID-19 infection, complicated by pneumonitis, which is severe, as well as respiratory failure, now requiring high level support with intubation and mechanical ventilation. We will continue empiric therapy with antibacterials. It certainly raises question of secondary bacterial pneumonitis in this setting. It is difficult to ascertain an onset of his illness. Continue corticosteroids. We would be concerned about secondary bacterial focus of infection as well. We will check abdominal ultrasound to exclude biliary with elevated LFTs. He appears to be significantly malnourished at this point. Certainly, his overall prognosis appears guarded. <ELECTRONICALLY SIGNED> By: Silvestre Key MD 04/27/20 0454 1634 10 Silvestre Key MD /nt
[2020-04-27 05:40] LABS: CALCIUM 8.1 mg/dL (8.5-10.1); CREATININE 0.9 mg/dL (0.7-1.3); POTASSIUM 3.3 mmol/L (3.5-5.1)
--- NOTE | 2020-04-27 06:51 | NUR ---
PT TOLERATING VENT AND TURNS WELL. OCCASIONALLY TACHYPNEIC. MARGINAL UOP. DISCUSSED STATUS/ORDERS WITH DR. CARTWRIGHT
[2020-04-27 11:36] LABS: BE(vivo) -1.8 mmol/L (-2 to +3); HCO3 21.2 mmol/L (22.0-26.0); PCO2 31.2 mmHg (35.0-45.0); PO2 126.6 mmHg (80.0-100.0); sO2 98.7 % (92.0-98.0)
[2020-04-27 13:05] LABS: CREATININE 0.9 mg/dL (0.7-1.3); POTASSIUM 3.9 mmol/L (3.5-5.1)
--- NOTE | 2020-04-27 14:39 | NUR ---
PT INTUBATED AND SEDATED. FIO2 TITRATED DOWN BY RT. LEVOPHED GTT STARTED FOR HYPOTENSION. CVP/SEPSIS PROTOCAL INIATED. TUBE BEED STARTED. PT AFEBRILE, OLIGUIC, NO BM, TOLERATING TUBE FEEDINGS WITH RESIDUALS WNL. NGT CONFIRMED BY XRAY. PT AND FAMILY HAVE BEEN UPDATED AND EDUCATED ON PT CONDITION AND POC. PT SLOWLY PROGRESSING TOWARDS POC.
[2020-04-28] VITALS (114 sets, daily range): BP systolic 84–162; BP diastolic 39–67
[2020-04-28 03:04] LABS: ALBUMIN 1.8 g/dL (3.4-5.0); CALCIUM 7.9 mg/dL (8.5-10.1); CREATININE 0.8 mg/dL (0.7-1.3); DIRECT BILIRUBIN 0.1 mg/dL (<0.1-0.2); PHOSPHORUS 1.9 mg/dL (2.6-4.7); POTASSIUM 3.1 mmol/L (3.5-5.1); TOTAL BILIRUBIN 0.4 mg/dL (0.2-1.0)
[2020-04-28 03:14] LABS: ABSOLUTE NEUTROPHILS 10.5 thou/uL (1.4-8.2); BASOPHILS 0.1 % (0.0-2.0); HEMATOCRIT 36.3 % (42.0-52.0); LYMPHOCYTES 4.3 % (24.0-44.0); MCH 29.7 pg (26.0-34.0); MCHC 33.1 g/dL (28.0-37.0); MCV 89.7 fL (80.0-100.0); PLATELET COUNT 226 thou/uL (150-400); POLYS 92.6 % (36.0-66.0); RBC 4.05 mil/uL (4.50-6.00); RDW 14.3 % (10.5-14.5); WBC 11.4 thou/uL (4.0-11.0)
--- NOTE | 2020-04-28 04:38 | NUR ---
PATIENT INTUBATED/SEDATED. VSS WITH LOW DOSE DOPAMINE, AFEBRILE L/S COARSE/DIM, SUCTIONING MODERATE THICK SMITH SECRETIONS, FiO2 50%, PEEP INCREASED TO 8 BY RT. UOP 650ML DARK MARKIE WITH SEDIMENTS. TF INFUSING @10ML/HR, NO GASTRIC RESIDUAL, TOLARATING TF WELL. ABDOMEN ROUND/SOFT. NO BM OVERNIGHT.
--- NOTE | 2020-04-28 08:07 | NUR ---
Assummed care from the night nurse Marce PERDOMO at 0700. Patient placed on sedation vacation at 0805.
--- NOTE | 2020-04-28 08:21 | NUR ---
Recommend to change enteral formula to vital AF 1.2 to reach final goal of 65ml/hr.
--- NOTE | 2020-04-28 09:36 | NUR ---
ASSUMED CARE OF PT AT 0700 DR. CARTWRIGHT AT BEDSIDE AT 0715, NO NEW ORDERS GIVEN SPOKE TO PT DAUGHTER AT 0935 AND UPDATED HER PER POC. SHE WOULD LIKE TO HAVE A DOCTOR CALL HER. SHE ALSO WANTED TO KNOW WHY HE HAD ONLY BEEN GIVEN ONE DOSE OF THE REMDESIVERE AND IF HE WAS GOING TO BE GETTING THE IVERMECTIN. SAID SHE WILL CALL BACK THIS EVENING TO CHECK ON HIM AGAIN.
--- NOTE | 2020-04-28 14:34 | NUR ---
ASSESSMENT: CM REVIEWED CHART. PT WAS ADMITTED TO THE ICU AND IS COVID POSITIVE. PT REMAINSIN ENHANCED ISOLATION. PT WAS ADMITTED FROM HOME WHERE HE LIVES WITH HIS DAUGHTER AND HER WHO ALSO TESTED POSITIVE. PT HAS A HX OF CVA, LEFT SIDED HEMIPARESIS, DYSPHAGIA AND IS NORMALLY WHEELCHAIR BOUND. DAUGHTER REPORTS THAT HE CAN STAND AND PIVOT. PT IS CURRENTLY ON THE VENT. DAUGHTER REPORTS THAT PT HAS BEEN TO [facility] IN THE PAST AND ALSO HAS HAD [facility]. SHE REPORTS SHE KNOWS THINGS ARE TOO EARLY TO TELL BUT DOES WANT TO SEE IF HE CAN BE EVALUATED FOR 5N AGAIN IF HE GETS BETTER. CM WILL CONTINUE TO FOLLOW TO ASSIST NEEDED.
[2020-04-29] VITALS (60 sets, daily range): BP systolic 96–163; BP diastolic 39–82
[2020-04-29 05:04] LABS: ALBUMIN 1.8 g/dL (3.4-5.0); CALCIUM 7.8 mg/dL (8.5-10.1); CREATININE 0.6 mg/dL (0.7-1.3); DIRECT BILIRUBIN 0.3 mg/dL (<0.1-0.2); PHOSPHORUS 2.3 mg/dL (2.6-4.7); POTASSIUM 3.4 mmol/L (3.5-5.1); TOTAL BILIRUBIN 0.6 mg/dL (0.2-1.0); TOTAL PROTEIN 4.8 g/dL (6.4-8.2)
[2020-04-29 05:14] LABS: HEMATOCRIT 36.3 % (42.0-52.0); HEMOGLOBIN 12.2 gm/dL (14.0-18.0); MCH 29.6 pg (26.0-34.0); MCHC 33.5 g/dL (28.0-37.0); MCV 88.5 fL (80.0-100.0); RBC 4.1 mil/uL (4.50-6.00); RDW 13.8 % (10.5-14.5); WBC 10.9 thou/uL (4.0-11.0)
--- NOTE | 2020-04-29 09:30 | HC ---
[facility] [place] [address] CONSULTATION Name: FLACO SINGH Room #: 236-P ADM IN M.R.#: [id number] Admission: 04/26/20 Attend Phys: Alma Mccann Discharge: Date of : 36 Report #: [id number] THIS REPORT FOR: cc: Popeye Crowley Kent DO Lundgren, Craig H. MD [facility] ~ DATE OF SERVICE: 04/27/2020 REASON FOR CONSULTATION: Troponin elevation. HISTORY OF PRESENT ILLNESS: The patient is an 79-year-old gentleman who is a patient of Dr. Sam. 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 He has a history of known coronary artery disease, COPD, dyslipidemia and hypertension. He saw Dr. Ward in the office in 01/2020 and was doing well. No medicine changes were made. EF 45%. Now presents with fevers and respiratory distress. BiPAP was instituted and then subsequently intubated. Initially was severely hypoxemic. COVID pneumonia was confirmed. He has seen multiple consultants. In this setting, a troponin was drawn and elevated at 0.21. ProBNP of 1384. I was asked to see him in this regard. He is currently intubated and sedated. He is currently off of pressors. ALLERGIES: He is allergic to LATEX. MEDICATIONS: Include aspirin 81 mg daily, Lipitor 40 mg daily, carvedilol 12.5 mg twice daily, Pepcid, hydralazine, lisinopril 20 mg twice daily, Zanaflex 4 mg as needed, Desyrel 100 mg daily. PAST MEDICAL HISTORY: Medical records have been reviewed and include a history of coronary artery disease, hypertension, dyslipidemia, stroke, middle cerebral artery stroke, chronic back pain, COPD, dysarthria. SURGICAL HISTORY: His coronary artery disease with angioplasty and stent placement, shoulder surgery, knee surgery, total hip arthroplasty. SOCIAL HISTORY: He is a pack a day smoker, quit in 2019. FAMILY HISTORY: Unremarkable for premature coronary artery disease. REVIEW OF SYSTEMS: All systems negative except as that noted above. PHYSICAL EXAMINATION: GENERAL: Reveals an intubated gentleman who is comatose. VITAL SIGNS: Blood pressure is 105/58, heart rate is 65 and regular, [facility] [address] [place] [address] CONSULTATION Name: FLACO SINGH Room #: 236-P [facility] IN M.R.#: [id number] Admission: 04/26/20 Attend Phys: Alma Mccann Discharge: Date of : 38 Report #: [id number] temperature is 99 degrees, 146 pounds. HEENT: There are neither xanthelasma, subcutaneous xanthomata, oral mucosal or digital cyanosis or kyphoscoliosis present. CHEST: Reveals diminished breath sounds at both bases. CARDIAC: Regular rate and rhythm with normal S1, S2. ABDOMEN: Soft. EXTREMITIES: Without cyanosis or clubbing. Radial pulses are 2+. NEUROLOGIC: He is with hemiparesis. LABORATORY DATA: Sodium 157, potassium 3.3, creatinine 0.9, glucose 313. Troponin 0.18. White count 9.1, hemoglobin 12, hematocrit 38, platelet count 217. COVID positive. EKG, sinus rhythm without ST or T-wave changes. First degree AV block. IMPRESSION: 1. COVID pneumonia with hypoxemic respiratory failure. 2. Previous cerebrovascular accident with hemiparesis; significant neurologic sequelae, residual neurologic sequelae. 3. Small troponin elevation. 4. Mild ischemic cardiomyopathy, ejection fraction 45%. 5. Hypertension. 6. Chronic obstructive pulmonary disease. 7. Dyslipidemia. RECOMMENDATIONS: 1. Small troponin elevation in the setting of COVID, sepsis, hypoxemia with respiratory failure and known coronary artery disease is not unexpected. The differential is broad, but I suspect predominantly represents supply demand mismatch in the setting of severe hypoxemia and respiratory failure. EKG is without ischemic changes. 2. Resume carvedilol, low dose aspirin and lisinopril as hemodynamics allow. 3. Supportive care. He is a very high risk group with COVID pneumonia and sepsis. No further cardiovascular testing is needed at this point. I will be available as issues or problems arise. <ELECTRONICALLY SIGNED> By: Maurice Cristobal MD, [facility] 04/29/20 0930 [id number] 1125 Maurice Cristobal MD, FAC /nt
--- NOTE | 2020-04-29 11:46 | EKG ---
[address] [place] [address] ELECTROCARDIOGRAM REPORT Name: FLACO SINGH Room #: 236-P ADM IN M.R.#: [id number] Admission: 04/26/20 Attend Phys: Alma Mccann Discharge: Date of : 38 Report #: [id number] [facility] Test Date: 2020-04-29 Test Time: 10:13:17 Pat Name: FLACO SINGH Department: Room: 236 P Gender: M Avionics Integration Engineer: Naveed GARCIA : 1940 Requested By: Martin Chang Order Number: [id number] MD: Rick Jo Measurements Intervals [place] Rate: 52 P: -70 NV: 88 QRS: -33 QRSD: 132 T: -87 QT: 538 QTc: 501 Interpretive Statements Sinus or ectopic atrial rhythm Short NV interval Nonspecific intraventricular conduction delay Abnormal T, consider ischemia, inferior leads Compared to ECG 12/24/2018 13:37:42 Ectopic atrial rhythm now present Short NV interval now present Intraventricular conduction delay now present T-wave abnormality now present Possible ischemia now present Sinus rhythm no longer present Left bundle-branch block no longer present Electronically Signed On 04-29-2020 11:46:29 AD COMPOSITOR by Rick Jo [email or web address] <ELECTRONICALLY SIGNED> By: Rick Jo MD, FACC 04/29/20 1146 1013 1013 Rick Jo MD, [facility] /EPI
[2020-04-29 12:43] LABS: MAGNESIUM 2.1 mg/dL (1.8-2.4)
--- NOTE | 2020-04-29 18:26 | NUR ---
PT SEEN TODAY BY / PT NOT PROGRESSING TOWARDS DISCHARGE, PT STARTED BACK ON TUBE FEEDING VITAL AF GOAL OF 65, NO RESIDUALS CURRENTLY AT 35. SUFFICIENT URINE OUTPUT >2L, VERSED/PROPOFOL FOR SEDATION, DOPAMINE FOR HR/MAP. POTASSIUM REPLACED THIS MORNING, CURRENTLY AT NORMAL LEVEL. D5KCL INFUSING PER ORDER. PT'S VENT SETTING CHANGED BY RT. NO SIGNIFICANT CHANGES BESIDES TITRATION OF PROPOFOL AND INCREASE OF DOPAMINE. PT'S HR GRAEDUALLY LESSENING FROM 50s TO 40s. WHEN RN WALKED IN THE MORNING, PT'S PIV RA WAS SWOLLEN/ERYTHEMA, ATTACHED WAS ASCORBIC ACID/FLUSH BAG. RN DC'D AND SELINA BACK REST OF FLUID GOING IN. CVP IS BEING MONITORED. FLUSHBAG CHANGED, TRANSDUCER ZEROED. 0700 GABE CALLED FOR UPDATE, RN COULD NOT BE PRESENT AT THAT TIME, 1057 RN CALLED BACK PROVIDED UPDATE REGARDING CURRENT CLINICAL PICTURE, STATED PT IS CURRENTLY IN CRITICAL STATUS IN THE ICU AND BEING PROVIDED MEDICATION/VENTILATION TO SUPPORT VITAL SIGNS, TALKED ABOUT THE ABOVE FINDINGS. REASSURED THAT PT IS BEING MONITORED CLOSELY AND RN WILL INTERVENE WITH [employer] MEMBERS NECESSARY, GABE VERBALIZED UNDERSTANDING AND GRATITUDE. 1700 - GABE CALLED FOR UPDATE, TALKED ABOUT MEDICATION AND VENT SETTING CHANGES, TOLD TO CALL FOR UPDATES ANY TIME, REMINDED PT THAT RN WILL CALL IF THERE ARE OTHER CHANGES
--- NOTE | 2020-04-29 22:41 | NUR ---
Pt having persistent bradycardia with HR<40. Cardiology paged, Dr Jo gave order to titrate dopamine to keep HR>40 and hold carvedilol. Will be seen by the doctor in the AM.
[2020-04-30] VITALS (123 sets, daily range): BP systolic 71–162; BP diastolic 30–110
[2020-04-30 05:59] LABS: HEMATOCRIT 38.6 % (42.0-52.0); HEMOGLOBIN 12.8 gm/dL (14.0-18.0); MCH 29.2 pg (26.0-34.0); MCV 88.4 fL (80.0-100.0); RBC 4.37 mil/uL (4.50-6.00); WBC 10.6 thou/uL (4.0-11.0)
[2020-04-30 06:06] LABS: ALBUMIN 1.7 g/dL (3.4-5.0); CALCIUM 7.9 mg/dL (8.5-10.1); CREATININE 0.6 mg/dL (0.7-1.3); DIRECT BILIRUBIN 0.3 mg/dL (<0.1-0.2); TOTAL BILIRUBIN 0.5 mg/dL (0.2-1.0)
--- NOTE | 2020-04-30 09:25 | NUR ---
SPOKE WITH PATIENT'S DAUGHTER, GABE, OVER THE PHONE FROM [phone] AND SHE WAS UPDATED AND EDUCATED ON THE PATIENT'S CONDITION AND PLAN OF CARE.
[2020-04-30 14:59] LABS: BE(vivo) -2.1 mmol/L (-2 to +3); HCO3 20.4 mmol/L (22.0-26.0); PCO2 28.6 mmHg (35.0-45.0); PO2 65.4 mmHg (80.0-100.0); pH 7.471 (7.360-7.450); sO2 94.4 % (92.0-98.0)
--- NOTE | 2020-04-30 21:11 | NUR ---
Talked to daughter-Nancy, at 2024, updated her about pt's condition. All questions regards to sedation and percentage of oxygen that patient is on updated. Will continue to monitor.
[2020-05-01] VITALS (94 sets, daily range): BP systolic 76–140; BP diastolic 33–60
[2020-05-01 06:33] LABS: HEMATOCRIT 31.6 % (42.0-52.0); MCH 30.6 pg (26.0-34.0); MCHC 34.4 g/dL (28.0-37.0); RBC 3.55 mil/uL (4.50-6.00); RDW 14.4 % (10.5-14.5); WBC 10.3 thou/uL (4.0-11.0)
[2020-05-01 06:35] LABS: HEMOGLOBIN 10.8 gm/dL (14.0-18.0)
[2020-05-01 06:45] LABS: CALCIUM 7.5 mg/dL (8.5-10.1); CREATININE 0.5 mg/dL (0.7-1.3); POTASSIUM 3.6 mmol/L (3.5-5.1)
--- NOTE | 2020-05-01 08:09 | NUR ---
Continue TF at goal 65ml/hr. Needs Phos replaced, low for 3 days
--- NOTE | 2020-05-01 12:32 | NUR ---
CM CONTACTED PT'S DTR, GABE, TO OFFER EMOTIONAL SUPPROT AND EMPATHETIC LISTENING. GABE STATED SHE FEELS "ANXIOUS AND IS HOPING FOR HEALING." GABE STATED SHE FEELS HELPLESS B/C "WE CANT BE THERE." GABE STATED SHE AND HER SPOUSE HAS CARED FOR PT FOR THE LAST 2 YEARS. GABE WANTS PT TO RTRN HOME W/HH. PT HAS HX W/ACHCS AND THAT IS HERE PREFERENCE, IF PT DOES NOT QUALIFY FOR ARU ON 5N. GABE STATED THE RN HAVE BEEN GOOD ABOUT CALLING FAMILY AND KEEPING THEM UPDATED AND DENIES HAVING QUESTIONS OR CONCERNS.
--- NOTE | 2020-05-01 13:58 | NUR ---
0745-ASSUMED CARE OF PT EARLIER. PT PRONED W ASSIST X4.ALL [place] PROMINENCES PADDED,PILLOWS TO CHEST & HIPS.ALL EKG LEADS PLACED ON BACK.NOT LYING ON ANY TUBES W HIS FACE.PT TOD WELL W HIS SATS STAYING >.98% BUT BECAME TACYPNIC (RR UP RO 50'S) & TACHYCARDIC. PROPOFOL TITRATED UP TO 50MCG/KG/MIN. VERSED GTT TITRATED TO 6MG/HR.RR & HR DOWN THERE p.--vw
--- NOTE | 2020-05-01 21:54 | NUR ---
Pt care assumed at 1915. Pt sedated on Propofol and Versed, does not withdraw or move spontaneously when sedation lightened. Pt desaturated down to 87% when turned to left side at 1999; FiO2 titrated up from 45% to 55% to keep sat > 92%. Pt initially on Dopamine at 2 mcg/kg/min at 1900, but heart rate and BP remain low. At 1930 Dopamine titrated up to 5 mcg/kg/min. BP within parameters, heart rate still bradycardic at 45-48.
[2020-05-02] VITALS (84 sets, daily range): BP systolic 74–147; BP diastolic 21–67
[2020-05-02 06:09] LABS: HEMATOCRIT 38.9 % (42.0-52.0); HEMOGLOBIN 12.6 gm/dL (14.0-18.0); MCH 29.3 pg (26.0-34.0); MCHC 32.4 g/dL (28.0-37.0); MCV 90.5 fL (80.0-100.0); RBC 4.3 mil/uL (4.50-6.00); RDW 14.5 % (10.5-14.5); WBC 13.2 thou/uL (4.0-11.0)
--- NOTE | 2020-05-02 06:36 | NUR ---
Pt has remained stable overnight with help of Dopamine gtt to maintain blood pressure and heart rate. No progress toward goals -- remains sedated on vent with pressure control ventilation, AC 14, 50% FiO2 and peep 12. Minimal secretions suctioned from ET tube or oral cavity. Pt sometimes desaturates to high 80's with turns. Monitor remains sinus gio despite Dopamine, rates 45-55. Tolerating tube feeding well, no residuals. Urine output 2700 cc for this shift, but pt still has 1-2+ generalized edema.
[2020-05-02 06:38] LABS: ALBUMIN 1.5 g/dL (3.4-5.0); CALCIUM 7.7 mg/dL (8.5-10.1); CREATININE 0.5 mg/dL (0.7-1.3); DIRECT BILIRUBIN 0.2 mg/dL (<0.1-0.2); PHOSPHORUS 3.4 mg/dL (2.5-4.9); POTASSIUM 4.1 mmol/L (3.5-5.1); TOTAL BILIRUBIN 0.4 mg/dL (0.2-1.0); TOTAL PROTEIN 5.2 g/dL (6.4-8.2)
--- NOTE | 2020-05-02 18:17 | NUR ---
SPOKE TO DAUGHTER 3 TIMES TODAY AND UPDATED HER ON PATIENT CONDITION AND PLAN OF CARE. DISCUSSED PATIENT NOT BEING RESPONSIVE WITH DAUGHTER AND DR. SULTANA. WILL CONSIDER CT OF HEAD AT SOME POINT PER DR. SULTANA. PRONED AT 1600, TOLERATING WELL. PEEP DOWN TO 10 AND FIO2 AT 45%.
[2020-05-03] VITALS (64 sets, daily range): BP systolic 86–165; BP diastolic 39–82
--- NOTE | 2020-05-03 05:53 | NUR ---
0240-3 RN'S AND ONE RT PUT PT BACK INTO SUPINE POSITION. INCREASED DOPAMINE DRIP PER PROTOCOL FOR SLIGHTLY LOWER BP AND HR AFTER REPOSITIONING. INCREASED FIO2 TO 50% TO KEEP SATS ABOVE 90%. 0550-CALLED CONSTRUCTION OR [employer] LABORER LAMAR REGARDING A 21-BEAT RUN OF VTACH AT 0529. PT HR RETURNED TO BASELINE. RECEIVED ORDER TO ADD A MAGNESIUM TO AM LABS TO CHECK FOR ELECTROLYTE IMBALANCE AND HAVE CARDIOLOGY F/U IN AM.
[2020-05-03 06:00] LABS: HEMATOCRIT 36.8 % (42.0-52.0); HEMOGLOBIN 12.2 gm/dL (14.0-18.0); MCH 29.8 pg (26.0-34.0); MCHC 33.3 g/dL (28.0-37.0); MCV 89.5 fL (80.0-100.0); RBC 4.11 mil/uL (4.50-6.00); RDW 14.7 % (10.5-14.5); WBC 14.4 thou/uL (4.0-11.0)
[2020-05-03 06:11] LABS: ALBUMIN 1.3 g/dL (3.4-5.0); CALCIUM 7.4 mg/dL (8.5-10.1); CREATININE 0.5 mg/dL (0.7-1.3); DIRECT BILIRUBIN 0.2 mg/dL (<0.1-0.2); PHOSPHORUS 2.3 mg/dL (2.6-4.7); POTASSIUM 3.8 mmol/L (3.5-5.1); TOTAL BILIRUBIN 0.4 mg/dL (0.2-1.0); TOTAL PROTEIN 4.9 g/dL (6.4-8.2)
--- NOTE | 2020-05-03 09:57 | NUR ---
ASSUMED CARE OF PT AT 0700 SPOKE TO PT'S DAUGHTER AT 0945 AND UPDATED PER POC. SHE WOULD LIKE TO HAVE THE HOSPITALIST OR PULMONOLOGY CALL HER AND UPDATE HER REGARDING A PLAN GOING FORWARD. SHE ALSO WANTED TO KNOW IF CARDIOLOGY WAS GOING TO BE INVOLVED DUE TO HIS LOW HEART RATE AND NEEDING TO BE ON DOPAMINE. SHE ALSO WANTED TO KNOW WHEN THE NEXT CHEST X RAY WOULD BE DONE. THE LAST ONE WAS DONE ON THE AND SHE WANTED TO KNOW HOW THEY KNOW IF THE LUNGS ARE GETTING BETTER OR NOT.
[2020-05-04] VITALS (68 sets, daily range): BP systolic 100–177; BP diastolic 55–89
[2020-05-04 05:57] LABS: ALBUMIN 1.3 g/dL (3.4-5.0); CALCIUM 7.2 mg/dL (8.5-10.1); CREATININE 0.5 mg/dL (0.7-1.3); DIRECT BILIRUBIN 0.2 mg/dL (<0.1-0.2); PHOSPHORUS 1.8 mg/dL (2.5-4.9); POTASSIUM 4.1 mmol/L (3.5-5.1); TOTAL BILIRUBIN 0.5 mg/dL (0.2-1.0); TOTAL PROTEIN 4.8 g/dL (6.4-8.2)
--- NOTE | 2020-05-04 07:30 | NUR ---
ASSUMED CARE AT 1900. PT W/ ELEVATED HR/BP/RR; ALTERNATED DECREASING DOPAMINE GTT AND INCREASING PROPOFOL GTT TO ALLEVIATE SYMPTOMS, SLIGHT IMPROVEMENT. GAVE A DOSE OF IV MORPHINE WHICH HELPED THE BEST TO DECREASE RR AND BP. REPEATED AGAIN AT MIDNIGHT. AFTER MIDNIGHT, PT NOTED TO FLUTTER EYES OPEN AND BLINK SOME. THIS AM, STARTED A LOW DOSE FENTANYL DRIP TO CONTROL PAIN, WHICH DID HELP THE HR/RR/BP. PT NOTED TO HAVE BLEEDING AT LIP ABRASION AND EDEMA/WATER BLISTER ON LEFT EAR R/T PRONING PREV DAY. INCREASED EDEMA TO ENTIRE RIGHT ARM AND HAND, STRONG PULSE PRESENT, KEPT ELEVATED ON MULTIPLE PILLOWS.
--- NOTE | 2020-05-04 08:57 | NUR ---
ASSUMED CARE OF PT AT 0700. DID SEDATION VACATION AT 0800 FOR 20 MINUTES. PT OPENS EYES SPONTANIOUSLY BUT DOES NOT FOLLOW COMMANDS OR REACT TO PAIN.
[2020-05-05] VITALS (61 sets, daily range): BP systolic 85–149; BP diastolic 47–74
[2020-05-05 06:03] LABS: ALBUMIN 1.2 g/dL (3.4-5.0); CALCIUM 7.3 mg/dL (8.5-10.1); CREATININE 0.6 mg/dL (0.7-1.3); DIRECT BILIRUBIN 0.2 mg/dL (<0.1-0.2); PHOSPHORUS 1.9 mg/dL (2.5-4.9); POTASSIUM 3.6 mmol/L (3.5-5.1); TOTAL BILIRUBIN 0.4 mg/dL (0.2-1.0); TOTAL PROTEIN 4.5 g/dL (6.4-8.2)
--- NOTE | 2020-05-05 06:40 | NUR ---
No significant progress toward goals. FiO2 increased to 60% at about 2230 to keep O2 sat > 92%. Sedation titrated up to maintain patient comfort; Fentanyl now at 25 mcg/hr and Propofol at 24 mcg/kg/min. Sedation vacation done and pt spontaneously opened eyes, no tracking or spontaneous movement of extremities; pt became tachycardic up to 105, tachypnic up to 28, breathing labored, skin flushed and diaphoretic. Tolerating tube feeding and water flushes well, no diarrhea or residuals. Urine output 1400 cc this shift. No new areas of skin breakdown.
--- NOTE | 2020-05-05 10:21 | NUR ---
POC UPDATE: PT CONT W/VENT SUPPORT. SEDATION. TF. PT SCHED FOR EEG TODAY. THE PLAN IS TO CONT CURRENT LEVEL OF CARE, POSSIBLY WEAN OFF DOPAMINE.
--- NOTE | 2020-05-05 20:00 | NUR ---
patient not progressing towards dismissal goals. no significant events today. spoke with family on the phone twice.
[2020-05-06] VITALS (58 sets, daily range): BP systolic 89–145; BP diastolic 44–120
[2020-05-06 05:55] LABS: HEMATOCRIT 35.6 % (42.0-52.0); HEMOGLOBIN 11.8 gm/dL (14.0-18.0); MCH 29.7 pg (26.0-34.0); MCHC 33.1 g/dL (28.0-37.0); MCV 89.6 fL (80.0-100.0); RBC 3.98 mil/uL (4.50-6.00); RDW 14.5 % (10.5-14.5); WBC 15.6 thou/uL (4.0-11.0)
[2020-05-06 06:08] LABS: CALCIUM 7.7 mg/dL (8.5-10.1); CREATININE 0.6 mg/dL (0.7-1.3); POTASSIUM 3.5 mmol/L (3.5-5.1)
[2020-05-06 09:47] LABS: BE(vivo) 3.5 mmol/L (-2 to +3); PCO2 32.8 mmHg (35.0-45.0); pH 7.517 (7.360-7.450); sO2 90.7 % (92.0-98.0)
[2020-05-06 09:48] LABS: PO2 52.6 mmHg (80.0-100.0)
--- NOTE | 2020-05-06 17:15 | NUR ---
spoke with daughter jose alejandro on the phone. 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
--- NOTE | 2020-05-06 20:07 | NUR ---
NO SIGNIFICANT CHANGES DURING THE DAY. SPOKE WITH PATIENT FAMILY GABE ABOUT PATIENT STATUS. GABE WANTED TO MAKE SURE THE STAFF KNEW THAT PATIENT COULD NOT RECIEVE AN MRI DUE TO THE TYPE OF "HARDWARE" THAT IS IN PATIENT. AND IT IS NOT MRI COMPATIBLE. PATIENT INCREASED TO 70% FIO2. WILL CONTINUE NURSING PLAN.
[2020-05-07] VITALS (34 sets, daily range): BP systolic 111–177; BP diastolic 49–85
--- NOTE | 2020-05-07 00:47 | NUR ---
ASSUMED CARE OF PATIENT AT 1900. PATIENT ALERT, ORIENTED, PLEASANT. REQUESTING BATH AND NORMAL HOME DOSE OF AMBIEN. COMPLETE BATH GIVEN, WELL SHAMPOO CAP. DEBRA ALMANZAR NP NOTIFIED. AMBIEN INCREASED TO 10MG. 2ND COVID SWAB THAT HAD NOT BEEN COLLECTED DC'D BY DR SARMIENTO BY TELEPHONE AT 0044. PATIENT MED/SURG STATUS. WAITING ON ROOM ORDERS AT THIS TIME. PATIENT PROGRESSING TOWARDS POC GOALS.
--- NOTE | 2020-05-07 02:55 | NUR ---
ASSUMED CARE OF PATIENT AT 1900. VSS, NO S/S DISTRESS. COMPLETE BATH GIVEN, TURNED Q2. NO FAMILY HAS CALLED THIS SHIFT. ATTEMPTING TO WEAN SEDATION. FIO2 TITRATED DOWN TOLERATED.
[2020-05-07 04:17] LABS: BE(vivo) 3.6 mmol/L (-2 to +3); HCO3 27.4 mmol/L (22.0-26.0); PCO2 38.6 mmHg (35.0-45.0); PO2 71.6 mmHg (80.0-100.0); pH 7.469 (7.360-7.450); sO2 95.3 % (92.0-98.0)
[2020-05-07 05:32] LABS: HEMATOCRIT 32.2 % (42.0-52.0); HEMOGLOBIN 10.7 gm/dL (14.0-18.0); MCH 29.7 pg (26.0-34.0); MCHC 33.2 g/dL (28.0-37.0); MCV 89.4 fL (80.0-100.0); PLATELET COUNT 209 thou/uL (150-400); RDW 14.6 % (10.5-14.5); WBC 15.8 thou/uL (4.0-11.0)
[2020-05-07 06:13] LABS: CALCIUM 7.7 mg/dL (8.5-10.1); CREATININE 0.5 mg/dL (0.7-1.3); POTASSIUM 3.7 mmol/L (3.5-5.1)
[2020-05-07 10:20] LABS: ANISOCYTOSIS SLIGHT; POIKILOCYTOSIS SLIGHT
--- NOTE | 2020-05-07 10:47 | NUR ---
ASSUMED CARE OF PT AT 0700 TORSTEN AT BEDSIDE AT 0800, NO NEW ORDERS GIVEN SPOKE TO PT DAUGHTER AT 1030 AND SHE WANTED TO KNOW IF DR. SARMIENTO WOULD GIVE HER A CALL AND EXPLAIN THE CRITERIA FOR PRONING. SHE ALSO WANTED TO KNOW WHAT HIM NOT RESPONDING TO PAIN MEANT AND I TOLD HER THAT IT'S NOT A GREAT SIGN AND WE ARE WORKING ON GETTING THE EEG DONE, SO WE WILL HAVE A BETTER IDEA OF WHAT'S GOING ON WITH HIS BRAIN.
--- NOTE | 2020-05-07 12:29 | HC ---
[facility] [place] [address] CONSULTATION Name: FLACO SINGH Room #: 236-P ADM IN M.R.#: [id number] Admission: 04/26/20 Attend Phys: Alma Mccann Discharge: Date of : 38 Report #: [id number] THIS REPORT FOR: cc: Popeye Crowley,Popeye Lira,Marcial Whitney MD ~ HISTORY OF PRESENT ILLNESS: This is an 80-year-old male patient who is unable to provide any history at all. I talked to the nurses looking after this patient. Subsequently, I went back and reviewed the patient's records in the computer. I talked to the patient's daughter. This patient has a prior history of stroke as well as dementia. He still stays at home and the patient's daughter and her takes care of him. His quality of the life was even poor before he even developed COVID. Now, he has been here with the COVID and nurses tell me they gave the patient sedation vacation and he did not wake up. REVIEW OF SYSTEMS: A 14-point review of systems is positive for dementia, stroke, and the patient needing 24-hour supervision at home. He has left-sided paralysis. He can interact with the family, but his short-term memory is very poor. He is intubated. He is on a vent. He had CTs in the past and that has shown pretty significant atrophy. Those records were reviewed. He has multiple other comorbidities. He had hemorrhage in the past. He had a basal ganglion stroke in the past. This patient has dementia and stroke in the past with poor quality. Now, he developed COVID and he is poorly responsive. I examined him today and he has no response. His pupils are small and does not have much reaction. He did not even have plantars. That was on sedation, but nurses tell me the exam with the sedation was not much different. IMPRESSION: This patient has a poor quality of the life and premorbid state. On top of that, he developed COVID and he does not respond now when the sedation is taken off. I will suggest doing a noncontrast CT of the head. He cannot have MRI because he has a lot of metal in his body. I will suggest talking with the family in detail about being very conservative in his care, both because of poor quality of the life beforehand as well as nonresponsive and after COVID for such a long time, which usually indicate a bad prognosis. I spent more than 50 minutes of time taking care of this patient and majority was spent reviewing his extensive records including my office records and we will discuss with the hospitalist. Thank you very much for this referral. I suspect it will be a good idea to consult Dr. Tripathi especially after doing the CT scan, which the daughter wants. <ELECTRONICALLY SIGNED> By: Marcial Buckner MD 05/07/20 1229 [id number] Marcial Buckner MD /nt
[2020-05-08] VITALS (28 sets, daily range): BP systolic 105–158; BP diastolic 46–77
[2020-05-08 04:56] LABS: HEMOGLOBIN 10.6 gm/dL (14.0-18.0)
--- NOTE | 2020-05-08 10:29 | NUR ---
ASSUMED CARE OF PT AT 0700 PT'S DAUGHTER CALLED AT 1030 AND I UPDATED HER PER POC AND LET HER KNOW DR. CHAVEZ'S PLAN FOR TODAY WAS TO READ THE EEG AND GIVE HER A CALL WITH WHAT HE FINDS.
--- NOTE | 2020-05-08 16:11 | NUR ---
NEUROLOGY S/W PT'S DTR BY PHONE & SHE IS ASKING FOR SEDATION TO BE WEANED OFF. CONT. ON VENT 70% FIO2 AND HAS BEEN PRONING. FOLLOWING TO ASSIST.
[2020-05-08 18:18] LABS: HEMATOCRIT 32.6 % (42.0-52.0); HEMOGLOBIN 10.5 gm/dL (14.0-18.0)
[2020-05-09] VITALS (25 sets, daily range): BP systolic 97–187; BP diastolic 46–77
--- NOTE | 2020-05-09 03:00 | NUR ---
ASSESSMENT: PT REMAIN ALERT TIMES ONE. DOES RESPOND TO PAINFUL STIMULI. OPEN EYES WITH NO TRACKING. DOES GET TACHY (90'S-100) WITH DECREASED IN SEDATION. AFEBRILE. VSS. VENT SETTINGS UNCHANGED: PC, RATE 14, FIO2 70% AND PEEP 10. MINIMAL AMTS OF SUCTIONING PER ETT, SCANT AMTS OF SUCTIONING ORALLY. NG TUBE INTACT WITH VITAL AF INFUSING AT GOAL RATE OF 65CC. RIGHT IJ TL INTACT, DRAWS AND FLUSHES WELL. DID NOT TALK WITH FAMILY MEMEBERS THIS SHIFT. CHOLOHEXIDINE BATH GIVEN THIS SHIFT. BARRIOS PATENT WITH BLOOD TINGE UO. NO BM THIS SHIFT THUS FAR. DR. LUCIANO ROUNDED ON PT EARLIER PART OF THE SHIFT, NO NEW ORDERS GIVEN. PT STATUS QUO. SLOW TO NO PROGRESS TOWARDS DC GOALS, WILL CONTINUE TO MONITOR.
[2020-05-09 03:26] LABS: BE(vivo) 6.3 mmol/L (-2 to +3); HCO3 30.7 mmol/L (22.0-26.0); PCO2 43.5 mmHg (35.0-45.0); PO2 75.3 mmHg (80.0-100.0); pH 7.467 (7.360-7.450); sO2 95.8 % (92.0-98.0)
[2020-05-09 05:25] LABS: HEMATOCRIT 33.6 % (42.0-52.0); MCHC 32.7 g/dL (28.0-37.0); MCV 91.9 fL (80.0-100.0); PLATELET COUNT 185 thou/uL (150-400); RBC 3.66 mil/uL (4.50-6.00); RDW 14.4 % (10.5-14.5); WBC 20.2 thou/uL (4.0-11.0)
[2020-05-09 05:33] LABS: ALBUMIN 1.7 g/dL (3.4-5.0); CREATININE 0.4 mg/dL (0.7-1.3); POTASSIUM 4.3 mmol/L (3.5-5.1); TOTAL BILIRUBIN 0.3 mg/dL (0.2-1.0); TOTAL PROTEIN 4.8 g/dL (6.4-8.2)
--- NOTE | 2020-05-09 11:44 | NUR ---
1144 - SPOKE WITH GABE PT'S DAUGHTER REGARDING LAST NIGHT'S STATUS. PRIMARY QUESTION COMING FROM PT IS PRONING, WHY WE AREN'T DOING IT ANYMORE, WELL SEDATION STATUS. RN TOLD GABE THAT THE GOAL OF ALL ICU PT IS TO TAPER OFF OF SEDATION/VENTILATION TOLERATED POSSIBLE. DAUGHTER VERBALIZED THAT SHE SPOKE WITH NEUROLOGIST AND SHE IS ON THE SAME PAGE REGARDING THAT PLAN AND DOES NOT WANT THE PT TO BE IN PAIN OR ANY DISCOMFORT. GABE REQUESTED THAT RN HELP HER REACH TO ASK CLARIFYING QUESTIONS. RN STATED THAT HE WILL HELP OUT WITH THAT PROCESS. CONTINUING TO MONITOR AT THIS TIME. WILL UPDATE NECESSARY
[2020-05-09 18:59] LABS: MAGNESIUM 2.2 mg/dL (1.8-2.4); POTASSIUM 3.6 mmol/L (3.5-5.1)
--- NOTE | 2020-05-09 22:21 | NUR ---
ASSUMED CARE OF PATIENT AT 1910 FOLLOWING REPORT FROM DAY SHIFT RN. PATIENT REMAINS PRONE AT PRESENT. PATIENT HAS PVC EVERY 5TH BEAT. CONTINUE TO MONITOR. REMAINS SEDATED ON FENTANYL AND PROPOFOL.
[2020-05-10] VITALS (28 sets, daily range): BP systolic 92–139; BP diastolic 38–64
[2020-05-10 05:45] LABS: HEMATOCRIT 30.9 % (42.0-52.0); HEMOGLOBIN 10.2 gm/dL (14.0-18.0); MCH 30.2 pg (26.0-34.0); MCV 91.5 fL (80.0-100.0); PLATELET COUNT 190 thou/uL (150-400); RBC 3.37 mil/uL (4.50-6.00); RDW 14.6 % (10.5-14.5); WBC 22.4 thou/uL (4.0-11.0)
[2020-05-10 05:46] LABS: CALCIUM 8.1 mg/dL (8.5-10.1); CREATININE 0.4 mg/dL (0.7-1.3); POTASSIUM 3.7 mmol/L (3.5-5.1)
[2020-05-10 06:30] LABS: ABSOLUTE NEUTROPHILS 19.9 thou/uL (1.4-8.2); ATYPICAL LYMPHS 1 %
--- NOTE | 2020-05-10 10:35 | NUR ---
PT SEEN BY / PER LAST NIGHT'S ECTOPY IS R/T ATRIAL TACHYCARDIA AND NO INTERVENTION IS WARRANTED, RN REPORTED K/MG RECENT LEVELS. SPOKE WITH THE DTR OF THE PT, IT WAS STATED DTR HAS ELECTED TO HAVE THE PT RECEIVE TRACH/PEG SURGERY. GROUP WAS CONSULTED AND RN IS CURRENTLY AWAITING PHONE CALL BACK AT THIS TIME.
[2020-05-11] VITALS (36 sets, daily range): BP systolic 84–160; BP diastolic 41–67
--- NOTE | 2020-05-11 08:41 | NUR ---
PATIENT NOT PROGRESSING TOWARS GOALS, UNABLE TO DO SEDATON VACTIN DUE TO HIGH FIO2 70%. PLAN FOR TRACH AND PEG TUBE PLACEMENT IN THE NEXT 24 TO 48 HOURS. PATIENT WAS ABLE TO DECRESE TO 60% FIO2 BY END OF SHIFT.
--- NOTE | 2020-05-11 11:14 | NUR ---
PT SEEN BY , PER CONTRAINDICATION FOR PRONING INCLUDES HEMODYNAMICALLY INSTABILITY AEB MAP<65 AND/OR MULTIPLE PRESSORS. PT HAS NONE OF BOTH SO PRONING WILL PROCEED AT 1300. PT'S OVERALL APPEARANCE THE SAME YESTERDAY. RN WILL UPDATE. 1116 - PT'S SUDDEN DESAT, FROM FIO2 OF 60, FIO2 INCREASED TO 100, SAO2 AT 90. RN AND RT IN ROOM
--- NOTE | 2020-05-11 16:01 | NUR ---
PATIENT WAS PLACED IN A PRONE POSITION AT 1500. THREE NURSES AND AN RT WERE PRESENT. NO ISSUES TUBE STILL IN POSITION AND TAPED. PAVEL REMOVED, THERE WAS SKIN BREAKDOWN UNDER THE PADS AND NURSING WAS NOTIFIED THAT THE WOUND NEEDED TO BE TREATED.
--- NOTE | 2020-05-11 21:40 | NUR ---
2129: Pt sat dropped to 86-88% and sustained despite suctioning. FiO2 increased to 60%, sat now 94%. Pt remains prone.
[2020-05-12] VITALS (39 sets, daily range): BP systolic 86–160; BP diastolic 43–109
--- NOTE | 2020-05-12 00:29 | NUR ---
FiO2 dropped back down to 50% at approximately 2330; pt desaturated down to 84% - 86% at 2345. Pt changed back to supine position from prone position and FiO2 increased to 100% per RT. Pt suctioned large amount of thick yellowish white sputum but sat still took several minutes to respond. Sedation increased, Fentanyl up to 40 mcg/hr and Propofol to 35 mcg/kg/min. Pt sat finally up to 90-91% on FiO2 100%. Pulling Tv 700, respiratory rate 18. Tube feeding restarted after air auscultated over stomach to check NG tube placement.
--- NOTE | 2020-05-12 01:28 | NUR ---
Pt dropped O2 sat to 86-87% again at 0115 while on FiO2 100%. Heart rate up to 122, BP 145/109. Pt suctioned moderate amount thick white sputum. RT here drawing ABGs.
--- NOTE | 2020-05-12 01:32 | NUR ---
Pt given Morphine 4 mg IVP and sedation increased to Propofol 50 mcg/kg/min and Fentanyl 50 mcg/hr due to tachycardia up to 150 and sat dropped to 80%, respiratory rate 21-26. Waiting for ABG results to call Dr. Chavez.
[2020-05-12 01:34] LABS: BE(vivo) 6.3 mmol/L (-2 to +3); HCO3 28.8 mmol/L (22.0-26.0); PCO2 34.1 mmHg (35.0-45.0); pH 7.544 (7.360-7.450); sO2 86.7 % (92.0-98.0)
--- NOTE | 2020-05-12 01:41 | NUR ---
Spoke with Dr. Chavez regardin ABGs, pO2 only 45%/ Stat Chest xray ordered, peep increased to 12, plan to give 25% albumin and Lasix.
--- NOTE | 2020-05-12 02:00 | NUR ---
DaughterEvans, called and updated on pt condition and changes in POC.
[2020-05-12 05:10] LABS: ABSOLUTE NEUTROPHILS 17.4 thou/uL (1.4-8.2); BASOPHILS 0.3 % (0.0-2.0); HEMATOCRIT 29.4 % (42.0-52.0); HEMOGLOBIN 9.7 gm/dL (14.0-18.0); LYMPHOCYTES 3.5 % (24.0-44.0); MCH 30.2 pg (26.0-34.0); MCHC 33.1 g/dL (28.0-37.0); MCV 91.3 fL (80.0-100.0); MONOCYTES 4.1 % (1.0-8.0); PLATELET COUNT 158 thou/uL (150-400); POLYS 91.1 % (36.0-66.0); RBC 3.23 mil/uL (4.50-6.00); RDW 14.9 % (10.5-14.5); WBC 19.1 thou/uL (4.0-11.0)
[2020-05-12 05:12] LABS: ALBUMIN 2.2 g/dL (3.4-5.0); CALCIUM 7.9 mg/dL (8.5-10.1); CREATININE 0.5 mg/dL (0.7-1.3); POTASSIUM 3.4 mmol/L (3.5-5.1); TOTAL BILIRUBIN 0.7 mg/dL (0.2-1.0); TOTAL PROTEIN 4.9 g/dL (6.4-8.2)
--- NOTE | 2020-05-12 06:09 | NUR ---
Pt's daughter, Evans, updated on pt status. Pt had 400 cc of concentrated urine out post Lasix and 25% albumin. Monitor remains sinus rhythm with BBB and frequent PVC's. Sat 92% on FiO2 100% and peep 12. Still suctioning moderate amounts of thick white sputum per ETT, oral secretions not as copious as before. Tolerating tube feeding well -- had BM x1 this shift, brown, soft, unformed, moderate amount -- and has not had any residuals. 0600 water bolus held due to high FiO2 requirements and possible volume overload.
--- NOTE | 2020-05-12 08:43 | NUR ---
ASSUMMED CARE OF PATIENT FROM THE NIGHT NURSE, SUSANA PERDOMO AT 0700. FIO2 INITIALLY DECREASED TO 80% O2 SAT WAS 96%. FIO2 FELL TO 90 TO 91% AND THEN FIO2 INCREASED TO 100% AND O2 SAT NOW GREATER THAN 96%. WILL CONTINUE TO MONITOR. TUBE FEEDINGS OFF PER 0.
--- NOTE | 2020-05-12 10:25 | NUR ---
SPOKE WITH PATIENT'S DAUGHTER, GABE AND UPDATED HER ON THE PATIENT'S STATUS AND POC. REASSURANCE GIVEN.
--- NOTE | 2020-05-12 10:28 | NUR ---
Nutrition: If plan pt to prone 10-12 hrs daily consider change tube feeds to 2 Oswaldo HN 3 cans daily or administer via gravity with beneprotein powder in water flushes to better meet needs
--- NOTE | 2020-05-12 11:57 | NUR ---
Spoke at length with daughter Nancy at [phone] about trach/peg and transition to an LTAC. Explained LTAC care and gave numbers to [facility] and [facility]. Also alerted Dr. Chavez to call daughter to answer questions. CM will follow once trach/peg have been established and need for transition to LTAC becomes apparent. CM will follow for discharge needs.
[2020-05-12 15:19] LABS: INR 1.1; PROTIME 11.6 Seconds (9.3-11.4)
--- NOTE | 2020-05-12 18:25 | NUR ---
PATIENT PROGRESSING SLIGHTLY TOWARD OUTCOME GOALS, BUT REMAINS CRITICAL. VENT SETTINGS SLOWLY DECREASED WITH SATS GREATER THAN 90%. SPUTUM CULTURE SENT. REMAINS NPO AND WITH BLOOD SUGAR 182 AT 1730, DR BRAD MAZARIEGOS, AWAITING RESPONSE. PLEASE REFER TO ASSESSMENTS.
--- NOTE | 2020-05-12 23:13 | NUR ---
Pt care assumed at 1900. Pt O2 sat was 86% on peep 6 and FiO2 60%. At 1929 FiO2 raised to 70% and peep to 10. At 1999 sat still 88%, RT notified and they titrated FiO2 to 100% until sat > 90%; at 2024 FiO2 titrated back to 70% per RT but sat dropped rapidly back to 88%. FiO2 titrated up 80%, peep kept at 10. Pt O2 sat now 93-98% even with turning.
[2020-05-13] VITALS (42 sets, daily range): BP systolic 104–162; BP diastolic 43–99
--- NOTE | 2020-05-13 03:04 | NUR ---
Pt's sat dropped to 86% at 0250. FiO2 increased to 100%, pt suction with almost no sputum return . Sat now up to 90-92% Peep remains at 10.
--- NOTE | 2020-05-13 10:57 | NUR ---
ASSUMED CARE AT 0700. SPOKE WITH PATIENT'S DAUGHTER, GABE, FROM [phone] AND SHE WAS UPDATED AND EDUCATED ON PATIENT CONDITION AND PLAN OF CARE.
--- NOTE | 2020-05-13 14:04 | NUR ---
I.T. IS TO INSTALL [employer] ON ROLLAROUND TABLET. THIS WILL ENABLE PT'S DAUGHTER TO VIDEO CONFERENCE W HER DAD USING HER ANDROID PHONE.--VW
[2020-05-13 21:38] LABS: MAGNESIUM 2.1 mg/dL (1.8-2.4); POTASSIUM 3.1 mmol/L (3.5-5.1)
[2020-05-14] VITALS (24 sets, daily range): BP systolic 106–134; BP diastolic 40–77
[2020-05-14 04:28] LABS: HEMATOCRIT 27.4 % (42.0-52.0); MCH 30.2 pg (26.0-34.0); MCHC 32.7 g/dL (28.0-37.0); MCV 92.4 fL (80.0-100.0); RBC 2.97 mil/uL (4.50-6.00); RDW 15.4 % (10.5-14.5); WBC 13.3 thou/uL (4.0-11.0)
[2020-05-14 04:29] LABS: CALCIUM 7.9 mg/dL (8.5-10.1); CREATININE 0.5 mg/dL (0.7-1.3); POTASSIUM 3.6 mmol/L (3.5-5.1)
--- NOTE | 2020-05-14 10:33 | NUR ---
ASSUMED CARE AT 0700. PATIENT'S DAUGHTER, GABE, CALLED FROM [phone] AND SHE WAS UPDATED AND EDUCATED ON PATIENT'S CONDITION AND PLAN OF CARE.
--- NOTE | 2020-05-14 15:25 | NUR ---
SW reviewed chart and spoke with nursing. Pt remains intubated and sedated. Pt is minimally responsive when off sedation. Surgery has discussed trach/peg placement with pt's family. Family is wanting to continue aggressive treatment and pursue trach/peg placement when medically stable. [facility]OTT is following to assist as needed with discharge planning.
[2020-05-15] VITALS (27 sets, daily range): BP systolic 95–188; BP diastolic 46–80
[2020-05-15 04:56] LABS: BE(vivo) 7.1 mmol/L (-2 to +3); HCO3 30.7 mmol/L (22.0-26.0); PCO2 39.3 mmHg (35.0-45.0); sO2 91.5 % (92.0-98.0)
[2020-05-15 04:57] LABS: PO2 55.4 mmHg (80.0-100.0)
[2020-05-15 06:14] LABS: HEMOGLOBIN 9.2 gm/dL (14.0-18.0); MCHC 32.7 g/dL (28.0-37.0); MCV 91.7 fL (80.0-100.0); RBC 3.06 mil/uL (4.50-6.00); RDW 15.4 % (10.5-14.5); WBC 12.5 thou/uL (4.0-11.0)
[2020-05-15 06:26] LABS: CALCIUM 7.9 mg/dL (8.5-10.1); CREATININE 0.5 mg/dL (0.7-1.3); POTASSIUM 3.6 mmol/L (3.5-5.1)
--- NOTE | 2020-05-15 07:53 | NUR ---
PT NOT PROGRESSING TOWARD GOALS. PT WILL DESAT 88-89 WITH POOR OXYGENATION PER ABG. WILL INCREASE OF SEDATION, 02SAT IMPROVE TO 94%. EYES OPEN, DO NOT TRACK OR FOLLOW COMMANDS. SEE [facility] FOR ASSESSMENTS
[2020-05-15 09:30] LABS: HCO3 32.6 mmol/L (22.0-26.0); PCO2 40.9 mmHg (35.0-45.0); sO2 89.1 % (92.0-98.0)
[2020-05-15 09:31] LABS: PO2 50.2 mmHg (80.0-100.0)
--- NOTE | 2020-05-15 10:19 | NUR ---
Nutrition needs reassessed. Pt currently on 40ml/hr vital AF 1.2. If physician agrees, recommend new final goal of 50ml/hr. 1 packet beneprotein in each water flush
--- NOTE | 2020-05-15 11:10 | NUR ---
ON THE VENT, LIGHTLY SEDATED FOR VENT MANAGEMENT. TOLERATING TUBEFEEDING PER OGT. DAUGHTER CALLED AND WAS UPDATED. PATIENT DESATURATED EARLIER, ABG OBTAINED BY RT JANET AND FIO2 INCREASED TO 100%.
--- NOTE | 2020-05-15 16:25 | NUR ---
DAUGHTER CALLED THIS AFTERNOON AND WAS UPDATED AND QNS ANSWERED.
[2020-05-16] VITALS (32 sets, daily range): BP systolic 83–137; BP diastolic 41–107
[2020-05-16 06:00] LABS: HEMATOCRIT 27.1 % (42.0-52.0); HEMOGLOBIN 9.2 gm/dL (14.0-18.0); MCH 30.8 pg (26.0-34.0); MCHC 33.8 g/dL (28.0-37.0); MCV 91.1 fL (80.0-100.0); RBC 2.98 mil/uL (4.50-6.00); RDW 15.4 % (10.5-14.5); WBC 10.2 thou/uL (4.0-11.0)
[2020-05-16 06:07] LABS: CALCIUM 7.7 mg/dL (8.5-10.1); CREATININE 0.5 mg/dL (0.7-1.3); POTASSIUM 3.1 mmol/L (3.5-5.1)
--- NOTE | 2020-05-16 06:38 | NUR ---
ASSUMED CARE AT 1900. FIRST RESIDUAL ON NG TUBE WAS 250 ML, BUT 2ND AND 3RD RESIDUALS WERE LESS THAN 30 ML. SLUGGISH PUPIL RESPONSE, POOR GAG, SLIGHT REACTION TO PAIN. HEAVY WEEPING FROM BILAT ARMS; NOTED TO HAVE RED SPOT ON LEFT LAT FOOT, PHOTOGRAPH TAKEN. RT TITRATED FIO2 DOWN TO 80%, SATS MID 90'S. FREQ PVC'S ON TELE, WITH ONE 18 BEAT RUN OF VTACH 0026. NOT PROGRESSING TOWARDS GOALS.
--- NOTE | 2020-05-16 09:55 | NUR ---
ASSUMED CARE AT 0700. SPOKE WITH PATIENT'S DAUGHTER, GABE, FROM [phone] AND SHE WAS UPDATED AND EDUCATED ON THE PATIENT'S CONDITION AND PLAN OF CARE.
--- NOTE | 2020-05-16 11:00 | NUR ---
cm notified that hospitalist passed on to cm team, that family/daughter wanting to move to comfort care if she can be here. will discuss during los phone call. lorena remain on vent, with nutritional support. reported his arms weeping now, he is ill. will cont following as needed for dc needs.
[2020-05-17] VITALS (29 sets, daily range): BP systolic 104–141; BP diastolic 36–65
--- NOTE | 2020-05-17 01:13 | NUR ---
0050-REPOSITIONED PT BY PULLING UP AND TURNING TO RIGHT SIDE. O2 SATS DROPPED TO LOW 80'S. SUCTIONED PT AND REPOSITIONED HEAD, NO CHANGE TO SATS; CHANGED O2 PROBES WITHOUT IMPROVEMENT. REMOVED WEDGES FROM UNDER LEFT SIDE AND STRAIGHTENED BODY ALIGNMENT, BUT NOT CHANGE. INCREASED PROPOFOL D/T PT PULLING ABOUT 1L VOLUME AND OVER BREATHING VENT; NO CHANGE. PULLED PT UP IN BED AND TURNED BACK ONTO LEFT SIDE AND GAVE PRN DOSE IVP VERSED, PT'S SATS BACK UP TO UPPER 90'S. AT THIS TIME, PT ALSO IN/OUT OF BI- AND TRI-GEMINY OR WITH FREQ PVC'S; LUNG SOUNDS VERY COARSE WITH RHONCHI IN ALL QUADRANTS. WILL CONTINUE TO MONITOR.
[2020-05-17 09:48] LABS: CALCIUM 7.6 mg/dL (8.5-10.1); CREATININE 0.6 mg/dL (0.7-1.3); MAGNESIUM 1.7 mg/dL (1.8-2.4); POTASSIUM 3.1 mmol/L (3.5-5.1)
[2020-05-18] VITALS (31 sets, daily range): BP systolic 88–143; BP diastolic 39–72
--- NOTE | 2020-05-18 06:42 | NUR ---
GAVE THREE DOSE OF IVP VERSED AND ONE DOSE OF IVP MORPHINE OVERNIGHT TO EASE WORK OF BREATHING/PULLING HIGH VOLUMES ON VENT/INCR RR MID-20'S. ALSO INCREASED PROPOFOL GTT SLIGHTLY. GRADUALLY HAD TO INCREASE FIO2 BACK TO 100% OVERNIGHT SATS KEPT DROPPING INTO UPPER 80'S. HR THIS AM HAS BEEN GRADUALLY INCREASING INTO 90'S AND LOW 100'S. NOT PROGRESSING TOWARDS GOALS.
[2020-05-18 10:02] LABS: CREATININE 0.4 mg/dL (0.7-1.3); POTASSIUM 3.4 mmol/L (3.5-5.1)
[2020-05-18 10:51] LABS: HEMATOCRIT 27.8 % (42.0-52.0); HEMOGLOBIN 9.1 gm/dL (14.0-18.0); MCH 30.1 pg (26.0-34.0); MCHC 32.8 g/dL (28.0-37.0); RBC 3.02 mil/uL (4.50-6.00); RDW 15.8 % (10.5-14.5); WBC 9.8 thou/uL (4.0-11.0)
--- NOTE | 2020-05-18 15:30 | NUR ---
TURNED PT FOR CARES, 02 SAT DROPPED TO 75%. INCREASED F102 100%. RT NOTIFIED.
--- NOTE | 2020-05-18 16:40 | NUR ---
Nancy Hussein- daughter called to inquire regarding pt status. updated on oxygenation on vent and febrile status. Dr. Arrington recently present, dc'd enhanced precautions status.
--- NOTE | 2020-05-18 18:17 | NUR ---
PT NOT PROGRESSING TOWARDS GOALS. REMAINS ON 100%. TOLORATING TUBE FEEDINGS. REPLACING KCL. REMAINS SEDATED ON DIPRIVAN, VERSED AND FENTANYL.
[2020-05-19] VITALS (29 sets, daily range): BP systolic 95–149; BP diastolic 37–58
[2020-05-19 04:24] LABS: HEMATOCRIT 23.7 % (42.0-52.0); HEMOGLOBIN 7.9 gm/dL (14.0-18.0); MCH 30.6 pg (26.0-34.0); MCHC 33.3 g/dL (28.0-37.0); MCV 91.9 fL (80.0-100.0); RBC 2.58 mil/uL (4.50-6.00); RDW 15.6 % (10.5-14.5); WBC 5.3 thou/uL (4.0-11.0)
[2020-05-19 04:37] LABS: CALCIUM 7.8 mg/dL (8.5-10.1); CREATININE 0.5 mg/dL (0.7-1.3); POTASSIUM 3.4 mmol/L (3.5-5.1)
--- NOTE | 2020-05-19 08:57 | NUR ---
sedation decreased since pt unresponsive. sa02 decreased to 79%. sedation increased.
--- NOTE | 2020-05-19 11:47 | NUR ---
WOUND CARE CONSULT; PT REMAINS ON VENT, DISCUSSED L FOOT WOUNDS W/ FORESTRY FIRE AID JADE, DTI PRESENT L LATERAL FOOT AND L MEDIAL HEEL AREA, FEET WARM TO TOUCH, DP PULSE WEAK, HAD PRAFO BOOTS ON, NO S/S INFECTION, SCANT REDDISH DRAINAGE L MEDIAL HEAL WOUND, NO OPEN AREA L LATERAL FOOT WOUND RECOMMENDATIONS; 1-CLEANSE W/ NS 2-APPLY BORDER FOAM DRSG DAILY 3-PRAFO BOOTS ON AT ALL TIMES, TURN Q 2HOURS, OFF LOADING FORESTRY FIRE AID AWARE
--- NOTE | 2020-05-19 18:45 | NUR ---
returned Evans Hussein's call. updated on pt status including decrease in sedation with resp labored, decrease in sa02 to 79%. with decrease in sedation pt not able to open eyes or follow commands. sedation increased until pt tolerating vent with resp even and unlabored. updated on vent settings, vital signs. requesting to have covid test repeated. explained that he has been removed from isolation however he is remains in the same area in the hospital. she requested to have Dr. Arrington call her and informed when present. poor bath design sales consultant on phone made it very difficult to understand or totally impossible to understand the conversation. she returned call however intermittent poor bath design sales consultant from her phone.
[2020-05-20] VITALS (28 sets, daily range): BP systolic 93–121; BP diastolic 43–68
[2020-05-20 04:23] LABS: PCO2 48.8 mmHg (35.0-45.0); PO2 97.8 mmHg (80.0-100.0); pH 7.435 (7.360-7.450); sO2 97.5 % (92.0-98.0)
[2020-05-20 05:39] LABS: ABSOLUTE NEUTROPHILS 4.5 thou/uL (1.4-8.2); BASOPHILS 0.9 % (0.0-2.0); EOSINOPHILS 2.8 % (0.0-3.0); HEMATOCRIT 24.2 % (42.0-52.0); HEMOGLOBIN 7.9 gm/dL (14.0-18.0); LYMPHOCYTES 7.5 % (24.0-44.0); MCH 30.3 pg (26.0-34.0); MCHC 32.6 g/dL (28.0-37.0); MONOCYTES 3.9 % (1.0-8.0); PLATELET COUNT 168 thou/uL (150-400); POLYS 84.9 % (36.0-66.0); WBC 5.3 thou/uL (4.0-11.0)
[2020-05-20 06:29] LABS: ALBUMIN 1.4 g/dL (3.4-5.0); CREATININE 0.5 mg/dL (0.7-1.3); POTASSIUM 3.8 mmol/L (3.5-5.1); TOTAL BILIRUBIN 0.3 mg/dL (0.2-1.0); TOTAL PROTEIN 5.3 g/dL (6.4-8.2)
--- NOTE | 2020-05-20 06:32 | NUR ---
PT REMAINS INTUBATED ON 100% FI02 AND SEDATED ON PROPOFOL, VERSED, AND FENTANYL. THIS RN IS ATTEMPTING TO TITRATION SEDATION, REFER TO MED TITRATION INTERVENTION. GCS REMAINS A 3. SPOKE WITH GABE (CARMEN) IN DEPTH LAST NIGHT REGARDING PTS CONDITION. ALL QUESTIONS WERE ANSWERED. PT IS NOT PROGRESSING TOWARDS GOAL.
--- NOTE | 2020-05-20 10:30 | NUR ---
chart review. he remains on vent, with nutritional support. noted that bedside staff have already spoke with daughter jose alejandro via phone call. he is now a dnr. will cont following as needed for dc needs.
--- NOTE | 2020-05-20 18:03 | NUR ---
ASSUMED CARE AT 1600. PATIENT NOT PROGRESSING TOWARDS THE PLAN OF CARE EVIDENCED BY CONTINUED HIGH OXYGEN DEMANDS AND UNRESPONSIVENESS WHEN SEDATION IS LOWERED.
[2020-05-21] VITALS (53 sets, daily range): BP systolic 52–151; BP diastolic 23–92
--- NOTE | 2020-05-21 00:37 | NUR ---
This RN proned patient at 2330. Tolerating very well. O2 saturation improved. Will continue to monitor.
[2020-05-21 04:00] LABS: BE(vivo) 8.9 mmol/L (-2 to +3); HCO3 32.4 mmol/L (22.0-26.0); PCO2 39.7 mmHg (35.0-45.0); pH 7.529 (7.360-7.450); sO2 86.8 % (92.0-98.0)
[2020-05-21 04:01] LABS: PO2 46.2 mmHg (80.0-100.0)
[2020-05-21 05:12] LABS: HEMATOCRIT 26.6 % (42.0-52.0); HEMOGLOBIN 8.8 gm/dL (14.0-18.0); MCH 30.6 pg (26.0-34.0); MCV 92.6 fL (80.0-100.0); PLATELET COUNT 241 thou/uL (150-400); RBC 2.87 mil/uL (4.50-6.00); RDW 16.5 % (10.5-14.5); WBC 7.4 thou/uL (4.0-11.0)
[2020-05-21 05:26] LABS: ALBUMIN 1.5 g/dL (3.4-5.0); CALCIUM 8.2 mg/dL (8.5-10.1); CREATININE 0.5 mg/dL (0.7-1.3); POTASSIUM 3.4 mmol/L (3.5-5.1); TOTAL BILIRUBIN 0.4 mg/dL (0.2-1.0); TOTAL PROTEIN 5.5 g/dL (6.4-8.2)
[2020-05-21 09:03] LABS: ABSOLUTE NEUTROPHILS 6.5 thou/uL (1.4-8.2); PLATELET ESTIMATE NORMAL
--- NOTE | 2020-05-21 14:08 | NUR ---
WOUND CARE F/U; THE PATIENTS TWO DEEP TISSUE INJURIES ARE BEING OFFLOADED EFFECTIVELY DUE TO THE PRONE POSITIONING. THE LEFT HEEL AND LATERAL FOOT WOUNDS ARE CLINICALLY IMPROVED. RECOMMENDATIONS; ADD BETADINE SWAB TO THE AREAS TO LEFT HEEL AND FOOT WELL M/W/F PRN. DISCUSSED WITH RN.
--- NOTE | 2020-05-21 14:47 | NUR ---
chart review, report from bedside nurse with tx and care. cm visited with daughter jose alejandro she remembered cm from when her dad was on acute rehab here a few times. " oh thank you for call and checking on us too. sure dad not look well and his supnky self right now. i do trust in god. thank you all"/daughter jose alejandro. will cont to follow as needed for dc needs. lorena cont to need vent support and nutritional support.
--- NOTE | 2020-05-21 14:54 | EEG ---
[facility] [place] [address] ELECTROENCEPHALOGRAM Name: FLACO SINGH Room #: 236-P ADM IN M.R.#: [id number] Admission: 04/26/20 Attend Phys: Alma Hawkins Discharge: Date of : 36 Report #: [id number] THIS REPORT FOR: //name// DATE OF SERVICE: 05/07/2020 This patient is being evaluated for altered mental status. EEG was done by placing the electrode by standard 10-20 system of electrode placement. At first, EEG was tried and the patient was off sedation. The patient became restless and diaphoretic, lot of artifact is present throughout this EEG. Then, the patient has to be put back on sedation. It would appear that the patient's EEG is about 5-6 Hz and 15 microvolt. It is very difficult to tell the background activity because there is so much artifact present. Photic stimulation is unremarkable. No active epileptiform activity was noticed. IMPRESSION: This is a technically inadequate EEG because it is masked by a lot of artifact. It does not appear to be showing any epileptiform activity and EEG is slow and poorly formed. That is a nonspecific abnormality, which could occur with encephalopathy, effect of psychotropic medication, dementia, etc. It is very difficult to determine the exact background activity in this patient's EEG because of a lot of artifact. <ELECTRONICALLY SIGNED> By: Marcial Buckner MD 05/21/20 1454 [id number] Marcial Buckner MD /roro
--- NOTE | 2020-05-21 17:05 | NUR ---
ASSUMED CARE AT 0700. PATIENT'S DAUGHTER, GABE, CALLED AND SHE WAS SPOKEN TO FROM [phone] AND SHE WAS UPDATED AND EDUCATED ON THE PATIENT'S CONDITION AND PLAN OF CARE. ADDITIONALLY, A PHONE WAS PLACED BY THE PATIENT'S EAR FOR HER TO COMMUNICATE WITH THE PATIENT AND THAT PHONE CALL WAS STARTED AT 1222. PATIENT NOT PROGRESSING TOWARDS THE PLAN OF CARE EVIDENCED BY CONTINUED HIGH OXYGEN DEMAND.
--- NOTE | 2020-05-21 20:39 | NUR ---
This RN spoke to Dr Chavez regarding patients tanking pressures. Levophed gtt started. Discussed agonal breathing, poor respirations. Orders to not prone patient any longer. Will continue to monitor.
[2020-05-22] VITALS (92 sets, daily range): BP systolic 100–150; BP diastolic 35–74
--- NOTE | 2020-05-22 04:52 | NUR ---
This RN called [facility] to inform them of patients GCS score. [facility] referral number received. Placed into chart. Faculty to call with changes in neurological status or change in plans. [facility] does want to pursue patient for possible organ donation.
[2020-05-22 05:14] LABS: HEMATOCRIT 25.9 % (42.0-52.0); HEMOGLOBIN 8.5 gm/dL (14.0-18.0); MCH 30.4 pg (26.0-34.0); RBC 2.82 mil/uL (4.50-6.00); RDW 16.4 % (10.5-14.5)
[2020-05-22 05:27] LABS: CALCIUM 8.2 mg/dL (8.5-10.1); CREATININE 0.5 mg/dL (0.7-1.3); POTASSIUM 3.4 mmol/L (3.5-5.1)
--- NOTE | 2020-05-22 10:48 | NUR ---
Assumed care at 0700, assessment and vital signs completed per ICU protocol. Pt's daughter, Nancy, called RN for an update, security code provided. RN gave update, will continue to monitor.
[2020-05-23] VITALS (81 sets, daily range): BP systolic 78–153; BP diastolic 35–75
--- NOTE | 2020-05-23 04:38 | NUR ---
PT MAKING POOR PROGRESS TOWARDS GOALS. PT ON VENTILATOR WITH FI02 TO 100%. O2 SATS AT 99-100% BUT IMMEDIATELY DROP TO 82% WITH ACTIVITY. EVEN MOMENTARY CHANGING OF VENTILATOR TUBING BY RT CAUSES A RAPID DESATURATION TO THE 80'S. RECOVERY OF O2 SAT TO 100% TAKES APPROXIMATELY ONE HOUR TO ACHIEVE. RESPIRATORY RATE UP TO 26-28BPM DURING THESE HYPOXIC EVENTS WITH GUPPY APPEARANCE TO BREATHING WITH NOTABLE ACCESSORY MUSCLE USE. WITH O2 SAT AT 100% THIS GUPPY BREATHING AND ACCESSORY MUSCLE USE IS STILL PRESENT BUT MUCH LESS PRONOUNCED WITH RATES 19-20BPM. LUNGS COARSE AT TIMES, CLEAR AT TIMES. SEE CHARTING.
[2020-05-23 06:09] LABS: HEMATOCRIT 23.3 % (42.0-52.0); HEMOGLOBIN 7.7 gm/dL (14.0-18.0); MCH 30.6 pg (26.0-34.0); MCV 92.7 fL (80.0-100.0); RBC 2.52 mil/uL (4.50-6.00); RDW 16.7 % (10.5-14.5); WBC 6.1 thou/uL (4.0-11.0)
[2020-05-23 06:22] LABS: CREATININE 0.5 mg/dL (0.7-1.3); POTASSIUM 3.3 mmol/L (3.5-5.1)
--- NOTE | 2020-05-23 10:11 | NUR ---
Assumed care at 0700, assessment and vital signs completed per ICU protocol. Pt's O2 saturation is in the 70s, MAP is in the 50s. Dr. Chavez is notified of vital sigsn. RT called, no further intervention at this time with ventilator settings. RT Camilo suctioned and examined pt. RN will continue to monitor.
--- NOTE | 2020-05-23 14:24 | NUR ---
chart review. remains on vent, nutritional support. bedside nurse tried to get brothers numbers from jose alejandro and was told she wanted to speak with cm. called jose alejandro, re-education on getting brothers numbers to zoom or facetime call, " i want all of our siblings to be in that and would this be enlight of being able to visit?"/jose alejandro. cm passed on question to CNO and icu nurse rubber tire and tubes supervisor. will cont following as needed for dc needs.
[2020-05-24] VITALS (86 sets, daily range): BP systolic 76–143; BP diastolic 17–79
--- NOTE | 2020-05-24 05:57 | NUR ---
ASSUMED CARE OF PATIENT AT 1900. VERY LABILE WITH [address] SARMIENTO NOTIFIED AT O555 THIS AM OF WORSENING CONDITION. CXR ORDERED. PATIENT IS A DNR. NOT PROGRESSING TOWARDS POC GOALS.
[2020-05-24 06:20] LABS: HEMATOCRIT 25.5 % (42.0-52.0); HEMOGLOBIN 8.5 gm/dL (14.0-18.0); MCH 31.1 pg (26.0-34.0); MCHC 33.4 g/dL (28.0-37.0); MCV 93.2 fL (80.0-100.0); RBC 2.73 mil/uL (4.50-6.00); RDW 16.9 % (10.5-14.5); WBC 9.1 thou/uL (4.0-11.0)
[2020-05-24 06:24] LABS: CALCIUM 8.1 mg/dL (8.5-10.1); CREATININE 0.4 mg/dL (0.7-1.3); POTASSIUM 3.5 mmol/L (3.5-5.1)
--- NOTE | 2020-05-24 15:04 | NUR ---
ASSUMED CARE AT 0700. PATIENT'S , GABE, CALLED AND WAS SPOKEN TOO FROM [phone] AND SHE WAS UPDATED AND EDUCATED ON THE PATIENT'S CONDITION AND PLAN OF CARE.
[2020-05-25] VITALS (113 sets, daily range): BP systolic 75–141; BP diastolic 39–67
[2020-05-25 06:13] LABS: HEMATOCRIT 23.8 % (42.0-52.0); HEMOGLOBIN 7.7 gm/dL (14.0-18.0); MCH 30.4 pg (26.0-34.0); MCHC 32.2 g/dL (28.0-37.0); MCV 94.4 fL (80.0-100.0); RBC 2.52 mil/uL (4.50-6.00); RDW 16.7 % (10.5-14.5); WBC 7.4 thou/uL (4.0-11.0)
[2020-05-25 06:17] LABS: CALCIUM 8.1 mg/dL (8.5-10.1); CREATININE 0.7 mg/dL (0.7-1.3); POTASSIUM 3.8 mmol/L (3.5-5.1)
--- NOTE | 2020-05-25 22:01 | NUR ---
Pt care assumed at 1900. At 1944 pt had 190 cc of residual tube feeding; residual returned and tube feeding shut off for 2 hours. Metoclopramide given IVP. Tube feeding restarted at 2144. At 2199 talked with pt's daughter/DPOA, Nancy Hussein; updated her on pt status.
[2020-05-26] VITALS (59 sets, daily range): BP systolic 89–139; BP diastolic 39–69
[2020-05-26 05:47] LABS: HEMATOCRIT 24.6 % (42.0-52.0); HEMOGLOBIN 7.8 gm/dL (14.0-18.0); MCH 29.7 pg (26.0-34.0); MCHC 31.6 g/dL (28.0-37.0); RBC 2.61 mil/uL (4.50-6.00); RDW 16.8 % (10.5-14.5); WBC 11.3 thou/uL (4.0-11.0)
[2020-05-26 06:02] LABS: CALCIUM 7.9 mg/dL (8.5-10.1); CREATININE 1.2 mg/dL (0.7-1.3); POTASSIUM 4.1 mmol/L (3.5-5.1)
[2020-05-26 06:51] LABS: BE(vivo) 2.5 mmol/L (-2 to +3); HCO3 30.8 mmol/L (22.0-26.0); PO2 70.1 mmHg (80.0-100.0); sO2 90.6 % (92.0-98.0)
[2020-05-26 06:52] LABS: PCO2 71.9 mmHg (35.0-45.0)
--- NOTE | 2020-05-26 10:10 | NUR ---
chart reviewed. lorena remains intubated with vent support, and nutritional support as ordered. Noted bedside staff has been in contact with daughter jose alejandro and some family members were giving the ok to visit over past weekend. will cont following as needed for dc needs.
--- NOTE | 2020-05-26 18:17 | NUR ---
05/26/20 FI02 TITRATED THROUGHOUT DAY BY RT, ENDED ON 70% FIO2. LEVO TITRATED TO BLOOD PRESSURE ENDING SHIFT ON 5 MCG. LOW URINE OUTPUT, 155CC TOTAL. PATIENT BATHED. MEAGAN BERNAL UPDATED TWICE VIA PHONE CALL. PATIENT NOT PREOGRESSING TOWARDS GOALS OF CARE. WILL CONTINUE TO MONITOR.
[2020-05-27] VITALS (46 sets, daily range): BP systolic 89–145; BP diastolic 46–67
[2020-05-27 04:41] LABS: BE(vivo) 1.9 mmol/L (-2 to +3); HCO3 29.6 mmol/L (22.0-26.0); PCO2 65.4 mmHg (35.0-45.0); PO2 66.7 mmHg (80.0-100.0); pH 7.274 (7.360-7.450)
--- NOTE | 2020-05-27 05:31 | NUR ---
Critical ABGs called to Dr. Chavez and orders received. AC on vent increased from 24 to 26 and 1 amp of Bicarb given.
[2020-05-27 05:35] LABS: HEMATOCRIT 21.8 % (42.0-52.0); HEMOGLOBIN 7.1 gm/dL (14.0-18.0); MCH 30.4 pg (26.0-34.0); MCHC 32.7 g/dL (28.0-37.0); MCV 93.2 fL (80.0-100.0); RBC 2.34 mil/uL (4.50-6.00); RDW 16.4 % (10.5-14.5); WBC 8.4 thou/uL (4.0-11.0)
[2020-05-27 05:37] LABS: PLATELET COUNT 498 thou/uL (150-400)
[2020-05-27 05:41] LABS: ALBUMIN 1.3 g/dL (3.4-5.0); CALCIUM 7.7 mg/dL (8.5-10.1); CREATININE 1.5 mg/dL (0.7-1.3); POTASSIUM 4.2 mmol/L (3.5-5.1); TOTAL BILIRUBIN 0.3 mg/dL (0.2-1.0); TOTAL PROTEIN 5.5 g/dL (6.4-8.2)
--- NOTE | 2020-05-27 07:34 | NUR ---
0600 WATER BOLUS NOT GIVEN DUE TO LOW SERUM SODIUM. ISSUE DISCUSSED WITH DAY RN WHO WILL CLARIFY ORDERS WITH PHYSICIAN.
--- NOTE | 2020-05-27 09:24 | NUR ---
Assumed care at 0700, assessment and vital signs completed per ICU protocol. RN will continue to monitor.
[2020-05-27 10:33] LABS: ABSOLUTE NEUTROPHILS 6.5 thou/uL (1.4-8.2); ANISOCYTOSIS SLIGHT; METAMYELOCYTES 1 %; MYELOCYTES 2 %; POIKILOCYTOSIS SLIGHT
--- NOTE | 2020-05-27 12:36 | NUR ---
1135-OLLIE BERNAL CALLED, ASKING FOR ENVIRONMENTAL FIELD SERVICES TECHNICIAN.SHE STATED THAT HER BROTHER WAS OK'D BY TO VISIT FROM OUT OF STATE ([place], PER GABE). WHEN ?'D RE:HER COMMENT ON TUESDAY THAT BROTHER WAS COMING IN FROM OUT OF COUNTRY, SHE STATED THAT WASN'T CORRECT. CHECKING W RE:NEED FOR QUARRENTINE? & WILL D/W PACO HDEZ (CHAIN OF COMMAND). LIFT MANAGER CONOR PEÑA,ALSO AWARE.--VW
[2020-05-28] VITALS (92 sets, daily range): BP systolic 82–123; BP diastolic 42–60
--- NOTE | 2020-05-28 01:31 | NUR ---
Patient supined at 0100. Tolerating well. Will continue to monitor.
--- NOTE | 2020-05-28 05:50 | NUR ---
Unable to get morning temperature on patient. Bear hugger placed. Will continue to monitor.
[2020-05-28 06:11] LABS: HEMATOCRIT 22.6 % (42.0-52.0); HEMOGLOBIN 7.2 gm/dL (14.0-18.0); MCH 29.8 pg (26.0-34.0); MCHC 32.1 g/dL (28.0-37.0); MCV 92.8 fL (80.0-100.0); RBC 2.43 mil/uL (4.50-6.00); RDW 16.6 % (10.5-14.5); WBC 8.7 thou/uL (4.0-11.0)
[2020-05-28 06:29] LABS: CALCIUM 7.8 mg/dL (8.5-10.1); CREATININE 1.6 mg/dL (0.7-1.3); POTASSIUM 4.3 mmol/L (3.5-5.1)
--- NOTE | 2020-05-28 06:45 | NUR ---
Patient not progressing towards goals. No neuro improvement. Little urine output. Patient became hypothermic this morning. Levophed still on for blood pressure support.
--- NOTE | 2020-05-28 11:12 | NUR ---
WOUND CARE F/U; THE WOUNDS ARE CURRENTLY STABLE AND HAVE NOT ADVANCED. BOTH WOUNDS HAVE SACABBED AREAS, BRUISING AND SKIN LOSS WITH SMALL AMOUTS OF SEROSANGINOUS DRAINAGE. NO ERYTHEMA TO THE PERIWOUND. OVERALL STABLE SINCE LAST ASSESSMENT. NO S/S OF INFECTION. RECOMMENDATIONS; NO CHANGES RN PRESENT.
--- NOTE | 2020-05-28 11:40 | NUR ---
Ulysses Lucas, son present. updated him on pt status including vent, sedation, difficulty breathing if sedation decreased in the slightest, no cough or gag reflex, unresponsive, almost no urine output. called Dr. Mccain to come to speak with family when he arrived. he requested to have Dr. Chavez come to speak with family. Dr. Chavez present, answered questions and provided pt status information. called Dr. Tripathi to speak with son, unsuccessful attempts. Nancy, daughter called x 2, updated on pt status including unresponsive, no gag or cough, sedation to tolerate vent, vasoactive gtt, almost no urine output and temp low-94 during night- required warming blanket.
--- NOTE | 2020-05-28 15:09 | NUR ---
Per nursing note of 16 at 1312 and approved by nursing administration son; Ulysses Lucas to visit today for 30 minutes. After this visit a return to only designated one visitor will resume on 05-29-20. Spoke with Nancy and gave support and explained that we will continue to stay in touch and to reach out CM if she feels we can be of an assistance. CM will continue to follow for support of family and current needs.
[2020-05-29] VITALS (94 sets, daily range): BP systolic 79–142; BP diastolic 40–70
[2020-05-29 08:38] LABS: BE(vivo) -3.4 mmol/L (-2 to +3); HCO3 23.6 mmol/L (22.0-26.0); PCO2 53.6 mmHg (35.0-45.0); pH 7.262 (7.360-7.450); sO2 93.1 % (92.0-98.0)
--- NOTE | 2020-05-29 09:27 | NUR ---
Assumed care at 0700, assessment and vital signs completed per ICU protocol. Dr. Chavez rounded this am, plan of care discussed. Dr. Chavez made aware of continued renal failure, hyponatremia, critical pH from blood gas, and firm/distended abdomen, in conjunction with no bowel movement. New orders received, RN will continue to monitor.
--- NOTE | 2020-05-29 12:52 | NUR ---
DTR GABE HAD CALLED,ASKING TO SPEAK W MIMEOGRAPHER. CALLED & SPOKE W GABE. SHE ASKED THAT PATIENT'S CODE STATUS BE CHANGED BACK TO FULL CODE. INFORMED . HE STATED HE WOULD CHANGE CODE STATUS.--VW
--- NOTE | 2020-05-29 14:07 | NUR ---
VASCULAR ACCESS NURSE ROUNDING. THIS PATIENT HAS A RIGHT IJ CENTRAL LINE PLACED 04/26 = 33 DAY DWELL. HE CURRENTLY HAS AN INCREASED AMOUNT OF ORAL SECREATIONS SATURATING THE CENTRAL LINE DRESSING. WITH DRESSING CHANGE,THE INSERTION SITE WAS NOTED TO BE SLIGHTLY PINK. SUGGEST PLACING A TUNNELLED CENTRAL CATHETER OR A PICC TO REPLACE THE RIGHT IJ CENTRAL LINE TO DECREASE RISK OF INFECTION.
[2020-05-29 14:34] LABS: HEMOGLOBIN 6.7 gm/dL (14.0-18.0)
[2020-05-29 14:35] LABS: HEMATOCRIT 20.6 % (42.0-52.0); MCH 30.1 pg (26.0-34.0); MCHC 32.4 g/dL (28.0-37.0); RBC 2.22 mil/uL (4.50-6.00); RDW 17.2 % (10.5-14.5); WBC 10.6 thou/uL (4.0-11.0)
[2020-05-29 14:42] LABS: CALCIUM 8.1 mg/dL (8.5-10.1); CREATININE 2.4 mg/dL (0.7-1.3); MAGNESIUM 2.9 mg/dL (1.8-2.4); POTASSIUM 4.7 mmol/L (3.5-5.1)
--- NOTE | 2020-05-29 15:00 | NUR ---
cm notified by cm team and bedside nurse that he changed back to a full code and nephrology was consulted. bedside nurse and icu charge nurse spoke with daughter jose alejandro.
[2020-05-30] VITALS (89 sets, daily range): BP systolic 91–138; BP diastolic 44–69
--- NOTE | 2020-05-30 02:06 | NUR ---
ASSUMED CARE AT 1900. 2100-SPOKE W/PT'S DTR/MEAGAN BERNAL TO OBTAIN CONSENT FOR BLOOD TRANSFUSION, DISCUSSED BENEFITS/RISK AND SHE GAVE VERBAL PERMISSION, WITNESSED BY SECOND RN PER PROTOCOL. 2200-BLOOD TRANSFUSION STARTED. 0130-BLOOD COMPLETED, NO REACTIONS NOTED. TEMPS HAVE BEEN LOW OVERNIGHT DESPITE ADDING WARM BLANKETS, ONCE BLOOD COMPLETE, PLACED PT ON BAREHUGGER, ABOUT 0140.
[2020-05-30 03:47] LABS: HEMATOCRIT 26.4 % (42.0-52.0); HEMOGLOBIN 8.3 gm/dL (14.0-18.0); MCH 28.9 pg (26.0-34.0); MCHC 31.6 g/dL (28.0-37.0); MCV 91.5 fL (80.0-100.0); RBC 2.88 mil/uL (4.50-6.00); RDW 17.2 % (10.5-14.5); WBC 12.3 thou/uL (4.0-11.0)
[2020-05-30 03:53] LABS: CALCIUM 7.9 mg/dL (8.5-10.1); CREATININE 2.3 mg/dL (0.7-1.3); MAGNESIUM 2.9 mg/dL (1.8-2.4); POTASSIUM 5.3 mmol/L (3.5-5.1)
--- NOTE | 2020-05-30 07:06 | EKG ---
[address] [place] [address] ELECTROCARDIOGRAM REPORT Name: FLACO SINGH Room #: 236-P ADM IN M.R.#: [id number] Admission: 04/26/20 Attend Phys: Alma Mccann Discharge: Date of : 36 Report #: [id number] [facility] Test Date: 2020-05-29 Test Time: 16:42:38 Pat Name: FLACO SINGH Department: Room: 236 P Gender: M Dorr Operator: BECCA : 1940 Requested By: Parker Chavez Order Number: [id number] MD: Rick Jo Measurements Intervals Miller Rate: 68 P: 36 WY: 191 QRS: -31 QRSD: 149 T: 146 QT: 406 QTc: 432 Interpretive Statements Sinus rhythm Atrial premature complex Nonspecific intraventricular conduction delay Anterior infarct, old Abnormal T, consider ischemia, lateral leads Compared to ECG 04/29/2020 10:13:17 Atrial premature complex(es) now present Myocardial infarct finding now present Ectopic atrial rhythm no longer present Short WY interval no longer present T-wave abnormality still present Possible ischemia still present Electronically Signed On 05-30-2020 7:06:35 [employer] by Rick Jo [email or web address] <ELECTRONICALLY SIGNED> By: Rick Jo MD, FACC 05/30/20 0706 41 41 Rick Jo MD, FAC /EPI
--- NOTE | 2020-05-30 10:08 | NUR ---
review chart,lorena cont to require vent support and tf for nutritional support. tf decreased rt high residual last night. cont to have lower body temp and changes in bp, nephrology visited yesterday and is not candidate for dialysis. had to have blood transfusion as well. cm visited with daughter jose alejandro via phon call. noted a flat tone voice. no question or concerns voiced. will cont following as needed for dc needs.
--- NOTE | 2020-05-30 19:14 | NUR ---
patient fio2 to 80% today. spoke with daughter jose alejandro over the phone. md's aware of urine output amount. levo weaned to 16mcg.
[2020-05-31] VITALS (93 sets, daily range): BP systolic 69–134; BP diastolic 36–66
[2020-05-31 05:17] LABS: CALCIUM 8.6 mg/dL (8.5-10.1); CREATININE 2.6 mg/dL (0.7-1.3); MAGNESIUM 3.1 mg/dL (1.8-2.4); POTASSIUM 5.6 mmol/L (3.5-5.1)
[2020-05-31 05:51] LABS: HEMOGLOBIN 6.7 gm/dL (14.0-18.0); MCV 90.8 fL (80.0-100.0); WBC 10.8 thou/uL (4.0-11.0)
[2020-05-31 05:53] LABS: HEMATOCRIT 20.2 % (42.0-52.0); MCH 30.3 pg (26.0-34.0); MCHC 33.4 g/dL (28.0-37.0); RBC 2.22 mil/uL (4.50-6.00); RDW 17.8 % (10.5-14.5)
--- NOTE | 2020-05-31 07:26 | NUR ---
ASSUMED CARE AT 1900. GAVE SEDATION VACATION, MORE BRISK PUPIL RESPONSE, BUT STILL NO GAG, COUGH, OR CORNEAL REFLEX; INCREASED RR, BP, AND PULLING HIGHER TIDAL VOLUMES. ABLE TO TITRATE VERSED AND LEVO DOWN SLIGHTLY OVERNIGHT. O2 SATS DROPPED AFTER TURNING TO CLEAN PT UP THEN POSITIONING TO RIGHT SIDE; DESPITE TURNING BACK, PT CONTINUED TO NEED HIGHER FIO2, NOW ON 100% THIS AM. HIGH RESIDUALS ALL NIGHT ON TUBE FEED; THIS AM 300 ML PRESENT, TUBE FEED PLACED ON HOLD. NOT PROGRESSING TOWARDS GOALS.
--- NOTE | 2020-05-31 17:28 | NUR ---
1500 TODAY PATIENT HR BEGAN SUSTAINING 45BPM AND HYPOTENSIVE. DOPAMINE GTT INIITATED. 5MCG/KG/MIN. AT 1550 PATIENT OXYGEN SATURATIONS DECREASED 77-88% DR SARMIENTO NOTIFIED. PEEP SETTINGS CHANGED TO 16. NO IMPROVEMENT WITH OXYGENATION. 1UPRBC INFUSING FOR HGB 6.7 PATIENT CONTINUES TO BE OLIGURIA WITH LITTLE TO NO URINE OUT PUT FOR THE DAY. MDS AWARE. LEVOPHED 19MCG/KG/MIN, DOPAMINE 5MCG/KG/MIN
--- NOTE | 2020-05-31 19:30 | NUR ---
PATIENT DAUGHTER MEAGAN BERNAL NOTIFIED ABOUT PATIENT STATUS. GABE WAS ABLE TO SPEAK WITH PATIENT OVER SPEAKER PHONE IN ROOM.
[2020-05-31 20:07] LABS: HCO3 22.9 mmol/L (22.0-26.0); PCO2 57.8 mmHg (35.0-45.0); PO2 54.2 mmHg (80.0-100.0); pH 7.215 (7.360-7.450); sO2 80.9 % (92.0-98.0)
[2020-05-31 21:28] LABS: HEMATOCRIT 18.9 % (42.0-52.0); HEMOGLOBIN 6.2 gm/dL (14.0-18.0)
--- NOTE | 2020-05-31 23:25 | NUR ---
1944-FIRST UNIT OF PRBC FINISHED; H/H DRAWN AT 2044. 2012-SPOKE WITH DR. SARMIENTO REGARDING STAT ABG/CXR RESULTS. ORDERED PEEP INCREASED TO 18, AND ASKED TO BE NOTIFIED OF H/H RESULTS. 2149-CALLED CRITICAL H/H TO DR. SARMIENTO. TWO MORE UNITS OF BLOOD ORDERED, VASOPRESSIN ADDED. DR. SARMIENTO TO CALL PT'S DTR AND DISCUSS POSSIBILITY OF MAKING PT DNR. 2229-DR. SARMIENTO CALLED BACK, REPORTED GABE STILL WANTED PT TO BE A FULL CODE, BUT SHE IS TO COME TO THE HOSPITAL AT 0900 AND TALK WITH TORSTEN. PT HAS IRREGULAR RHYTHM W/FREQ PVC'S, SOMETIMES IN A JUNCTIONAL RHYTHM.
[2020-06-01] VITALS (121 sets, daily range): BP systolic 63–226; BP diastolic 35–159
[2020-06-01 04:36] LABS: BE(vivo) -7.8 mmol/L (-2 to +3); HCO3 20.8 mmol/L (22.0-26.0); PCO2 56.8 mmHg (35.0-45.0); PO2 79.7 mmHg (80.0-100.0); sO2 92.5 % (92.0-98.0)
[2020-06-01 04:37] LABS: pH 7.182 (7.360-7.450)
[2020-06-01 04:42] LABS: ALBUMIN 3.3 g/dL (3.4-5.0); CALCIUM 8.4 mg/dL (8.5-10.1); CREATININE 2.9 mg/dL (0.7-1.3); MAGNESIUM 3.2 mg/dL (1.8-2.4); PHOSPHORUS 8.5 mg/dL (2.5-4.9); TOTAL BILIRUBIN 1.8 mg/dL (0.2-1.0); TOTAL PROTEIN 6.6 g/dL (6.4-8.2)
[2020-06-01 04:52] LABS: HEMATOCRIT 32.5 % (42.0-52.0); MCH 28.9 pg (26.0-34.0); MCHC 32.4 g/dL (28.0-37.0); MCV 89.2 fL (80.0-100.0); PLATELET COUNT 534 thou/uL (150-400); RBC 3.65 mil/uL (4.50-6.00); RDW 17.3 % (10.5-14.5); WBC 14.1 thou/uL (4.0-11.0)
[2020-06-01 05:04] LABS: HEMOGLOBIN 10.6 gm/dL (14.0-18.0)
[2020-06-01 05:08] LABS: POTASSIUM 6.4 mmol/L (3.5-5.1)
[2020-06-01 06:50] LABS: ABSOLUTE NEUTROPHILS 12.3 thou/uL (1.4-8.2); METAMYELOCYTES 3 %
[2020-06-01 06:51] LABS: PLATELET ESTIMATE INCREASED
--- NOTE | 2020-06-01 10:57 | NUR ---
PT SEEN BY /DR.AL-ABSI RICE SPOKE W/ FAMILY MEMBER THIS MORNING REGARDING OUTLOOK FOR THE PT, PER THEY ARE TO HAVE A CONFERENCE CALL TODAY AT 1400 REGARDING FUTURE/CARE DIRECTION FOR THE PT. RN VERBALIZED UNDERSTANDING, ALSO WAS TOLD BY THAT K OF 6.4 IS KNOWN AND WILL NOT NEED UPDATE FOR IT. 1045 - RN SPOKE WITH DAUGHTER(DPOA) SHE ASKED FOR PT OUTLOOK, RN PROVIDED CURRENT CLINICAL PICTURE OF PT REQUIRING MULTIPLE PRESSORS/SEDATIVES WELL LASIX/HCO/ALBUMIN TREATMENT. ALSO SPOKE ABOUT PT'S OLIGURIA WELL BEING MAXED OUT ON THE VENT, PT'S RESIDUAL AND NEEDING TO STOP TUBE FEEDING, WELL THE CURRENT HEMOGLOBIN LEVEL. PT IS NOT PROGRESSING TOWARDS DISCHARGE AT THIS TIME. RN REMINDED PT'S DAUGHTER TO CALL FOR UPDATE AND WILL BE CONTACTED FOR UPDATE WHEN NEEDED. DPOA VERBALIZED GRATTITUDE.
[2020-06-02] VITALS (60 sets, daily range): BP systolic 73–229; BP diastolic 33–148
[2020-06-02 03:54] LABS: BE(vivo) -2.9 mmol/L (-2 to +3); HCO3 23.6 mmol/L (22.0-26.0); PCO2 48.4 mmHg (35.0-45.0); PO2 64.7 mmHg (80.0-100.0); pH 7.306 (7.360-7.450); sO2 90.6 % (92.0-98.0)
[2020-06-02 04:35] LABS: APTT 35.3 Seconds (24.5-32.8); PROTIME 11.4 Seconds (9.3-11.4)
[2020-06-02 04:40] LABS: ALBUMIN 3.6 g/dL (3.4-5.0); CREATININE 3.1 mg/dL (0.7-1.3); MAGNESIUM 3.2 mg/dL (1.8-2.4); PHOSPHORUS 8.8 mg/dL (2.5-4.9); TOTAL BILIRUBIN 1.1 mg/dL (0.2-1.0); TOTAL PROTEIN 6.3 g/dL (6.4-8.2)
[2020-06-02 05:03] LABS: HEMATOCRIT 30.2 % (42.0-52.0); MCH 29.7 pg (26.0-34.0); MCHC 33.2 g/dL (28.0-37.0); MCV 89.5 fL (80.0-100.0); PLATELET COUNT 501 thou/uL (150-400); RBC 3.38 mil/uL (4.50-6.00); RDW 17.5 % (10.5-14.5); WBC 16.4 thou/uL (4.0-11.0)
[2020-06-02 05:07] LABS: POTASSIUM 6.9 mmol/L (3.5-5.1)
--- NOTE | 2020-06-02 08:30 | NUR ---
chart review, noted 'roc and bedside nurse have had conversation with daughter jose alejandro and brothers, family has chosen dialysis, going to possible get temporary dialysis cath today. lorena cont to require vent support and nutritional support. will cont following as needed for dc needs.
--- NOTE | 2020-06-02 09:52 | NUR ---
Nutrition: tube feeds on hold. When/if able to resume, rec Nepro at 20 mL/hr. RD will follow for approriate goal based on propofol needs.
--- NOTE | 2020-06-02 10:17 | NUR ---
0730-ASSUMED CARE OF PT.--VW 0800-SPOKE W DTR GABE RE:CONSENT FOR TEMP DIALYSIS CATHETER. OBTAINED. UPDATE GIVEN.--VW
[2020-06-02 12:01] LABS: ABSOLUTE NEUTROPHILS 14.9 thou/uL (1.4-8.2); ANISOCYTOSIS 2+; PLATELET ESTIMATE NORMAL
== END 2020-06-02 15:58 | DRG 870 ==
LOC: ER 09:52 → EROBS 11:14 → ICU 11:14
PROVIDERS: Emergency Medicine; Hospitalist; Internal Medicine; Internal Medicine Cardiovascular Disease; Internal Medicine Pulmonary Disease; Nurse Practitioner Family; Pediatrics; Specialist; ADMIT Hospitalist; ATTEND Hospitalist
PROC: XW033E5 Introduction of Remdesivir Anti-infective into Peripheral Vein, Percutaneous Approach, New Technology Group 5 (ICD-10-PCS; principal; 2020-04-26)
PROC: 5A1955Z Respiratory Ventilation, Greater than 96 Consecutive Hours (ICD-10-PCS; principal; 2020-04-26)
PROC: 02HV33Z Insertion of Infusion Device into Superior Vena Cava, Percutaneous Approach (ICD-10-PCS; principal; 2020-04-26)
PROC: 0BH18EZ Insertion of Endotracheal Airway into Trachea, Via Natural or Artificial Opening Endoscopic (ICD-10-PCS; principal; 2020-04-26)
PROC: 02HV33Z Insertion of Infusion Device into Superior Vena Cava, Percutaneous Approach (ICD-10-PCS; 2020-05-02)
PROC: 5A12012 Performance of Cardiac Output, Single, Manual (ICD-10-PCS; 2020-05-02)
PROC: 30233N1 Transfusion of Nonautologous Red Blood Cells into Peripheral Vein, Percutaneous Approach (ICD-10-PCS; 2020-05-29)
PROC: 5A1D90Z Performance of Urinary Filtration, Continuous, Greater than 18 hours Per Day (ICD-10-PCS; 2020-06-01)
PROC: B548ZZA Ultrasonography of Superior Vena Cava, Guidance (ICD-10-PCS; 2020-06-02)
PROC: 02HV33Z Insertion of Infusion Device into Superior Vena Cava, Percutaneous Approach (ICD-10-PCS; 2020-06-02)
DX: A41.89 Other specified sepsis (principal); U07.1 COVID-19; E43 Unspecified severe protein-calorie malnutrition; I21.4 Non-ST elevation (NSTEMI) myocardial infarction; J12.82 Pneumonia due to coronavirus disease 2019; N17.0 Acute kidney failure with tubular necrosis; J80 Acute respiratory distress syndrome; R65.21 Severe sepsis with septic shock; I69.354 Hemiplegia and hemiparesis following cerebral infarction affecting left non-dominant side; E87.0 Hyperosmolality and hypernatremia; G93.1 Anoxic brain damage, not elsewhere classified; E78.5 Hyperlipidemia, unspecified; F03.90 Unspecified dementia, unspecified severity, without behavioral disturbance, psychotic disturbance, mood disturbance, and anxiety; I25.10 Atherosclerotic heart disease of native coronary artery without angina pectoris; E87.6 Hypokalemia; F17.210 Nicotine dependence, cigarettes, uncomplicated; I25.5 Ischemic cardiomyopathy; E86.0 Dehydration; I95.9 Hypotension, unspecified; I10 Essential (primary) hypertension; R31.0 Gross hematuria; E87.5 Hyperkalemia; Z66 Do not resuscitate; Z51.5 Encounter for palliative care; Z96.641 Presence of right artificial hip joint; Z96.651 Presence of right artificial knee joint; Z79.899 Other long term (current) drug therapy; Z95.5 Presence of coronary angioplasty implant and graft; Z79.82 Long term (current) use of aspirin; Z91.040 Latex allergy status; Z68.37 Body mass index [BMI] 37.0-37.9, adult
CPT/HCPCS: 10078; 32110; 85076